=== PATIENT | female | born 1965 | race Caucasian/White ===

== ENCOUNTER → 2020-06-25 08:15 | Outpatient (CLI) | payer BC, SELFPAY ==
[2020-06-25 08:51] LABS: Basophils # 0.1 K/mm3 (0-0.2); Basophils % 0.5 % (0.1-2.0); Eosinophils # 0.3 K/mm3 (0.0-0.4); Eosinophils % 2.4 % (0.1-12.0); Hematocrit 39.4 % (37.0-47.0); Lymphocytes # 5.6 K/mm3 (0.7-4.5); Lymphocytes % 42.7 % (10-50); Mean Corpuscular Hemoglobin 30.9 pg (27.0-31.2); Mean Corpuscular Volume 93.7 fl (81-99); Monocytes # 0.8 K/mm3 (0.1-1.0); Monocytes % 6.2 % (1.7-9.3); Neutrophils # 6.3 K/mm3 (1.8-7.8); Neutrophils % 48.3 % (37.0-80.0); Platelet Count 497 K/mm3 (142-424); Red Cell Distribution Width 13.7 % (11.5-17.5); White Blood Count 13.1 K/mm3 (4.8-10.8)
[2020-06-25 09:21] LABS: Anion Gap 12.7 mEq/L (5-15); Blood Urea Nitrogen 15 mg/dl (7-17); Calcium 9.9 mg/dl (8.4-10.2); Carbon Dioxide 30 mmol/L (22.0-30.0); Chloride 102 mmol/L (98-107); Estimated Glomerular Filt Rate 74 ml/min (>60); GFR (African American) 89 ML/MIN (>60); Glucose 100 mg/dl (74-100); Potassium 4.7 mmoL/L (3.5-5.1); Sodium 140 mmol/L (136-145)
[2020-06-25 10:51] LABS: Coronavirus 19 IgG Antibody Negative (Negative); Coronavirus 19 IgM Antibody Negative (Negative)
== END ==
PROVIDERS: Visit Provider Surgery
DX: L98.9 Disorder of the skin and subcutaneous tissue, unspecified (principal); Z01.818 Encounter for other preprocedural examination
CPT/HCPCS: 36415; 80048; 85025; 86328

== ENCOUNTER 2020-06-26 06:06 | Day surgery (SDC) | payer BC, SELFPAY ==
[2020-06-23 13:43] VITALS: BMI 25.6
[2020-06-26] VITALS (12 sets, daily range): BP systolic 100–131; BP diastolic 64–83; PULSE 62–76; RESP 12–21; TEMP 36.1–36.6; O2SAT 95–100
--- NOTE | 2020-06-26 06:51 | P.PN_ITS ---
[facility] Anesthesia Checklist - Structural Data Admitted From: Home Planned Operative Procedure/s: excision neoplasm chest Consent for Planned Operative Procedure(s) Verified: Yes - Additional verifications Anesthesia Reactions: No Hx Blood Transfusions: No Blood Transfusion Reaction: No - Airway Assessment C-Spine Mobility Assessed: Yes TMJ Mobility Assessed: Yes Dentition: Good Dentition - Neurological Assessment Level of Consciousness: Awake, Alert, Appropriate - Anesthesia Plan Anesthesia Risk discussed: Yes Anesthesia Plan: Verified ASA Class: II Anesthesia Type: General [facility] History I have reviewed the patient's past medical history: Yes Medical History: Reports:: Anxiety, Asthma, Hyperlipidemia Denies:: Cancer, Diabetes Mellitus Type 1, Diabetes Mellitus Type 2, MRSA, Seizures *Have you ever received a pneumonia vaccine?: No *Have you received a flu vaccine this season?: Yes Other Medical History: Reports: Other. Denies: Blood Transfusion Reaction Anesthesia experience/problems:: none Other Surgeries: Yes: Colonoscopy, Hysterectomy-Total, Other Amputation: No Fractures: Yes - *Social History Last grade of school completed: High school graduate Smoking Status: Never smoker Alcohol Intake: never Substance Use Type: denies use *Occupational Status:: employed *Travel in the last 8 weeks: None - Psychiatric History Pschychiatric History:: Reports:: Anxiety Family Hx:: Cancer, Diabetes
--- NOTE | 2020-06-26 07:41 | HMH.OPNOTE ---
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 General anesthesia with laryngeal mask airway was achieved. Her upper chest and neck were prepped and draped in a sterile fashion. After infiltration of local anesthetic an elliptical incision was made around the left upper chest skin lesion that was essentially along the medial clavicular margin. The deep subcutaneous tissue was dissected with electrocautery. The lesion was excised in toto and passed off for pathologic evaluation. It was marked with suture for orientation (short superior/long lateral). Electrocautery was utilized to achieve hemostasis and skin was reapproximated with interrupted 4-0 nylon. 5 tiny skin tags were then carefully elevated and excised with electrocautery. Dressings were applied and the patient was transferred to recovery in stable condition. Condition: stable Disposition: PACU Specimens:: Skin neoplasm left upper chest Complications:: No immediate
--- NOTE | 2020-06-26 07:46 | P.PN_ITS ---
[facility] Anesthesia Record Part I Intake, IV Amount: 1,000 Estimated blood loss (mL): 0 Urine output (mL): 0 Blood Pressure: 100/64 SaO2: 100 Pulse Rate: 62 Respiratory Rate: 12 Temperature: 97 F Patient is:: Awake, Stable Stable to PACU at:: 07:45
--- NOTE | 2020-06-26 10:44 | P.PN_ITS ---
[facility] Anesthesia Record Part II Discharge Time: 08:15 Destination: located within [facility] PACU nurse assessment reviewed?: Yes Patient Condition:: Good Anesthesia Complications:: None Swallowing reflex intact?: Yes Cyanosis?: No Blood Pressure: 122/73 Pulse Rate: 66 Temperature: 97.0 F Mental Status: Alert & Oriented Pain level:: 0 Nausea and/or vomitting:: None Intake, IV Amount: 1,000
== END 2020-06-26 08:53 | disposition home or self-care (01) ==
LOC: OR 06:07
PROVIDERS: PCP Physician Assistant; Visit Provider Surgery
PROC: (CPT 11602; principal; 2020-06-26 07:30)
DX: C44.599 Other specified malignant neoplasm of skin of other part of trunk (principal); L91.8 Other hypertrophic disorders of the skin; J45.909 Unspecified asthma, uncomplicated; E78.5 Hyperlipidemia, unspecified; F41.9 Anxiety disorder, unspecified; Z79.82 Long term (current) use of aspirin; Z79.899 Other long term (current) drug therapy; Z79.890 Hormone replacement therapy; Z90.710 Acquired absence of both cervix and uterus; Z83.3 Family history of diabetes mellitus; Z80.9 Family history of malignant neoplasm, unspecified
CPT/HCPCS: 11602; 11200; 96374; J2405

== ENCOUNTER → 2020-08-13 14:12 | Outpatient (CLI) | payer BC, SELFPAY ==
[2020-08-13 14:29] LABS: Basophils # 0.1 K/mm3 (0-0.2); Basophils % 0.5 % (0.1-2.0); Eosinophils # 0.2 K/mm3 (0.0-0.4); Eosinophils % 1.8 % (0.1-12.0); Hematocrit 39.7 % (37.0-47.0); Hemoglobin 12.8 g/dL (12.2-16.2); Lymphocytes # 4.5 K/mm3 (0.7-4.5); Lymphocytes % 38.6 % (10-50); Mean Corpuscular HGB Conc 32.4 g/dL (31.8-35.4); Mean Corpuscular Hemoglobin 30.3 pg (27.0-31.2); Mean Corpuscular Volume 93.7 fl (81-99); Mean Platelet Volume 7.8 fl (7.4-10.4); Monocytes # 0.7 K/mm3 (0.1-1.0); Monocytes % 5.6 % (1.7-9.3); Neutrophils # 6.3 K/mm3 (1.8-7.8); Neutrophils % 53.5 % (37.0-80.0); Platelet Count 450 K/mm3 (142-424); Red Blood Count 4.23 M/mm3 (4.20-5.40); Red Cell Distribution Width 13.7 % (11.5-17.5); White Blood Count 11.7 K/mm3 (4.8-10.8)
== END ==
PROVIDERS: Visit Provider Internal Medicine Medical Oncology
DX: C44.99 Other specified malignant neoplasm of skin, unspecified (principal); D72.829 Elevated white blood cell count, unspecified
CPT/HCPCS: 36415; 85025

== ENCOUNTER → 2020-10-13 08:31 | Outpatient (POV) | payer BC, SELFPAY | PROVIDERS: Visit Provider Dermatology | DX: Z00.00 Encounter for general adult medical examination without abnormal findings (principal) ==

== ENCOUNTER → 2020-11-06 13:30 | Outpatient (CLI) | payer BC, SELFPAY | PROVIDERS: PCP Physician Assistant; Visit Provider Physician Assistant | DX: R06.00 Dyspnea, unspecified (principal); Z86.19 Personal history of other infectious and parasitic diseases | CPT/HCPCS: 94060; 94618; 94726; 94729 ==

== ENCOUNTER → 2021-01-06 10:33 | Outpatient (CLI) | payer BC, SELFPAY ==
--- NOTE | 2021-01-06 10:33 | MM_ITS ---
PROCEDURE: MM DIG SCREENING MAMM BI W/CAD Digital Breast Tomosynthesis Included CLINICAL INDICATION: Breast cancer screening There is a history of breast cancer in the patient's paternal aunt. There has been a previous biopsy left breast for benign disease. COMPARISON: MG MG 3D JAN W MAMMO BI SCREENING INCL CAD from 10/05/2018 MG SUSAN 3D JAN W MAMMO BI SCREENING INCL CAD from 10/11/2019 TECHNIQUE: Standard CC and MLO images and 3D Tomosynthesis was obtained. R2 CAD reviewed. FINDINGS: Prominent diffuse heterogenic fibroglandular densities are seen throughout both breast which somewhat limits the accuracy of mammography. Jan images are most helpful and this type of dense breast parenchyma. There are few benign-appearing microcalcifications in each breast. There is a mole marker near the axillary tail right breast. There is a biopsy clip left breast. There is a possible asymmetric nodular density upper-outer quadrant right breast best seen on the CC projection. This appears to be a true nodule on CC jan images but not as well seen on the MLO images. Recommend the patient return for spot compression views and ultrasound for additional evaluation. There are no suspicious microcalcifications. IMPRESSION: Diffusely dense and heterogenic parenchymal pattern with possible asymmetric density right breast BI-RAD Category: 0 Need Additional Imaging Evaluation FOLLOW-UP: IMM Immediate Follow-up Recommended (A letter has been sent to the patient regarding results of the study.) Dictated by: Dr. Hugo Brady MD 01/15/2021 08:19 Dr. Hugo Brady MD in [place] 01/15/2021 08:19
== END ==
PROVIDERS: PCP Physician Assistant; Visit Provider Physician Assistant
DX: Z12.31 Encounter for screening mammogram for malignant neoplasm of breast (principal)
CPT/HCPCS: 77063; 77067

== ENCOUNTER → 2021-01-28 13:44 | Outpatient (CLI) | payer BC, SELFPAY ==
--- NOTE | 2021-01-28 13:44 | MM_ITS ---
PROCEDURE: MM DIG MAMM DX UNILAT RT CAD Digital Breast Tomosynthesis Included CLINICAL INDICATION: abn mamm COMPARISON: MG MG 3D SARAH W MAMMO BI SCREENING INCL CAD from 10/05/2018 MG SUSAN 3D SARAH W MAMMO BI SCREENING INCL CAD from 10/11/2019 MG MM DIG SCREENING MAMM BI W/CAD from 01/06/2021 US US BREAST RT COMPLETE from 01/28/2021 TECHNIQUE: Spot compression views were obtained in MLO and CC projection and 90 degree lateral view. R2 CAD reviewed. FINDINGS: The 90 degree of lateral view and spot MLO views tendon lessen concern. However on the spot CC views there appears be a persistent nodular density best seen on the cc tomograms as described previously. Ultrasound performed same date showed at least 2 small benign-appearing hypoechoic cystic lesions the 1 10 o'clock position there is a nipple measures 0.3 by 0.5 cm and has internal echoes and this likely is complex cyst. There is a similar appearing nodular lesion the 6 o'clock position near the nipple measuring 0.4 by 0.2 x 0.2 cm. IMPRESSION: Diffuse breast density with too small benign-appearing hypoechoic lesions likely representing small cysts with internal debris. BI-RAD Category: 2 Benign Finding(s) FOLLOW-UP: 1YR 1 Year Follow-up (A letter has been sent to the patient regarding results of the study.) Dictated by: Dr. Hugo Brady MD 02/09/2021 07:49 Dr. Hugo Brady MD in [place] 02/09/2021 07:49
== END ==
PROVIDERS: PCP Physician Assistant; Visit Provider Physician Assistant
DX: R92.8 Other abnormal and inconclusive findings on diagnostic imaging of breast (principal)
CPT/HCPCS: 76641; 77061; 77065; G0279

== ENCOUNTER → 2021-05-11 13:50 | Outpatient (CLI) | payer BC, SELFPAY ==
[2021-05-11 13:57] LABS: Basophils # 0.1 K/mm3 (0-0.2); Eosinophils # 0.3 K/mm3 (0.0-0.4); Eosinophils % 2.8 % (0.1-12.0); Hematocrit 39.5 % (37.0-47.0); Hemoglobin 13.2 g/dL (12.2-16.2); Lymphocytes # 4.3 K/mm3 (0.7-4.5); Lymphocytes % 42.2 % (10-50); Mean Corpuscular HGB Conc 33.5 g/dL (31.8-35.4); Mean Corpuscular Hemoglobin 30.3 pg (27.0-31.2); Mean Corpuscular Volume 90.7 fl (81-99); Mean Platelet Volume 9.7 fl (7.4-10.4); Monocytes # 0.8 K/mm3 (0.1-1.0); Monocytes % 7.4 % (1.7-9.3); Neutrophils # 4.8 K/mm3 (1.8-7.8); Neutrophils % 46.7 % (37.0-80.0); Platelet Count 485 K/mm3 (142-424); Red Blood Count 4.36 M/mm3 (4.20-5.40); Red Cell Distribution Width 14.1 % (11.5-17.5); White Blood Count 10.3 K/mm3 (4.8-10.8)
[2021-05-11 14:32] LABS: 25-OH Vitamin D, Total 56.2 ng/mL (30-100)
[2021-05-11 15:38] LABS: Alanine Aminotransferase 14 U/L (12-78); Albumin Level 4.3 g/dl (3.5-5.0); Albumin/Globulin Ratio 1.8 (1.1-1.8); Alkaline Phosphatase 80 U/L (38-126); Anion Gap 11.6 mEq/L (5-15); Aspartate Amino Transferase 24 U/L (14-36); Bilirubin,Total 0.5 mg/dl (0.2-1.3); Blood Urea Nitrogen 14 mg/dl (7-17); Calcium 9.8 mg/dl (8.4-10.2); Carbon Dioxide 29 mmol/L (22.0-30.0); Chloride 106 mmol/L (98-107); Chol/HDL Ratio 3.1 (1-3.5); Cholesterol 173 mg/dl (140-200); Estimated Glomerular Filt Rate 86 ml/min (>60); GFR (African American) 104 ML/MIN (>60); Globulin 2.4 g/dL (1.3-3.2); Glucose 93 mg/dl (74-100); HDL Cholesterol 55 mg/dl (40-60); Potassium 4.6 mmoL/L (3.5-5.1); Sodium 142 mmol/L (136-145); Total Protein,Serum 6.7 g/dl (6.3-8.2); Triglycerides 106 mg/dl (30-150); VLDL Cholesterol 21 mg/dL (0-40)
[2021-05-11 15:49] LABS: Direct LDL Cholesterol 91.71 mg/dL (100-129)
[2021-05-11 15:59] LABS: Free T4 (Free Thyroxine) 0.89 ng/dl (0.78-2.19)
[2021-05-11 16:08] LABS: Thyroid Stimulating Hormone 2.31 uIU/mL (0.465-4.68)
[2021-05-11 16:26] LABS: Vitamin B12 861 pg/mL (239-931)
== END ==
PROVIDERS: Visit Provider Physician Assistant
DX: Z00.00 Encounter for general adult medical examination without abnormal findings (principal); C44.99 Other specified malignant neoplasm of skin, unspecified; E53.8 Deficiency of other specified B group vitamins
CPT/HCPCS: 80053; 80061; 82306; 82607; 84439; 84443; 85025

== ENCOUNTER → 2021-09-09 15:01 | Outpatient (CLI) | payer BC, SELFPAY ==
--- NOTE | 2021-09-09 15:01 | CT_ITS ---
PROCEDURE: CT HEAD/BRAIN WO CON CLINICAL INDICATION: persistent left OM/ R/O mastoiditis COMPARISON: No exams were available for comparison TECHNIQUE: Axial images obtained. All CT scans at the facility use one or more dose reduction, viz: automated exposure control, ma/kV adjustment per patient size (including targeted exams where dose is matched to indication, i.e. head), or iterative reconstruction technique. FINDINGS: No midline shift or mass effect is evident. There is attenuation of the frontal horn of the left lateral ventricle. No obvious masses evident in this region. It is not uncommon to see ventricular asymmetry of the frontal horns however this is somewhat more prominent than usual. Consider MRI of the brain without and with contrast to exclude a subtle lesion at this region. Mastoid sinuses have an unremarkable appearance. The middle ears are well aerated. Appears the patient has had bilateral maxillary antrostomy. IMPRESSION: No definite acute intracranial findings. Attenuation of the frontal horn of the left lateral ventricle. Suggest MRI of the brain without and with contrast to exclude an underlying lesion at this area. Unremarkable mastoid sinuses. Dictated by: Jose Alfredo Hall MD 09/09/2021 16:58 Jose Alfredo Hall MD in [place] 09/09/2021 16:58
== END ==
PROVIDERS: PCP Physician Assistant; Visit Provider Physician Assistant
DX: R42 Dizziness and giddiness (principal); H66.92 Otitis media, unspecified, left ear
CPT/HCPCS: 70450

== ENCOUNTER → 2021-09-30 14:18 | Outpatient (CLI) | payer BC, SELFPAY ==
[2021-09-30 14:45] LABS: Basophils # 0.1 K/mm3 (0-0.2); Basophils % 0.8 % (0.1-2.0); Eosinophils # 0.2 K/mm3 (0.0-0.4); Hematocrit 40.2 % (37.0-47.0); Lymphocytes # 4.9 K/mm3 (0.7-4.5); Lymphocytes % 41.4 % (10-50); Mean Corpuscular HGB Conc 32.4 g/dL (31.8-35.4); Mean Corpuscular Hemoglobin 30.4 pg (27.0-31.2); Mean Corpuscular Volume 93.8 fl (81-99); Mean Platelet Volume 8.7 fl (7.4-10.4); Monocytes # 0.6 K/mm3 (0.1-1.0); Monocytes % 5.4 % (1.7-9.3); Neutrophils # 5.9 K/mm3 (1.8-7.8); Neutrophils % 50.4 % (37.0-80.0); Platelet Count 562 K/mm3 (142-424); Red Blood Count 4.29 M/mm3 (4.20-5.40); Red Cell Distribution Width 13.8 % (11.5-17.5); White Blood Count 11.8 K/mm3 (4.8-10.8)
== END ==
PROVIDERS: Visit Provider Internal Medicine Medical Oncology
DX: D72.829 Elevated white blood cell count, unspecified (principal)
CPT/HCPCS: 36415; 85025

== ENCOUNTER → 2022-02-10 09:06 | Outpatient (CLI) | payer BC, SELFPAY ==
--- NOTE | 2022-02-10 | CA_ITS ---
APPROVED REPORT Exam: Exercise Treadmill Technologist: Sona Tejeda, Ht: 5 ft 5 in Wt: 160 lbs BSA: 1.80 m2 HR: 70 bpm BP: 149/87 mmHg Rhythm: NSR, POOR R WAVE PROGRESSION, NS ST ABN IN LEADS III AND AVF Medical History Medical History: Hyperlipidemia Medications: Aspirin,,,,, Pravastatin,,,,, Premarin,,,,, Flonase,,,,, Albuterol,,,,, Tramadol,,,,, Montelukast,,,,, MeLOXICAM,,,,, Prednisone,,,,, BuPROPION,,,,, AmOXICILLIAN,,,,, AZelastin,,,,, Allergies: No known drug allergies Cardiac Risk Factors: Hyperlipidemia, Smoking Stress Test Details Test: Natasha, Exercise stress testing was performed using a Natasha protocol., Exercise stress testing was performed using a modified Natasha protocol. HR Resting HR: 84 bpm Max Heart Rate (APMHR): 162 bpm Max HR Achieved: 161 bpm Target HR (85% APMHR): 138 bpm % of APMHR: 99 Recovery HR: 85 bpm BP Resting BP: 149/87 mmHg Max BP: 180/86 mmHg Recovery BP: 134.0/78.0 mmHg ECG Resting ECG: NSR, POOR R WAVE PROGRESSION, NS ST ABN IN LEADS III AND AVF Clinical Exercise duration: 09:42 min Highest Stage Achieved: Exercise capacity: 10.1 METs Stress ECG Conclusion PT EXERCISED 9:42 INTO STAGE 4 OF NATASHA PROTOCOL. NO CP. OCC PVC. ALLOWING FOR MOTION ARTIFACT AND BASELINE ABNS, THE SP RESPONSE TO EXERCISE APPEARS TO BE WITHIN NORMAL LIMITS. PROBABLY NORMAL GXT. REST AND STRESS ECHO IMAGES REPORTED SEPARATELY. Test Summary Stage 3 03:00 14.0 3.4 152 . 180/ 86 . . REST . . . . . . . Sitting REST 03:49 0.0 0.0 84 . 149/ 87 . . Stage 1 01:00 10.0 1.7 96 . . . . Stage 1 02:00 10.0 1.7 100 . . . . Stage 1 03:00 10.0 1.7 105 . . . . Stage 2 01:00 12.0 2.5 117 . . . . Stage 2 02:00 12.0 2.5 119 . 154/ 80 . . Stage 2 03:00 12.0 2.5 127 . 154/ 80 . . Stage 3 01:00 14.0 3.4 142 . . . . Stage 3 02:00 14.0 3.4 146 . 180/ 86 . . Stage 3 03:00 14.0 3.4 152 . 180/ 86 . . Stage 4 00:42 16.0 4.2 160 . . . Stop exercise at 09:42 RECOVERY 01:00 0.0 0.0 132 . . . . RECOVERY 02:00 0.0 0.0 102 . . . . RECOVERY 03:00 0.0 0.0 95 . . . . RECOVERY 04:00 0.0 0.0 90 . . . . RECOVERY 05:00 0.0 0.0 87 . 132/ 77 . . RECOVERY 06:00 0.0 0.0 88 . 132/ 77 . . RECOVERY 07:00 0.0 0.0 91 . 132/ 77 . . RECOVERY 07:14 0.0 0.0 94 . 134/ 78 . . Electronically signed by : Gurpreet Zuniga MD 02/11/2022 12:17:07
--- NOTE | 2022-02-10 09:07 | CA_ITS ---
APPROVED REPORT EXAM: Comprehensive 2D, Doppler, and color-flow Echocardiogram Cut Tobacco Bulker: Chuyita Wang RVT Ht: 5 ft 5 in Wt: 160lbs BSA: 1.80 BP: 137/86 mmHg Indications: CP,SOA,ASTHMA,FATIGUE,HLD,EX SMOKER,MURMUR 2D Dimensions LVOT 1.95 cm (M/F) 1.5-2.5 LA Volume 22.20 mL LA Volume Index 12.33 mL/m2 (M/F) 16-34 M-Mode Dimensions RVDd 2.54 cm (0.9-2.6) LA Diam 3.25 cm (1.9-4.0) LVDd 4.18 cm (3.5-5.7) Ao Diam 3.00 cm (2.0-3.7) LVDs 2.64 cm (3.5-5.7) IVSd 1.39 cm (0.6-1.1) PWd 0.75 cm (0.6-1.1) EF (Teich) 67.10% FS 36.80% EDV (Teich) 77.70 mL TAPSE 2.10 (<1.7) ESV (Teich) 25.60 mL LV Diastology E Decel Time 190.00 (160-240 msec) E/A Ratio 0.8 MED E' 6.00 (< 7 cm/sec) E'/MED E' Ratio 13.95 (>14) LAT E' 6.80 (<10 cm/sec) E/LAT E' Ratio 12.31 (>14) Aortic Valve AI PHT 852.00 ms AO Peak GR. 16.40 mmHg Mitral Valve MV E Max Neftali. 84.00 (40-130 cm/s) MV A Velocity 105.00 (40-130 cm/s) E/A Ratio 0.80 MV Decel. Time 190.00 (160-240 ms) MV PHT 56.00 ms Pulmonary Valve PV Peak Velocity 71.00 (50-150 cm/s) Tricuspid Valve TR P. Velocity 219.00 cm/s RAP Estimate 10.00 mmHg RVSP 29.10 mmHg Left Ventricle Left atrium is mildly enlarged, left ventricle is normal size, mild concentric left ventricular hypertrophy, estimated ejection fraction 55% with no regional wall motion abnormality. Grade 1 diastolic dysfunction seen with tissue Doppler evidence of raise left atrial pressure. Right Ventricle Right atrium and right ventricle are mildly enlarged with normal contractility. Aortic Valve Aortic valve is minimally thickened and fibrosed, there is no aortic stenosis, there is mild aortic insufficiency. Mitral Valve Mitral valve is grossly normal, there is mild mitral regurgitation. Tricuspid Valve Tricuspid valve grossly normal, there is mild tricuspid regurgitation, tricuspid regurgitation jet velocity is inadequate for calculation of the right ventricular systolic pressure. Pulmonic Valve Pulmonic valve is poorly visualized. Great Vessels Aortic root is normal size. Inferior vena cava is mildly dilated without significant inspiratory collapse. Pericardium No significant pericardial effusion noted. Conclusion 1. Mild biatrial enlargement, normal left ventricular size, mild concentric left ventricular hypertrophy, visually estimated ejection fraction 55% with no regional wall motion abnormality, grade 1 diastolic dysfunction seen with tissue Doppler evidence of raise left atrial pressure. 2. Mildly enlarged right ventricle with normal contractility. 3. Mild aortic, mild mitral and tricuspid regurgitation. 4. No significant pericardial effusion noted. 5. Inferior vena cava is mildly dilated without significant inspiratory collapse. Electronically signed by : Gurpreet Zuniga MD 02/11/2022 14:58:11
--- NOTE | 2022-02-10 09:07 | CA_ITS ---
APPROVED REPORT EXAM: Comprehensive 2D, Doppler, and color-flow Echocardiogram Eastern Philosophy Professor: Chuyita Wang RVT Ht: 5 ft 5 in Wt: 160lbs BSA: 1.80 BP: 137/86 mmHg Indications: CP,SOA,ASTHMA,MURMUR,HLD,FATIGUE,EX SMOKER Stress Test Details HR Max Heart Rate (APMHR): 162.262157 bpm Target HR (85% APMHR): 137.044165 bpm BP ECG Conclusion 1. Patient exercised on Ugo protocol achieved 10.1 METs of workload on treadmill, the blood pressure response to exercise was adequate, EKG was negative for ischemia, there was no exercise-induced chest discomfort. 2. Normal left ventricular size and function at rest by echocardiogram, with exercise there is increase in contractility of the segments of the myocardium with hyperdynamic left ventricular systolic response, no obvious regional wall motion abnormality to suggest underlying ischemic heart disease. 3. Normal exercise stress echo. Electronically signed by : Gurpreet Zuniga MD 02/11/2022 15:05:48
== END ==
PROVIDERS: PCP Physician Assistant; Visit Provider Physician Assistant
DX: R06.00 Dyspnea, unspecified (principal); R07.89 Other chest pain; J44.9 Chronic obstructive pulmonary disease, unspecified; E78.5 Hyperlipidemia, unspecified; K21.9 Gastro-esophageal reflux disease without esophagitis; Z87.891 Personal history of nicotine dependence
CPT/HCPCS: 93017; 93306; 93350

== ENCOUNTER → 2022-02-16 12:27 | Outpatient (CLI) | payer BC, SELFPAY ==
--- NOTE | 2022-02-16 12:27 | MM_ITS ---
PROCEDURE INFORMATION: Exam: MG Bilateral Screening 3D Mammography Exam date and time: 02/16/2022 12:54 PM Age: 56 years old Clinical indication: The patient presents for breast screening exam; Additional info: Screening xmg TECHNIQUE: Imaging protocol: Bilateral Screening tomosynthesis and 2D mammography including computer-aided detection (CAD) when performed. COMPARISON: 1. MG MM DIG MAMM DX UNILAT RT CAD 01/28/2021 1:48 PM 2. MG MM DIG SCREENING MAMM BI W/CAD 01/06/2021 10:32 AM 3. MG SUSAN 3D SARAH W MAMMO BI SCREENING INCL CAD 10/11/2019 12:04 PM FINDINGS: MAMMOGRAPHY: Breast composition: The breasts are heterogeneously dense, which may obscure small masses. Mass: No suspicious masses. Architectural distortion: No suspicious distortion. Calcifications: No suspicious calcifications. Asymmetric density: None. Skin thickening: None. Axillary adenopathy: None. IMPRESSION: No mammographic evidence of malignancy. Annual screening is recommended unless otherwise clinically indicated. ASSESSMENT: BI-RADS Category 1: Negative
== END ==
PROVIDERS: PCP Physician Assistant; Visit Provider Nurse Practitioner Obstetrics & Gynecology
DX: Z12.31 Encounter for screening mammogram for malignant neoplasm of breast (principal)
CPT/HCPCS: 77063; 77067

== ENCOUNTER → 2022-04-14 10:28 | Outpatient (CLI) | payer BC, SELFPAY ==
[2022-04-14 17:46] LABS: Basophils # 0.2 K/mm3 (0-0.2); Basophils % 1.5 % (0.1-2.0); Eosinophils # 0.3 K/mm3 (0.0-0.4); Eosinophils % 3.2 % (0.1-12.0); Hematocrit 41.9 % (37.0-47.0); Hemoglobin 13.4 g/dL (12.2-16.2); Lymphocytes # 4.3 K/mm3 (0.7-4.5); Lymphocytes % 43.3 % (10-50); Mean Corpuscular Hemoglobin 30.5 pg (27.0-31.2); Mean Corpuscular Volume 95.1 fl (81-99); Monocytes # 0.5 K/mm3 (0.1-1.0); Monocytes % 5.2 % (1.7-9.3); Neutrophils # 4.7 K/mm3 (1.8-7.8); Neutrophils % 46.8 % (37.0-80.0); Platelet Count 574 K/mm3 (142-424); Red Blood Count 4.41 M/mm3 (4.20-5.40); Red Cell Distribution Width 14.3 % (11.5-17.5)
[2022-04-14 17:55] LABS: Alanine Aminotransferase 17 U/L (12-78); Albumin Level 3.9 g/dl (3.5-5.0); Albumin/Globulin Ratio 1.6 (1.1-1.8); Alkaline Phosphatase 85 U/L (38-126); Anion Gap 8.2 mEq/L (5-15); Aspartate Amino Transferase 26 U/L (14-36); Blood Urea Nitrogen 15 mg/dl (7-17); Calcium 9.9 mg/dl (8.4-10.2); Carbon Dioxide 29 mmol/L (22.0-30.0); Chloride 105 mmol/L (98-107); Chol/HDL Ratio 3.4 (1-3.5); Cholesterol 168 mg/dl (140-200); Estimated Glomerular Filt Rate 74 ml/min (>60); GFR (African American) 89 ML/MIN (>60); Globulin 2.4 g/dL (1.3-3.2); Glucose 99 mg/dl (74-100); HDL Cholesterol 50 mg/dl (40-60); Potassium 4.2 mmoL/L (3.5-5.1); Sodium 138 mmol/L (136-145); Total Protein,Serum 6.3 g/dl (6.3-8.2); Triglycerides 143 mg/dl (30-150); VLDL Cholesterol 29 mg/dL (0-40)
[2022-04-14 18:00] LABS: Bilirubin,Total < 0.1 mg/dl (0.2-1.3)
[2022-04-14 18:07] LABS: C-Reactive Protein 3.3 mg/L (0-4); Direct LDL Cholesterol 90.91 mg/dL (100-129)
[2022-04-14 18:13] LABS: 25-OH Vitamin D, Total 45.8 ng/mL (30-100)
[2022-04-14 18:26] LABS: Thyroid Stimulating Hormone 1.17 uIU/mL (0.465-4.68)
[2022-04-14 18:32] LABS: Erythrocyte Sedimentation Rate 16 mm/hr (0-30)
[2022-04-14 18:45] LABS: Vitamin B12 830 pg/mL (239-931)
[2022-04-16 10:23] LABS: RA Latex Turbid. 12.8 IU/mL (<14.0)
[2022-04-19 00:13] LABS: Anti-Cyclic Citrullinated Pept 5 units (0-19)
[2022-04-19 16:02] LABS: Anti-Centromere B Antibodies <0.2 AI (0.0-0.9); Anti-DNA (DS) Ab Qn <1 IU/mL (0-9); Anti-Jo-1 <0.2 AI (0.0-0.9); Anti-Smith Antibody <0.2 AI (0.0-0.9); Antichromatin Antibodies <0.2 AI (0.0-0.9); Antiscleroderma-70 Antibodies <0.2 AI (0.0-0.9); RNP Antibodies <0.2 AI (0.0-0.9); Sjogren's Anti-SS-A <0.2 AI (0.0-0.9); Sjogren's Anti-SS-B <0.2 AI (0.0-0.9)
== END ==
PROVIDERS: PCP Physician Assistant; Visit Provider Physician Assistant
DX: M25.50 Pain in unspecified joint (principal); I10 Essential (primary) hypertension; E78.5 Hyperlipidemia, unspecified
CPT/HCPCS: 80053; 80061; 82306; 82607; 84443; 85025; 85651; 86140; 86200; 86225; 86235; 86431

== ENCOUNTER → 2022-12-06 10:24 | Outpatient (CLI) | payer BC, SELFPAY ==
[2022-12-06 11:36] LABS: Basophils # 0.1 K/mm3 (0-0.2); Basophils % 1.1 % (0.1-2.0); Eosinophils # 0.3 K/mm3 (0.0-0.4); Eosinophils % 2.7 % (0.1-12.0); Hematocrit 40.3 % (37.0-47.0); Hemoglobin 12.8 g/dL (12.2-16.2); Lymphocytes # 3.9 K/mm3 (0.7-4.5); Lymphocytes % 41.4 % (10-50); Mean Corpuscular HGB Conc 31.8 g/dL (31.8-35.4); Mean Corpuscular Hemoglobin 29.8 pg (27.0-31.2); Mean Corpuscular Volume 93.6 fl (81-99); Mean Platelet Volume 8.8 fl (7.4-10.4); Monocytes # 0.6 K/mm3 (0.1-1.0); Monocytes % 6.7 % (1.7-9.3); Neutrophils # 4.6 K/mm3 (1.8-7.8); Neutrophils % 48.1 % (37.0-80.0); Platelet Count 520 K/mm3 (142-424); Red Cell Distribution Width 13.8 % (11.5-17.5); White Blood Count 9.5 K/mm3 (4.8-10.8)
== END ==
PROVIDERS: PCP Physician Assistant; Visit Provider Internal Medicine Medical Oncology
DX: D72.829 Elevated white blood cell count, unspecified (principal)
CPT/HCPCS: 36415; 85025

== ENCOUNTER → 2022-12-22 11:00 | Outpatient (CLI) | payer BC, SELFPAY ==
[2022-12-22 15:31] LABS: Benzodiazepines Screen,Urine Negative ng/ml (<200)
[2022-12-22 15:32] LABS: Amphetamine/Metha Screen,Urine Negative ng/ml (<1000); Barbiturates Screen,Urine Negative ng/ml (<200)
[2022-12-22 15:33] LABS: Methadone Screen,Urine Negative ng/ml (<300)
[2022-12-22 15:34] LABS: Cannabinoid Screen,Urine Negative ng/ml (<50); Cocaine Screen,Urine Negative ng/ml (<300)
[2022-12-22 15:35] LABS: Opiate Screen,Urine Negative ng/ml (<300)
[2022-12-22 15:36] LABS: Phencyclidine Screen,Urine Negative ng/ml (<25)
== END ==
PROVIDERS: PCP Physician Assistant; Visit Provider Physician Assistant
DX: Z79.899 Other long term (current) drug therapy (principal)
CPT/HCPCS: 80305

== ENCOUNTER → 2023-03-06 07:42 | Outpatient (CLI) | payer BC, SELFPAY ==
--- NOTE | 2023-03-06 07:43 | MM_ITS ---
PROCEDURE INFORMATION: Exam: MG Bilateral Screening 3D Mammography Exam date and time: 03/06/2023 7:38 AM Age: 57 years old Clinical indication: Screening. A paternal aunt had breast cancer. TECHNIQUE: Imaging protocol: Bilateral Screening tomosynthesis and 2D mammography including computer-aided detection (CAD) when performed. COMPARISON: 1. MG MM DIG SCREENING MAMM BI W/CAD 02/16/2022 12:54 PM 2. MG MM DIG MAMM DX UNILAT RT CAD 01/28/2021 1:48 PM 3. MG MM DIG SCREENING MAMM BI W/CAD 01/06/2021 10:32 AM 4. MG SUSAN 3D SARAH W MAMMO BI SCREENING INCL CAD 10/11/2019 12:04 PM FINDINGS: MAMMOGRAPHY: Breast composition: The breasts are heterogeneously dense, which may obscure small masses. Mass: No suspicious mass. Architectural distortion: None. Calcifications: No suspicious calcifications. Asymmetric density: None. Skin thickening: None. Axillary adenopathy: None. IMPRESSION: No mammographic evidence of malignancy. Annual screening is recommended unless otherwise clinically indicated. ASSESSMENT: BI-RADS Category 1: Negative
== END ==
PROVIDERS: PCP Physician Assistant; Visit Provider Nurse Practitioner Obstetrics & Gynecology
DX: Z12.31 Encounter for screening mammogram for malignant neoplasm of breast (principal)
CPT/HCPCS: 77063; 77067

== ENCOUNTER 2023-04-08 08:12 | Emergency (ER) | payer BC, SELFPAY ==
[2023-04-08 08:28] VITALS: BP 122/84; PULSE 74; RESP 18; TEMP 37; O2SAT 98; BMI 26.6
[2023-04-08 08:38] LABS: UTC Strep Screen (Rapid) Negative (Negative)
--- NOTE | 2023-04-08 08:38 | EXP.UTC ---
Discharge Plan Disposition Patient Disposition: Home, Self-Care Condition: Good Prescriptions Prescriptions: New methylprednisolone [Methylpred DP] 4 mg tablets,dose pack 4 mg PO DAILY Qty: 21 0RF azithromycin 250 mg tablet See Rx Instructions .ROUTE .COMPLEX Qty: 6 0RF Rx Instructions: For 250 mg dose pack: take 500 mg today (day 1), then 250 mg for 4 days (days 2-5) No Action meclizine 25 mg tablet 25 mg PO TID PRN (Reason: dizziness) Qty: 30 0RF prednisone 20 mg tablet 20 mg PO BID Qty: 10 0RF Rx Instructions: administer with food or milk aspirin [Adult Aspirin Regimen] 81 mg tablet,delayed release (DR/EC) 81 mg PO DAILY azelastine 137 mcg (0.1 %) aerosol,spray 1 mcg INTRANASAL NEEDED PRN (Reason: allergies) pravastatin 20 mg tablet 20 mg PO DAILY Qty: 90 1RF montelukast 10 mg tablet 10 mg PO DAILY Qty: 90 1RF lansoprazole 30 mg capsule,delayed release(DR/EC) See Rx Instructions .ROUTE .COMPLEX Qty: 90 3RF Dose Instruction: TAKE 1 CAPSULE BY MOUTH DAILY FOR ACID REFLUX Rx Instructions: TAKE 1 CAPSULE BY MOUTH DAILY FOR ACID REFLUX fluticasone propionate [Flonase Allergy Relief] 50 mcg/actuation spray,suspension 1 spray INTRANASAL BID 30 Days Qty: 9.9 0RF Rx Instructions: administer into each nostril calcium carbonate-vitamin D3 600 mg-10 mcg (400 unit) capsule 1 cap PO BID Qty: 90 0RF bupropion HCl [Wellbutrin SR] 150 mg tablet sustained-release 12 hr 150 mg PO QDAY Qty: 90 0RF albuterol sulfate [ProAir HFA] 90 mcg/actuation HFA aerosol inhaler 2 puff INHALATION Q4-6H PRN (Reason: shortness of breath or wheezing) 90 Days Qty: 8.5 3RF Rx Instructions: administer with spacer Premarin 0.625 mg tablet 0.625 mg PO DAILY 90 Days Qty: 90 3RF Rx Instructions: cyclically tramadol 50 mg tablet 50 mg PO BID PRN (Reason: pain) Qty: 60 0RF nebivolol [Bystolic] 5 mg tablet 5 mg PO DAILY Qty: 90 2RF Referrals Follow up/Referrals: Cassie Levin PA [Primary Care Provider] - See instructions Clinical Impressions Clinical Impression: Upper respiratory tract infection Instructions Patient Instructions: Acute Bronchitis, DI for Viral Upper Respiratory Infection -- Adult Discharge ED Provider: Remedios Maurice [facility] HPI General Stated complaint: Congestion,Cough,Sore throat Mode of Arrival: Ambulatory Source of Information: Patient Limitations: No Limitations Time Seen by Provider: 04/08/23 08:29 Description of Symptoms (Recalled from Triage Doc. by RN): pt states he has had a coough, sore throat, and earache since Monday HEENT Symptoms (Recalled from RN notes): Yes (cough, ear pain, sore throat) Resp Symptoms (Recalled from RN notes): No Skin Symptoms (Recalled from RN notes): No MS Symptoms (Recalled from RN notes): No Functional Status (Recalled from RN notes): wnl History of Present Illness Provider Complaint: pt reports a history of asthma. She states that her chest has been tight and she reports some yellow sinus drainage and ear pressure. She reports that her throat has been sore and scratchy. She reports taking Bromfed for her symptoms. She denies any fever. Grandson has had similar symptoms. Related Data Home Medications Medication Instructions Recorded Confirmed aspirin 81 mg tablet,delayed 81 mg PO DAILY Blood thinner 05/14/20 04/08/23 release (Adult Aspirin Regimen) azelastine 137 mcg (0.1 %) nasal 1 mcg intranasal NEEDED PRN 05/14/20 12/22/22 spray aerosol allergies Previous Rx's Medication Instructions Recorded albuterol sulfate 90 mcg/actuation 2 puff inhalation Q4-6H PRN 12/02/22 aerosol inhaler (ProAir HFA) shortness of breath or wheezing 90 days #8.5 grams bupropion HCl 150 mg tablet,12 hr 150 mg PO QDAY #90 tabs 12/02/22 sustained-release (Wellbutrin SR) calcium carbonate 600 mg-vitamin 1 cap PO BID Supplement #90 cap
[2023-04-08 08:49] VITALS: BP 120/85; PULSE 75; RESP 18; TEMP 36.7; O2SAT 99
== END 2023-04-08 08:49 | disposition home or self-care (01) ==
PROVIDERS: Emergency Provider Nurse Practitioner Family; PCP Physician Assistant
DX: J06.9 Acute upper respiratory infection, unspecified (principal); R07.0 Pain in throat; H92.03 Otalgia, bilateral; J45.909 Unspecified asthma, uncomplicated; K21.9 Gastro-esophageal reflux disease without esophagitis; E78.5 Hyperlipidemia, unspecified; Z87.891 Personal history of nicotine dependence
CPT/HCPCS: 87880; 99204; 99212; G0463

== ENCOUNTER → 2023-06-29 12:56 | Outpatient (CLI) | payer BC, SELFPAY ==
[2023-06-29 13:26] LABS: Basophils # 0.1 K/mm3 (0-0.2); Basophils % 0.6 % (0.1-2.0); Eosinophils # 0.3 K/mm3 (0.0-0.4); Eosinophils % 2.4 % (0.1-12.0); Hematocrit 42.1 % (37.0-47.0); Hemoglobin 13.6 g/dL (12.2-16.2); Lymphocytes # 5.1 K/mm3 (0.7-4.5); Lymphocytes % 46.6 % (10-50); Mean Corpuscular HGB Conc 32.2 g/dL (31.8-35.4); Mean Corpuscular Volume 93.2 fl (81-99); Monocytes # 0.7 K/mm3 (0.1-1.0); Monocytes % 6.5 % (1.7-9.3); Neutrophils # 4.8 K/mm3 (1.8-7.8); Neutrophils % 43.9 % (37.0-80.0); Platelet Count 479 K/mm3 (142-424); Red Blood Count 4.52 M/mm3 (4.20-5.40); Red Cell Distribution Width 14.2 % (11.5-17.5)
[2023-06-29 13:32] LABS: Alanine Aminotransferase 18 U/L (12-78); Albumin/Globulin Ratio 1.5 (1.1-1.8); Alkaline Phosphatase 87 U/L (38-126); Anion Gap 12.4 mEq/L (5-15); Aspartate Amino Transferase 26 U/L (14-36); Bilirubin,Total 0.2 mg/dl (0.2-1.3); Blood Urea Nitrogen 12 mg/dl (7-17); Calcium 9.6 mg/dl (8.4-10.2); Carbon Dioxide 24 mmol/L (22.0-30.0); Chloride 109 mmol/L (98-107); Chol/HDL Ratio 2.9 (1-3.5); Cholesterol 171 mg/dl (140-200); Estimated Glomerular Filt Rate 73 ml/min (>60); GFR (African American) 89 ML/MIN (>60); Globulin 2.6 g/dL (1.3-3.2); Glucose 94 mg/dl (74-100); HDL Cholesterol 58 mg/dl (40-60); Potassium 4.4 mmoL/L (3.5-5.1); Sodium 141 mmol/L (136-145); Total Protein,Serum 6.6 g/dl (6.3-8.2); Triglycerides 165 mg/dl (30-150); VLDL Cholesterol 33 mg/dL (0-40)
[2023-06-29 13:43] LABS: Direct LDL Cholesterol 82.83 mg/dL (100-129)
[2023-06-29 13:50] LABS: 25-OH Vitamin D, Total 59.6 ng/mL (30-100)
[2023-06-29 14:02] LABS: Thyroid Stimulating Hormone 3.34 uIU/mL (0.465-4.68)
[2023-06-29 14:36] LABS: Vitamin B12 > 1000 pg/mL (239-931)
== END ==
LOC: LAB.DROPOF 12:57
PROVIDERS: PCP Physician Assistant; Visit Provider Physician Assistant
DX: E78.5 Hyperlipidemia, unspecified (principal); M19.90 Unspecified osteoarthritis, unspecified site; G89.29 Other chronic pain; Z79.899 Other long term (current) drug therapy
CPT/HCPCS: 80053; 80061; 82306; 82607; 84443; 85025

== ENCOUNTER → 2023-10-03 12:42 | Outpatient (CLI) | payer BC, SELFPAY ==
--- NOTE | 2023-10-03 12:48 | CA_ITS ---
FINAL REPORT TECHNIQUE: Color Doppler, duplex Doppler and macias scale sonography of the bilateral neck arterial vasculature was performed. Velocities were measured in the carotid arteries. Stenosis evaluation based on the validated velocity criteria. CLINICAL HISTORY: Right Bruit FINDINGS: The peak systolic velocity of the right common carotid artery is 70 cm/s. The peak systolic velocity of the right internal carotid artery is 90 cm/s and end diastolic velocity 32 cm/s. The ICA/CCA ratio is 1.3. A minimal amount of plaque is present. The right external carotid artery is patent. The right vertebral artery is patent with antegrade flow. The peak systolic velocity of the left common carotid artery is 75 cm/s. The peak systolic velocity of the left internal carotid artery is 154 cm/s and end diastolic velocity 55 cm/s. The ICA/CCA ratio is 2.1. A moderate amount of plaque is present. The left external carotid artery is patent.The left vertebral artery is patent with antegrade flow. IMPRESSION: Less than 50% bilateral carotid stenoses. Bilateral patent vertebral arteries with antegrade flow. If indicated, CTA or MRA could further evaluate. Reviewed, Interpreted and Dictated by Jaya Liang MD Transcribed by Alexandra Osorio Authenticated and [facility]
== END ==
LOC: RT 12:45
PROVIDERS: PCP Internal Medicine; Visit Provider Internal Medicine
DX: R09.89 Other specified symptoms and signs involving the circulatory and respiratory systems (principal)
CPT/HCPCS: 93880

== ENCOUNTER → 2023-10-16 10:13 | Outpatient (CLI) | payer BC, SELFPAY ==
[2023-10-16 18:05] LABS: Adenovirus,PCR Not Detected (NotDetected); Coronavirus 19, PCR Not Detected (NotDetected); Coronavirus 229E Not Detected (NotDetected); Coronavirus NL63 Not Detected (NotDetected); Coronavirus OC43 Not Detected (NotDetected); Coronovirus HKU1,PCR Not Detected (NotDetected); Human Metapneumovirus Not Detected (NotDetected); Influenza A, PCR Not Detected (NotDetected); Influenza AH1, 2009 Not Detected (NotDetected); Influenza AH1, PCR Not Detected (NotDetected); Influenza AH3,PCR Not Detected (NotDetected); Influenza B, PCR Not Detected (NotDetected); Parainfluenza 1, PCR Not Detected (NotDetected); Parainfluenza 2, PCR Not Detected (NotDetected); Parainfluenza 3, PCR Not Detected (NotDetected); Parainfluenza 4, PCR Not Detected (NotDetected); Respiratory Syncytial Virus Not Detected (NotDetected); Rhinovirus/Enterovirus Not Detected (NotDetected)
== END ==
LOC: LAB.DROPOF 10-17 10:14
PROVIDERS: PCP Internal Medicine; Visit Provider Internal Medicine
DX: R06.02 Shortness of breath (principal)
CPT/HCPCS: 87632; 87635

== ENCOUNTER → 2023-11-17 14:35 | Outpatient (CLI) | payer BC, SELFPAY ==
--- NOTE | 2023-11-17 14:35 | CT_ITS ---
FINAL REPORT TECHNIQUE: Axial CT images of the chest were obtained without contrast. Low-dose protocol was utilized. This study was performed with techniques to keep radiation doses as low as reasonably achievable (ALARA). Individualized dose reduction techniques using automated exposure control or adjustment of mA and/or kV according to the patient's size were employed. CLINICAL HISTORY: lung cancer screening former smoker x 5 yrs 2ppd x 30 yrs COMPARISON: None FINDINGS: CT CHEST WITHOUT, LOW DOSE SCREENING CT Di Vol: 2.90 mGy DLP: 107.33 mGy*cm There is no axillary, mediastinal, or hilar adenopathy. The heart size is normal. There is no pleural or pericardial effusion. The lung windows show a 4 mm density in the anterior right upper lobe best seen on image 38 of series 6004. There is a small nodule in the posterior right lower lobe measuring 4 mm seen on image 58 of series 4. There are advanced changes of centrilobular emphysema. There is a calcified granuloma in the left upper lobe. Limited images of the upper abdomen demonstrate no acute finding. IMPRESSION: Right lung nodules as above. LR Category 2: 12 month follow-up low-dose chest CT is recommended. Reviewed, Interpreted and Dictated by Jaya Liang MD Transcribed by Angela Mcgarry Authenticated and [facility]
== END ==
LOC: RAD 14:35
PROVIDERS: PCP Physician Assistant; Visit Provider Physician Assistant
DX: Z87.891 Personal history of nicotine dependence (principal); Z12.2 Encounter for screening for malignant neoplasm of respiratory organs
CPT/HCPCS: 71271

== ENCOUNTER 2024-01-22 17:37 | Outpatient (CLI) | payer BC, SELFPAY | END 2024-01-22 23:59 | LOC: LAB.DROPOF 17:38 | PROVIDERS: PCP Student in an Organized Health Care Education/Training Program; Visit Provider Student in an Organized Health Care Education/Training Program | DX: R07.0 Pain in throat (principal) | CPT/HCPCS: 87070 ==

== ENCOUNTER 2024-01-23 09:50 | Outpatient (CLI) | payer BC, SELFPAY ==
[2024-01-23 10:43] LABS: Basophils # 0.1 K/mm3 (0-0.2); Basophils % 0.8 % (0.1-2.0); Eosinophils # 0.2 K/mm3 (0.0-0.4); Eosinophils % 1.2 % (0.1-12.0); Lymphocytes # 5.6 K/mm3 (0.7-4.5); Lymphocytes % 33.8 % (10-50); Mean Corpuscular HGB Conc 30.9 g/dL (31.8-35.4); Mean Corpuscular Hemoglobin 30.4 pg (27.0-31.2); Mean Corpuscular Volume 98.1 fl (81-99); Mean Platelet Volume 8.7 fl (7.4-10.4); Monocytes # 1.1 K/mm3 (0.1-1.0); Monocytes % 6.7 % (1.7-9.3); Neutrophils # 9.6 K/mm3 (1.8-7.8); Neutrophils % 57.6 % (37.0-80.0); Platelet Count 535 K/mm3 (142-424); Red Blood Count 4.28 M/mm3 (4.20-5.40); Red Cell Distribution Width 13.6 % (11.5-17.5); White Blood Count 16.7 K/mm3 (4.8-10.8)
[2024-01-23 10:52] LABS: MANUAL DIFFERENTIAL MANUAL DIFFERENTIAL (MANUAL DIFF)
[2024-01-23 12:19] LABS: Lymphocytes % 28 % (10-50); Monocytes % 8 % (2-9); Neutrophils % 64 % (42-76); Platelet Estimate Moderate Increase; RBC Morphology Normal; Total Cells Counted 100
== END 2024-01-23 23:59 ==
LOC: LAB 09:51
PROVIDERS: PCP Physician Assistant; Visit Provider Internal Medicine Medical Oncology
DX: D72.829 Elevated white blood cell count, unspecified (principal)
CPT/HCPCS: 36415; 85007; 85025

== ENCOUNTER 2024-04-25 13:21 | Outpatient (CLI) | payer BC, SELFPAY ==
--- NOTE | 2024-04-25 13:22 | MM_ITS ---
PROCEDURE INFORMATION: Exam: MG Bilateral Screening 3D Mammography Exam date and time: 04/25/2024 1:08 PM Age: 58 years old Clinical indication: Screening mammogram TECHNIQUE: Imaging protocol: Bilateral Screening tomosynthesis and 2D mammography including computer-aided detection (CAD) when performed. COMPARISON: 1. MG MM DIG SCREENING MAMM BI W/CAD 03/06/2023 7:38 AM 2. MG MM DIG SCREENING MAMM BI W/CAD 02/16/2022 12:54 PM 3. MG MM DIG MAMM DX UNILAT RT CAD 01/28/2021 1:48 PM 4. MG MM DIG SCREENING MAMM BI W/CAD 01/06/2021 10:32 AM FINDINGS: MAMMOGRAPHY: Breast composition: The breast is heterogeneously dense, which may obscure small masses. Mass: None. Architectural distortion: No new or suspicious architectural distortion. Calcifications: No new or suspicious calcifications are present Asymmetric density: No new or suspicious asymmetric density is present Skin thickening: None. Axillary adenopathy: None. IMPRESSION: No mammographic evidence of malignancy. Recommend annual screening mammography unless otherwise clinically indicated. ASSESSMENT: BI-RADS category 1: Negative.
== END 2024-04-25 23:59 | disposition home or self-care (01) ==
LOC: RAD 13:22
PROVIDERS: PCP Physician Assistant; Visit Provider Obstetrics & Gynecology
DX: Z12.31 Encounter for screening mammogram for malignant neoplasm of breast (principal)
CPT/HCPCS: 77063; 77067

== ENCOUNTER 2024-06-24 11:47 | Outpatient (CLI) | payer BC, SELFPAY | END 2024-06-24 23:59 | disposition home or self-care (01) | LOC: RT 11:48 | PROVIDERS: PCP Physician Assistant; Visit Provider Physician Assistant | DX: I65.23 Occlusion and stenosis of bilateral carotid arteries (principal); Z87.891 Personal history of nicotine dependence | CPT/HCPCS: 93225; 93227 ==

== ENCOUNTER 2025-09-17 12:42 | Outpatient (CLI) | payer BC, SELFPAY ==
--- OUTSIDE RECORDS SUMMARY | 2025-09-01 04:07 | XMS_ITS | Continuity of Care Document ---
Author Organization [facility] Phone Care Team Providers Care Audio Visual Specialist Name Role Phone Nestor CRUZ Primary Care Nestor CRUZ Primary Attending Nestor CRUZ Admitting Nestor CRUZ Unavailable RESULTS Patient: LATANYA VEGA Date of : 1965 4 LABORATORY RESULTS Information is not available LABORATORY NARRATIVE RESULTS Information is not available RADIOLOGY RESULTS ORDER 100: HAND LT 3V (LOINC : [id number]) ORDER DATE: August 28, 2025 4:13:[address] [facility] PERFORMING LAB: [address] [id number] Final Result Date: August 4:22:[address] [place] [address] Name: TIFFANIE PELAEZ Exam Date: 08/28/2025 : 1965 Age 60 years Gender: F Physician: Nestor CRUZ Facility: [facility] Facility HSV: Outpatient Exam: HAND LT 3V PROCEDURE: XR HAND 3 OR MORE VIEWS LEFT, XR HAND 3 OR MORE VIEWS RIGHT, 08/28/2025 11:22 AM CDT CLINICAL INDICATION: pain. COMPARISON: None TECHNIQUE: 3 views bilateral hands FINDINGS/ IMPRESSION: No acute fracture or subluxation. Mild symmetric bilateral radial carpal joint space. Unremarkable overlying soft tissues. Electronically signed by: Patricia Ignacio MD 08/28/2025 12:35 PM EDT RP Dictated By: PATRICIA IGNACIO Transcribed By: Transcribed On: 08/28/2025 12:22 PM Electronically signed by: PATRICIA IGNACIO 08/28/2025 Thank you for referring TIFFANIE PELAEZ to [facility]. Legally authenticated by SANDEE ESPARZA MD 2025-08-28 12:22:26 ORDER 200: HAND RT 3V (LOINC : [id number]) ORDER DATE: August 28, 2025 4:13:[address] [facility] PERFORMING LAB: [address] [id number] Final Result Date: August 4:22:[address] [place] [address] Name: TIFFANIE PELAEZ Exam Date: 08/28/2025 : 1965 Age 60 years Gender: F Physician: Nestor CRUZ Facility: [facility] Facility HSV: Outpatient Exam: HAND RT 3V PROCEDURE: XR HAND 3 OR MORE VIEWS LEFT, XR HAND 3 OR MORE VIEWS RIGHT, 08/28/2025 11:22 AM CDT CLINICAL INDICATION: pain. COMPARISON: None TECHNIQUE: 3 views bilateral hands FINDINGS/ IMPRESSION: No acute fracture or subluxation. Mild symmetric bilateral radial carpal joint space. Unremarkable overlying soft tissues. Electronically signed by: Patricia Ignacio MD 08/28/2025 12:35 PM EDT RP Dictated By: PATRICIA IGNACIO Transcribed By: Transcribed On: 08/28/2025 12:22 PM Electronically signed by: PATRICIA IGNACIO 08/28/2025 Thank you for referring TIFFANIE PELAEZ to [facility]. Legally authenticated by SANDEE ESPARZA MD 2025-08-28 12:22:31 PATHOLOGY NARRATIVE RESULTS Information is not available MICROBIOLOGY RESULTS No Micro Labs/Results Exist for Patient BLOOD ADMIN RESULTS Information is not available MEDICATIONS HOME MEDICATIONS Status RXNORM NDC Medication Dose Route Frequency Dates Comments Reported By Updated By Drug Treatment Unknown DISCHARGE MEDICATIONS Status RXNORM NDC Medication Dose Route Frequency Dates Dis pense Data Comments Physician Updated By No Discharge Medication Info rmation Available INPATIENT MEDICATIONS Status RXNORM NDC Medication Dose Route Frequency Rat e Quantity Dates Indication Dispense Data Comments Physician Updated By No Inpatient Medication Info rmation Available SOCIAL HISTORY SOCIAL HISTORY - Smoking Status SNOMED-CT Social History Element Description Effective Dates Offered Cessation Comment Updated By [id number] Smoking Status Unknown If Ever Smoked SOCIAL HISTORY - Gender Sex: Female SOCIAL HISTORY - Status : status i nformation is not available Intention in Next Year: intention information is not available SOCIAL HISTORY - Assessments Code System Description Status Date Value of Assessment Updated By Comment Assessment Information is no t available SOCIAL HISTORY - [place] Affiliation [place] information is not av ailable SOCIAL HISTORY - Legal Sex Legal Sex information is not available SOCIAL HISTORY - Sexual Behavior Sexual Orientation Gender Identity SNOMED-CT Description SNO MED -CT Description Activity Level No of Partners Partner Type UpdatedBy Information is not available SOCIAL HISTORY - Occupation Occupation information is no t available HEALTH CONCERNS Problems Concern Status Health Concern problem infor mation not available. Smoking Status Status Years Used Consumed packs p er day Health Concern smoking histo ry information not available. Family History Concern Status Health Concern family histor y information not available. ENCOUNTERS ENCOUNTER INFORMATION Reason for Visit HAND PAIN Admission August 28, 2025 3:52:00 PM [place] [address] [address] Discharge August 28, 2025 3:52:00 PM UTC D ISCHARGED TO HOME OR SELF CARE ENCOUNTER DIAGNOSES Notes information is not xavier ilable. Code System Diagnosis Onset Date Diagnosis information is not available. ABSTRACT DIAGNOSES Code System Diagnosis Updated By Abatement Date I10 ICD10 ESSENTIAL (PRIMA RY) HYPERTENSION [id number] on September 01, 2025 8:06:52 AM UT M79.641 ICD10 PAIN IN RIGHT HAND [id number] o n September 01, 2025 8:06:52 AM UT M79.642 ICD10 PAIN IN LEFT HAND [id number] on September 01, 2025 8:06:52 AM UT I10 ICD10 ESSENTIAL (PRIMA RY) HYPERTENSION [id number] on September 01, 2025 8:06:[address] [facility] M79.641 ICD10 PAIN IN RIGHT HAND [id number] o n September 01, 2025 8:06:[address] [facility] M79.642 ICD10 PAIN IN LEFT HAND [id number] on September 01, 2025 8:06:52 AM UTC CARE TEAM Care Audio Visual Specialist Role D STONE Primary Care D STONE Primary Attending D STONE Admitting D STONE Referring CARE TEAM CARE special effects technician Role on Team Location Telecom Status Start Date End Shaheed e Updated By ANTHONY GONZALEZ PCP normal August 28, 2025 4:00:00 AM UTC August 28, 2025 3:52:00 PM UTC [id number] on August 28, 2025 3:54:38 PM UTC STONE Nestor GONZALEZ Referring normal August 28, 2025 4:00:00 AM UTC August 28, 2025 3:52:00 PM UT [id number] on August 28, 2025 3:54:38 PM UTC STONE Nestor GONZALEZ Attending normal August 28, 2025 4:00:00 AM UTC August 28, 2025 3:52:00 PM UT [id number] on August 28, 2025 3:54:38 PM UT STONE Nestor GONZALEZ Admitting normal August 28, 2025 4:00:00 AM UTC August 28, 2025 3:52:00 PM UTC [id number] on August 28, 2025 3:54:38 PM [facility]
--- OUTSIDE RECORDS SUMMARY | 2025-09-17 12:45 | XMS_ITS | Clinical Summary ---
Author Organization Healthcare Address [address] [place] [address] Care Team Providers Care Tankman Name Role Phone Tere Levinie Nestor GONZALEZ Primary Care Provider [phone] Allergies Active Allergy Reactions Criticality Noted Date Comments Bee Venom Swelling High 04/03/2013 Prednisone Unknown - Patient states they do not know rxn details Low 07/25/2016 In large doses causes her to feel racing heart , CAN take small doses or small increments of time Medications pravastatin (Pravachol) 20 MG tablet TAKE 1 TABLET BY MOUTH DAILY FOR CHOLESTEROL 1 Active montelukast (Singulair) 10 MG tablet TAKE 1 TABLET BY MOUTH DAILY FOR ALLERGIES 1 Active buPROPion SR (Wellbutrin SR) 150 MG 12 hr tablet Take 150 mg by mouth 1 (one) time each day. 2 Active Cobalamin Combinations (B-12) 100-5000 MCG sublingual tablet 500 milligram(s) orally Active Calcium Carb-Cholecalcif shirley (CALCIUM 1000 + D PO) Take by mouth. Ac tive aspirin 81 MG chewable tablet Chew 81 mg 1 (one) time each day. Active Premarin 0.625 MG tablet 2 Active lansoprazole (Prevacid) [address] capsule Take 30 mg by mouth 1 (one) time each day. 2 Active traMADol (Ultram) 50 MG tablet Take 50 mg by mouth 2 (two) times a day if needed. 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 Hemorrhoids 07/14/2014 Overview (04/01/2022): Had colonoscopy 07/14/14 Had colonoscopy 07/14/14 Vitamin D deficiency 11/05/2013 Depression 10/03/2013 GERD (gastroesophageal reflux disease) 3 Asthma 10/03/2012 Chronic foot pain 08/12/2011 Hyperlipemia 01/17/2011 Immunizations Immunization Administration Dates Next Due PPD Skin Test (TB Skin Test) 08/26/2003,08/12/20 03 Family History Medical History Relation Name Comments Menorrhagia Brother FH: bladder can cer Cancer Father FH: cancer Skin cancer Father FH: skin cancer Skin cancer Mother FH: skin cancer Hyperlipidemia Other 1 Family histor y of high cholesterol Asthma Other 2 FH: asthma Conversions - Other Other 3 FHx: all ergies Relation Name Status Comments Brother Father Mother Other 1 Other 2 Other 3 Social History Tobacco Use Types Packs/Day Years Used Date Smoking Tobacco: Former Cigarettes 1 2018 Smokeless Tobacco: Never Tobacco Cessation:Counseling Given: No Alcohol Use Standard Drinks/Week Comments Never 0 (1 standard drink = 0.6 oz pur e alcohol) PHQ-2 Answer Date Recorded Patient Health Questionnaire-2 Score 0 12/06/2022 PHQ-2A Answer Date Recorded Patient Health Questionnaire-2 Score 0 12/06/2022 Comments Unknown Sex and Gender Information Value Date Recorded Sex Assigned at Not on file Legal Sex Female 7:33 PM EDT Gender Identity Not on file Sexual Orientation Not on file Last Filed Vital Signs Vital Sign Reading Time Taken Comments Blood Pressure 119/77 12/06/2022 8:35 AM EST Pulse 60 12/06/2022 8:35 AM EST Temperature 36.7 C (98 F) 12/06/2022 8:35 AM EST Respiratory Rate 18 12/06/2022 8:35 AM EST Oxygen Saturation 98% 12/06/2022 8:35 AM EST Inhaled Oxygen Concentration - - Weight 71.3 kg (157 lb 3 oz) 12/06/2022 8:35 AM EST Height 165.1 cm (5' 5 ) 12/06/2022 8:35 AM EST Body Mass Index 26.16 12/06/2022 8:35 AM EST Plan of Treatment Health Maintenance Due Date Last Done Comments [facility]-HIV Screening 1965 [facility]-Hepatitis C Screening 1965 [facility]-Infant/Child/Adol SDOH Screenings 1965 [facility]- SDOH Screenings 1981 [facility]-Adult SDOH Screenings 1981 [facility]-Pap Smear 1984 [facility]-Cervical Cancer Screening 1993 [facility]-HPV/Cotest 1993 CT Colonography 2008 Colonoscopy 2008 FIT-DNA 2008 FIT 2008 FOBT 2008 Sigmoidoscopy 2008 [facility]-Colorectal Cancer Screening 2008 [facility]-Lung Cancer Screening 2013 [facility]-Zoster Vaccines (1 of 2) 08/08/2018 06/13/2018, 09/12/2014 [facility]-Pneumococcal Vaccine: 50+ Years (2 of 2 - PCV) 01/11/2020 01/11/2019 [facility]-Breast Cancer Screening 10/11/202109/21, 10/11/2019, 10/05/2018, Additional history exists [facility]-RSV Vaccine: 60+ Years or (1 - Risk 60-74 years 1-dose series) 2023 [facility]-Depression Screening 12/06/2023 12/06/2022 ETR-WREZI-30 Vaccine (3 - season) 2025 11/17/2021, 02/26/2021 [facility]-Influenza Vaccine (#1) 07/21/202508/30, 09/09/2020, 09/21/2018, Additional history exists [facility]-DTaP,Tdap,and Td Vaccines (2 - Td or Tdap) 08/18/2032 08/18/2022 [facility]-Obesity Intervention Completed 12/06/2022 HPV Vaccines Aged Out No longer eligi ble based on patient's age to complete this topic [facility]-HIB Vaccines Aged Out No longer e ligible based on patient's age to complete this topic [facility]-Hepatitis A Vaccines Aged Out No longer eligible based on patient's age to complete this topic [facility]-IPV Vaccines Aged Out No longer e ligible based on patient's age to complete this topic [facility]-Rotavirus Vaccines Aged Out No lo nger eligible based on patient's age to complete this topic [place] [address] [place] [address] Care Teams Tankman Relationship Specialty Start Date End Date Cassie Levin PA [address] [place] [address] PCP - General 04/02/21
--- OUTSIDE RECORDS SUMMARY | 2025-09-17 12:45 | XMS_ITS | Patient Health Record ---
Author Organization [facility] Address [address] [place] [address] Care Team Providers Care Student Advisor Name Role Phone Unknown, PCP Primary Care Provider Anamika Islas Unavailable [phone] Allergies No Known Allergies Reason For Referral No Information Medications Medication SIG (Take, Route, Frequency, Duration) Notes Start Date End Date Status Lansoprazole 30 MG 1 capsule 1/2 to 1 h our before morning meal Orally Once a day Active Premarin 0.625 MG 1 tablet Orally Once a day Active Amoxicillin-Pot Clavulanate 875-125 MG 1 tablet Orally twice a day; Duration: 10 days 05/19/2025 Active Aspirin 81 81 MG 1 tablet Orally Once a day Active Calcium 500 MG 1 tablet with meals Orally Twice a day Active Singulair 10 MG 1 tablet Orally Once a day Active Pravastatin Sodium 20 MG 1 tablet Orally Once a day Active Nebivolol HCl 5 MG 1 tablet Orally Once a day Active Immunizations Vaccine Route Administration Date Status Comme [facility] [id number] Flublok, 18yo & older, PFS (0.5mL Admin) Unknown 05/19/2025 Refused Social History Tobacco Use: Social History Observation Description Date Details (start date - stop date) Never Smoker NA - NA Tobacco Control (Standard) Question Answer Notes Tobacco use: Nonsmoker AUDIT-C (Standard) Question Answer Notes Did you have a drink containing alcohol in the p ast year? No Points 0 Interpretation Negative Problems Problem Type SNOMED Code ICD Code Onset Dates Problem Status W/U Status Risk Notes Problem Asthma (902129146) Asthma (J45.909) Active confirmed Problem Hypertension (24444351) Hypertension (I10) Active confirmed Problem Hyperlipidemia (97162083) Hyperlipidemia (E78.5) Active confirmed Problem Prediabetes (812365183) Prediabetes (R73.09) Active confirmed Problem Overweight (796725019) Overweight (BMI 25.0-29.9) (E66.3) Active confirmed Vital Signs Temperature 97.1 degrees Fahrenheit 05/19/2025 Respiratory Rate 18 /min 05/19/2025 Blood pressure diastolic 84 mm Hg 05/19/2025 Height 065 in 05/19/2025 Blood pressure systolic 128 mm Hg 05/19/2025 Weight 0160 lbs 05/19/2025 BMI 26.62 kg/m2 05/19/2025 Encounters Encounter Location Date Provider Diagnosis [facility] [address] [place] [address] 05/19/2025 Anamika Aris Otitis media, left H66.92 ; Ear pain, left H92.02 ; Dysfunction of eustachian tube, bilateral H69.83 ; Nasal congestion with rhinorrhea J34.89 ; Hypertension I10 and Overweight (BMI 25.0-29.9) E66.3 Assessments Encounter Date Diagnosis (ICD Code) Assessment Notes Treatment Notes Treatment Clinical Notes Section Notes 05/19/2025 Otitis media, left (ICD-10 - H66.92) 4mg of dexamethasone was wasted. Take medication as prescribed. Fluids, rest, antihistamine, Tylenol/ibuprofe n as needed, eat nutritious foods. Complete the entire course of antibiotics as prescribed, even when symptoms have improved, to prevent a relapse of infection and the development of antibiotic resistance. Follow up in the clinic or with PCP as needed., Ear Infection (Otitis Media): Care Instructions material was published. Patient reports a history of yeast infection symptoms secondary to antibiotic usage. If symptoms develop patient may start Diflucan as prescribed. 05/19/2025 Ear pain, left (ICD-10 - H92.02) Earache: Care Instructions material was published 05/19/2025 Dysfunction of eustachian tube, bilateral (ICD-10 - H69.83) Eustachian Tube Problems: Care Instructions material was published, Middle Ear Fluid: Care Instructions material was published 05/19/2025 Nasal congestion with rhinorrhea (ICD-10 - J34.89) 05/19/2025 Hypertension (ICD-10 - I10) Monitor your blood pressure as it should be less than 120/80. Regularly follow up with the healthcare provider who manages your high blood pressure., Learning About High Blood Pressure material was published 05/19/2025 Overweight (BMI 25.0-29.9) (ICD-10 - E66.3) Learning About Healthy Weight material was published 05/19/2025 Other Amoxicillin and Clavulanic Acid material was published, Fluconazole material was published NOTE to Provider of Record: MIPS recommendations for Pre Hypertensive Reading in the past 12 months (120-129 systolic or </= 80 diastolic): 1) Recommend to rescreen blood pressure in 2-6 months AND 2) Provide and document recommendations for non-pharmacologic interventions in the Preventative Medicine window, which may include Lifestyle recommendations, Physical Activity recommendations, Weight Reduction Recommendations, or Dietary Recommendations OR Provide and document a referral to alternate care provider Plan Of Treatment No Information Insurance Providers Payer Name Payer Address Payer Phone Subscriber Number Group Number Insured Name Patient Relationship to Insured Coverage Start Date Coverage End Date [facility] [address] [place] [address] [id number] Ifrah Craig Self - patient is the insured Medications Administered Medication Instructions Date of Administration Dosage Notes dexAMETHasone Sodium Phosphate 05/19/2025 6 mg Medical (General) History Medical History History ICD Code Asthma J45.909 Hypertension I10 Hyperlipidemia E78.5 Prediabetes R73.09 Surgical History Surgery Date(Month/Year) Hysterectomy 2005 Septum repair 2008 Right foot repair Skin cancer removals on chest Hospitalization History Reason Date(Month/Year) Childbirth 1989
--- OUTSIDE RECORDS SUMMARY | 2025-09-17 12:45 | XMS_ITS | Continuity of Care Document ---
Author Organization [facility] Address [address] [address] Assessment No assessment recorded. Plan of Treatment Reminders Order Date Submit Date Provider Last Modified By Organization Details Last Modified Time Details Appointments FOLLOW UP 15 2025 10:30A M Cassie Levin PA-C Not available Not available Not available Lab rf (rheumato id factor), serum 2024 025 [facility]), [facility] [place], [address], 08/29/2025 12:08:17 C reactive protein, QN, serum or plasma 2024 025 [facility], [address] [place] [address], [id number], 08/29/2025 12:08:20 erythrocy te sedimenta tion rate by westergre n method 2024 025 [facility], [address] [place] [address], [id number], 08/29/2025 12:08:19 SAVANA (antinucl ear antibodie s) screen, serum 2024 025 [facility]), [address] [place] [address], [id number], 08/29/2025 12:08:19 ccp (cyclic citrullin ated peptide) iga+igg, serum 2024 025 [facility]), [address] [place], [address], 08/29/2025 12:08:18 CMP, serum or plasma 2024 [facility]), [address] [place], [address], 08/29/2025 12:08:16 CBC w/ auto diff 2024 [facility]), [address] [place], [address], 08/29/2025 12:08:16 TSH, ultra-sen sitive, serum 2024 [facility]), [address] [place], [address], 08/29/2025 12:08:17 vitamin D, 25-hydrox y, total, serum 2024 [facility]), [address] [place], [address], 08/29/2025 12:08:18 lipid panel, serum 2024 [facility]), [address] [place], [address], 08/29/2025 12:08:17 Referral None recorded. Procedures None recorded. Surgeries None recorded. Imaging XR, hand, 3 or more view 2024 [facility] (Radiology), [address] , [place], [address], 08/29/2025 14:05:24 Medication Orders prednison e 20 mg tablet 2024 [facility] [id number], [address] [place], [address], 09/09/2025 05:01:27 Depo-Medr ol 80 mg/mL suspensio n for injection 2024 025 [facility] [id number], [address] [place], [address], 08/28/2025 13:40:49 lidocaine HCl 20 mg/mL (2 %) injection solution [email or web address] [facility] [id number], [address] [place], [address], 08/28/2025 13:40:49 Patient TargetsNo targets recorded. Patient Instructions Encounter Date Encounter Id Patient Instructions Last Modified By Organization Details Last Modified Time 08/28/2025 [id number] high cholesterol : care instructions Not available 08/28/2025 11:37:22 Reason for Referral None Reported. Results Created Date Observation Date Name Description Value Unit Range Abnormal Flag Note LastModifiedBy Organization Detail LastModifiedTime 08/28/2008/29/2025 CBC WITH DIFFE RENTI AL/PL ATELE T WBC 12.1 x10e3 /uL 3.4-10 .8 above high normal Not Available [facility] ([facility]) [address] [place], [address], 08/29/2025 12:08:15 08/28/2008/29/2025 CBC WITH DIFFE RENTI AL/PL ATELE T RBC 4.35 x10e6 /uL 3.77-5 .28 normal Not Available [facility] ([facility]) [address] [place], [address], 08/29/2025 12:08:15 08/28/2008/29/2025 CBC WITH DIFFE RENTI AL/PL ATELE T hemoglobin 13.5 g/dL 11.1-1 5.9 normal Not Available [facility] ([facility]) [address] [place], [address], 08/29/2025 12:08:15 08/28/20 25 08/29/2025 CBC WITH DIFFE RENTI AL/PL ATELE T hematocrit 41.4 % 34.0-4 6.6 normal Not Available [facility] ([facility]) [address] [facility], [place], [address], 08/29/2025 12:08:15 08/28/2008/29/2025 CBC WITH DIFFE RENTI AL/PL ATELE T MCV 95 fL 79-97 normal Not Available [facility] ([facility]) [address] [facility], [place], [address], 08/29/2025 12:08:15 08/28/2008/29/2025 CBC WITH DIFFE RENTI AL/PL ATELE T MCH 31.0 pg 26.6-3 3.0 normal Not Available [facility] ([facility]) [address] [place], [address], 08/29/2025 12:08:15 08/28/2008/29/2025 CBC WITH DIFFE RENTI AL/PL ATELE T MCHC 32.6 g/dL 31.5-3 5.7 normal Not Available [facility] ([facility]) [address] [place], [address], 08/29/2025 12:08:15 08/28/20 25 08/29/2025 CBC WITH DIFFE RENTI AL/PL ATELE T RDW 13.2 % 11.7-1 5.4 Not Available [facility] ([facility]) [address] [place], [address], 08/29/2025 12:08:15 08/28/20 25 08/29/2025 CBC WITH DIFFE RENTI AL/PL ATELE T platelets 452 x10e3 /uL 150-45 0 above high normal Not Available [facility] ([facility]) [address] [place], [address], 08/29/2025 12:08:15 08/28/20 25 08/29/2025 CBC WITH DIFFE RENTI AL/PL ATELE T neutrophils 46 % not estab. normal Not Available [facility] ([facility]) [address] [facility], [place], [address], 08/29/2025 12:08:15 08/28/20 25 08/29/2025 CBC WITH DIFFE RENTI AL/PL ATELE T lymphs 41 % not estab. normal Not Available [facility] ([facility]) [address] [facility], [place], [address], 08/29/2025 12:08:15 08/28/20 25 08/29/2025 CBC WITH DIFFE RENTI AL/PL ATELE T monocytes 8 % not estab. normal Not Available [facility] ([facility]) [address] [facility], [place], [address], 08/29/2025 12:08:15 08/28/20 25 08/29/2025 CBC WITH DIFFE RENTI AL/PL ATELE T eos 4 % not estab. normal Not Available [facility] ([facility]) [address] [facility], [place], [address], 08/29/2025 12:08:15 08/28/20 25 08/29/2025 CBC WITH DIFFE RENTI AL/PL ATELE T basos 1 % not estab. normal Not Available [facility] ([facility]) [address] [facility], [place], [address], 08/29/2025 12:08:15 08/28/20 25 08/29/2025 CBC WITH DIFFE RENTI AL/PL ATELE T immature cells CLINICAL BUSINESS ANALYST Not Available [facility]) [address] [facility], [place], [address], 08/29/2025 12:08:15 08/28/20 25 08/29/2025 CBC WITH DIFFE RENTI AL/PL ATELE T neutrophils (absolute) 5.7 x10e3 /uL 1.4-7. 0 normal Not Available [facility] ([facility]) [address] [facility], [place], [address], 08/29/2025 12:08:15 08/28/20 25 08/29/2025 CBC WITH DIFFE RENTI AL/PL ATELE T lymphs (absolute) 4.9 x10e3 /uL 0.7-3. 1 above high normal Not Available [facility] ([facility]) [address] [facility], [place], [address], 08/29/2025 12:08:15 08/28/20 25 08/29/2025 CBC WITH DIFFE RENTI AL/PL ATELE T monocytes(ab solute) 0.9 x10e3 /uL 0.1-0. 9 normal Not Available [facility] ([facility]) [address] [facility], [place], [address], 08/29/2025 12:08:15 08/28/20 25 08/29/2025 CBC WITH DIFFE RENTI AL/PL ATELE T eos (absolute) 0.4 x10e3 /uL 0.0-0. 4 normal Not Available [facility] ([facility]) [address] [facility], [place], [address], 08/29/2025 12:08:15 08/28/20 25 08/29/2025 CBC WITH DIFFE RENTI AL/PL ATELE T baso (absolute) 0.1 x10e3 /uL 0.0-0. 2 normal Not Available [facility] ([facility]) [address] [facility], [place], [address], 08/29/2025 12:08:15 08/28/20 25 08/29/2025 CBC WITH DIFFE RENTI AL/PL ATELE T immature granulocytes 0 % not estab. Not Available [facility] ([facility]) [address] [facility], [place], [address], 08/29/2025 12:08:15 08/28/20 25 08/29/2025 CBC WITH DIFFE RENTI AL/PL ATELE T immature grans (abs) 0.0 x10e3 /uL 0.0-0. 1 Not Available [facility] ([facility]) [address] [facility], [place], [address], 08/29/2025 12:08:15 08/28/20 25 08/29/2025 CBC WITH DIFFE RENTI AL/PL ATELE T NRBC CLINICAL BUSINESS ANALYST Not Available [facility] ([facility]) [address] [facility], [place], [address], 08/29/2025 12:08:15 08/28/20 25 08/29/2025 CBC WITH DIFFE RENTI AL/PL ATELE T hematology comments: CLINICAL BUSINESS ANALYST Not Available [facility] ([facility]) [address] [facility], [place], [address], 08/29/2025 12:08:15 08/28/20 25 08/29/2025 COMP. METAB OLIC PANEL (14) glucose 83 mg/dL 70-99 normal Not Available [facility] ([facility]) [address] [facility], [place], [address], 08/29/2025 12:08:16 08/28/20 25 08/29/2025 COMP. METAB OLIC PANEL (14) BUN 15 mg/dL 8-27 normal Not Available [facility] ([facility]) [address] [facility], [place], [address], 08/29/2025 12:08:16 08/28/20 25 08/29/2025 COMP. METAB OLIC PANEL (14) creatinine 0.84 mg/dL 0.57-1 .00 normal Not Available [facility] ([facility]) [address] [place], [address], 08/29/2025 12:08:16 08/28/20 25 08/29/2025 COMP. METAB OLIC PANEL (14) eGFR 79 mL/mi n/1.7 3 >59 normal Not Available [facility] ([facility]) [address] [facility] [place], [address], 08/29/2025 12:08:16 08/28/20 25 08/29/2025 COMP. METAB OLIC PANEL (14) BUN/creatini ne ratio 18 12-28 normal Not Available [facility] ([facility]) [address] [facility] [place], [address], 08/29/2025 12:08:16 08/28/20 25 08/29/2025 COMP. METAB OLIC PANEL (14) sodium 140 mmol/ L 134-14 4 normal Not Available [facility] ([facility]) [address] [facility] [place], [address], 08/29/2025 12:08:16 08/28/20 25 08/29/2025 COMP. METAB OLIC PANEL (14) potassium 4.8 mmol/ L 3.5-5. 2 normal Not Available [facility] ([facility]) [address] [facility], [place], [address], 08/29/2025 12:08:16 08/28/20 25 08/29/2025 COMP. METAB OLIC PANEL (14) chloride 105 mmol/ L 96-106 normal Not Available [facility] ([facility]) [address] [facility] [place], [address], 08/29/2025 12:08:16 08/28/20 25 08/29/2025 COMP. METAB OLIC PANEL (14) carbon dioxide, total 21 mmol/ L 20-29 normal Not Available [facility] ([facility]) [address] [facility] [place], [address], 08/29/2025 12:08:16 08/28/20 25 08/29/2025 COMP. METAB OLIC PANEL (14) calcium 9.9 mg/dL 8.7-10 .3 normal Not Available [facility] ([facility]) [address] [facility] [place], [address], 08/29/2025 12:08:16 08/28/20 25 08/29/2025 COMP. METAB OLIC PANEL (14) protein, total 6.2 g/dL 6.0-8. 5 normal Not Available [facility] ([facility]) [address] [facility], [place], [address], 08/29/2025 12:08:16 08/28/20 25 08/29/2025 COMP. METAB OLIC PANEL (14) albumin 4.0 g/dL 3.9-4. 9 normal Not Available [facility] ([facility]) [address] [facility], [place], [address], 08/29/2025 12:08:16 08/28/20 25 08/29/2025 COMP. METAB OLIC PANEL (14) globulin, total 2.2 g/dL 1.5-4. 5 Not Available [facility] ([facility]) [address] [facility], [place], [address], 08/29/2025 12:08:16 08/28/20 25 08/29/2025 COMP. METAB OLIC PANEL (14) bilirubin, total <0.2 mg/dL 0.0-1. 2 Not Available [facility] ([facility]) [address] [facility], [place], [address], 08/29/2025 12:08:16 08/28/20 25 08/29/2025 COMP. METAB OLIC PANEL (14) alkaline phosphatase 73 IU/L 49-135 normal Not Available [facility]) [address] [facility], [place], [address], 08/29/2025 12:08:16 08/28/20 25 08/29/2025 COMP. METAB OLIC PANEL (14) AST (SGOT) 16 IU/L 0-40 normal Not Available [facility] ([facility]) [address] [facility], [place], [address], 08/29/2025 12:08:16 08/28/20 25 08/29/2025 COMP. METAB OLIC PANEL (14) ALT (SGPT) 15 IU/L 0-32 normal Not Available [facility] ([facility]) [address] [place], [address], 08/29/2025 12:08:16 08/28/20 25 08/29/2025 LIPID PANEL cholesterol, total 186 mg/dL 100-19 9 normal Not Available [facility] ([facility]) [address] [place], [address], 08/29/2025 12:08:17 08/28/20 25 08/29/2025 LIPID PANEL triglyceride s 201 mg/dL 0-149 above high normal Not Available [facility] ([facility]) [address] [facility] [place], [address], 08/29/2025 12:08:17 08/28/20 25 08/29/2025 LIPID PANEL HDL cholesterol 51 mg/dL >39 normal Not Available [facility]) [address] [facility] [place], [address], 08/29/2025 12:08:17 08/28/20 25 08/29/2025 LIPID PANEL VLDL cholesterol bhanu 34 mg/dL 5-40 Not Available [facility] ([facility]) [address] [facility] [place], [address], 08/29/2025 12:08:17 08/28/20 25 08/29/2025 LIPID PANEL LDL chol calc ([facility]) 101 mg/dL 0-99 above high normal Not Available [facility] ([facility]) [address] [facility] [place], [address], 08/29/2025 12:08:17 08/28/20 25 08/29/2025 LIPID PANEL LDL calc comment: CLINICAL BUSINESS ANALYST Not Available [facility] ([facility]) [address] [facility] [place], [address], 08/29/2025 12:08:17 08/28/2008/29/2025 TSH TSH 1.660 uIU/m L 0.450- 4.500 normal Not Available [facility] ([facility]) [address] [facility], [place], [address], 08/29/2025 12:08:17 08/28/2008/29/2025 RHEUM ATOID FACTO R (RF) rheumatoid factor (rf) 16.2 IU/mL <14.0 above high normal Not Available [facility] ([facility]) [address] [facility], [place], [address], 08/29/2025 12:08:17 08/28/2008/29/2025 VITAM IN D, 25-HY DROXY vitamin D, 25-hydroxy 39.6 NG/mL 30.0-1 00.0 Vitam in D defic iency has been defin ed by the Insti tute of Medic ine and an Endoc rine Socie ty pract ice guide line as a level of serum 25-OH vitam in D less than 20 ng/mL (1,2) . The Endoc rine Socie ty went on to furth er defin e vitam in D insuf ficie ncy as a level betwe en 21 and 29 ng/mL (2). 1. IOM (Inst itute of Medic ine). 2009. Dieta ry refer ence intak es for calci um and D. Castro medina [place]: The [facility] . 2. Lindy esparza MF, Sienna kapoor [place], Adan off-F enrike i ZHANG, et al. Evalu ation , treat ment, and preve ntion of vitam in D defic iency : an Endoc rine Socie ty clini bhanu pract ice guide line. JCEM. 2010; 96(7) :1911 -30. Not Available [facility] ([facility]) [address] [facility], [place], [address], 08/29/2025 12:08:18 08/28/2008/29/2025 ANTI- CCP AB, IGG/I GA anti-ccp Ab, IgG/IgA 8 units 0-19 Negat tony <20 Weak posit tony 20 - 39 Moder ate posit tony 40 - 59 Stron g posit tony >59 Not Available [facility] ([facility]) [address] [facility], [place], [address], 08/29/2025 12:08:18 08/28/20 25 08/29/2025 ANTIN UCLEA R AB MULTI PLEX RFX 9 SAVANA direct Negati ve negati ve Not Available [facility] ([facility]) [address] [facility], [place], [address], 08/29/2025 12:08:19 08/28/2008/29/2025 SEDIM ENTAT ION RATE- WESTE RGREN sedimentatio n rate-westerg rebekah 10 mm/HR 0-40 normal Not Available [facility] ([facility]) [address] [facility], [place], [address], 08/29/2025 12:08:19 08/28/20 25 08/29/2025 C-RAVINDER CTIVE PROTE IN, QUANT C-reactive protein, quant 2 mg/L 0-10 normal Not Available [facility] ([facility]) [address] [facility], [place], [address], 08/29/2025 12:08:20 08/29/20 25 04/25/2024 MAMMO , scree shahid, bilat eral No observ ation record ed. [email or web address] Not Available 09/01 14:31:21 08/29/2008/28/2025 XR, hand, 3 or more view No observ ation record ed. (Radiology) [address], [place], [address], 08/29/2025 14:44:39 Result Notes None recorded. Problems Name Problem SNOMED Code Status Onset Date Resolution Date Notes Provider Name and Address Organization Details Recorded Time Pain of multiple joints 37002720 Active 2023 CARLOS Moralez [address] [place] [address], [phone], [employer] 4 11:57:58 Rheumatoid factor detected 658030741 Active 2023 CARLOS Moralez [address] [place] [address], [address], [employer] 4 11:58:18 Depressive disorder 46906802 Active 2024 CARLOS Moralez [address] [place] [address], [address] 8, [employer] 5 12:07:04 Hyperlipide noble 31821237 Active 2024 CARLOS Moralez [address] [place] [address], [address] 8, [employer] 5 12:07:32 Allergic rhinitis 31370254 Active 2024 CARLOS Moralez [address] [place] [address], [address] 8, [employer] 5 12:07:56 Essential hypertensio n 68943528 Active 2024 CARLOS Moralez [address] [place] [address], [address] 8, [employer] 5 12:08:12 Pain of bilateral hands 5555514976526 9109 Active 2024 CARLOS Moralez [address] [place] [address], [address], [employer] 5 11:02:35 Pain of right shoulder joint 5580355499643 9100 Active 2024 CARLOS Moralez [address] [place] [address], [address] 8, [employer] 5 13:40:49 Problem Notes None recorded. Procedures Surgical History Date Name Laterality Status Provider Name and Address Organization Details Recorded Time 08/28/20 25 Joint Injection completed CARLOS Moralez [address] [place] [address], [phone], [employer] 08/28/2025 13:39:24 04/25/20 24 Most Recent Mammogram completed [facility]. 08/29/2025 09:44:33 12/16/19 22 Date of Last Pap Smear completed [facility]. 08/29/2025 09:45:01 Breast Biopsy completed [facility]. 10/03/2024 09:42:42 Hysterectomy completed [facility]. 10/03/2024 09:42:42 Orthopedic Surgery completed [facility]. 10/03/2024 09:45:37 Total Hysterectomy completed [facility]. 10/03/2024 09:42:42 Imaging Results None recorded. Procedure Notes None recorded. Medical Equipment None Reported. Allergies No known drug allergies Medications Name Sig Start Date Stop Date Status Note LastModified by Organization Details LastModified Time bupropion HCl SR 150 mg tablet,12 hr sustained-r elease Take 1 tablet twice a day by oral route for 90 days. 2024 active Not Available Not Available Not Avai lable pravastatin 40 mg tablet Take 1 tablet every day by oral route at bedtime for 90 days. 2024 active Not Available Not Available Not Avai lable fluconazole 150 mg tablet 10/02 completed Not Available Not Available Not Available prednisone 20 mg tablet Take 1 tablet twice a day by oral route as directed for 5 days, for inflammat ion. 09/09 completed Not Available Not Available Not Available sulfasalazi ne 500 mg tablet,lorena yed release Take 1 tablet twice a day by oral route as directed for 30 days, for inflammat ion. 08/28 completed Not Available Not Available Not Available tramadol 50 mg tablet active Not Available Not Available No t Available Depo-Medrol 80 mg/mL suspension for injection Take 1 mL every day by injection route as directed for 1 day. 2024 active Not Available Not Available Not Avai lable Celebrex 100 mg capsule Take 1 capsule twice a day by oral route. active Not Available Not Available No t Available lansoprazol e 30 mg capsule,del ayed release active Not Available Not Available Not Available buspirone 7.5 mg tablet 10/02 completed Not Available Not Available Not Available montelukast 10 mg tablet Take 1 tablet every day by oral route for 90 days. 2024 active Not Available Not Available Not Avai lable lidocaine HCl 20 mg/mL (2 %) injection solution Take 1 mL by injection route. 2024 active Not Available Not Available Not Avai lable mirtazapine 15 mg tablet 10/02 completed Not Available Not Available Not Available azelastine 137 mcg (0.1 %) nasal spray active Not Available Not Available Not Available albuterol sulfate HFA 90 mcg/actuati on aerosol inhaler active Not Available Not Available Not Available ketorolac 60 mg/2 mL intramuscul ar solution Inject 2 mL every day by intramusc ular route as directed for 1 day. 08/28 completed Not Available Not Available Not Available fluticasone propionate 50 mcg/actuati on nasal spray,suspe nsion active Not Available Not Available Not Available doxycycline hyclate 100 mg tablet 10/02 completed Not Available Not Available Not Available amoxicillin 875 mg-potassiu m clavulanate 125 mg tablet 10/02 completed Not Available Not Available Not Available Premarin 0.625 mg tablet active Not Available Not Available Not Available calcium active Not Available Not Avail able Not Available Vitamin D active Not Available Not Aliza ilable Not Available nebivolol 5 mg tablet Take 1 tablet every day by oral route for 90 days. 2024 active Not Available Not Available Not Avai lable Vitals Date Recorded Body height Body mass index (BMI) Body weight Heart rate Oxygen saturation Oxygen saturation in Arterial blood by Pulse oximetry Body temperature Systolic And Diastolic Provider Name and Address Organization Details Last Updated DateTime 5 165.1 cm 26.4 kg/m2 30226.0 3 g 64 /min 95 % 95 % 98.2 [degF] 122/78 mm[Hg] Grisel [facility]. 5 10:38:47 Social History Question Answer Notes LastModified by Organizat ion Details LastModified Time Tobacco Smoking Status Former Smoker Grisel pérez, [facility] [employer] 10/03/2024 09:42:41 Do You Have An Advance Directive? No Information not available 10/03/2024 Is Your Home Air Conditioned? Yes Information not available 10/03/2024 Do You Wear A Helmet When Biking? Yes Information not available 10/03/2024 Are You Blind Or Do You Have Difficulty Seeing? No Information not available 10/03/2024 What Is Your Level Of Caffeine Consumption? Moderate Information not available 10/03/2024 Are You A Caregiver? Yes Information not available 08/28/2025 What Type Of Park Warden Do You Use? None Information not available 10/03/2024 Have You Been To An Area Known To Be High Risk For COVID-19? No Information not available 10/03/2024 Are You Deaf Or Do You Have Serious Difficulty Hearing? No Information not available 10/03/2024 What Type Of Diet Are You Following? REGULAR Information not available 10/03/2024 What Is The Highest Grade Or Level Of School You Have Completed Or The Highest Degree You Have Received? [id number] Information not available 10/03/2024 Who Is Your Employer? [employer] Information not available 10/03/2024 How Many Days Of Moderate To Strenuous Exercise, Like A Brisk Walk, Did You Do In The Last 7 Days? 2 Information not available 10/03/2024 Have There Been Any Changes To Your Family Or Social Situation? No Information not available 10/03/2024 When Did You Quit Smoking? 6-10yearssincelastc igarette Information not available 10/03/2024 Are There Any Guns Present In Your Home? No Information not available 10/03/2024 Which Of Your Hands Is Dominant? Right Information not available 10/03/2024 What Is Your Home Situation? Father Information not available 10/03/2024 Where Do You Live? SingleLevelHouse Information not available 08/28/2025 Do You Have A Medical Power Of Shuttle Inspector? No Information not available 10/03/2024 What Was The Date Of Your Most Recent Tobacco Screening? 08/28/2025 Information not available 08/28/2025 Are There Any Occupational Health Risks Where You Work? NO Information not available 10/03/2024 Do You Have Any Pets? No Information not available 10/03/2024 What Is Your Relationship Status? Information not available 10/03/2024 Have You Repeated Any Grades? No Information not available 10/03/2024 Do You Wear A Seatbelt When Driving Or As A Passenger? Yes Information not available 08/28/2025 Do You Use Your Seat Belt Or Car Seat Routinely? Yes Information not available 10/03/2024 Are You Sexually Active? No Information not available 10/03/2024 Do You Have Any Siblings? 1 Information not available 10/03/2024 Do You Have Smoke And Carbon Monoxide Detectors In Your Home? Yes Information not available 10/03/2024 At What Age Did You Start Smoking Tobacco? 14 Information not available 10/03/2024 Are You Passively Exposed To Smoke? No Information not available 10/03/2024 Are There Any Smokers In Your House? No Information not available 10/03/2024 How Much Tobacco Do You Smoke? No Information not available 10/03/2024 Do You Participate In Social Media? Yes Information not available 10/03/2024 What Types Of Sporting Activities Do You Participate In? NONE Information not available 10/03/2024 Do You Use Sunscreen Routinely? No Information not available 10/03/2024 Has Tobacco Cessation Counseling Been Provided? No Information not available 10/03/2024 How Many Years Have You Smoked Tobacco? 30 Information not available 10/03/2024 Have You Recently Traveled Abroad? No Information not available 10/03/2024 Do You Have Difficulty Walking Or Climbing Stairs? No Information not available 10/03/2024 Are You Currently In School? No Information not available 10/03/2024 Do You Feel Safe In Your Home? Yes Information not available 08/28/2025 Do You Have Any Dietary Restrictions? No Information not available 10/03/2024 Sex: Female Functional Status Question Answer Note LastModified by Organizat ion Details LastModified Time Do you use any illicit or recreational drugs? No Information not available 10/03/2024 Do you or have you ever used any other forms of tobacco or nicotine? No Information not available 10/03/2024 What is your level of alcohol consumption? None Information not available 10/03/2024 Are you currently employed? Yes Information not available 10/03/2024 Do you have transportation difficulties? No Information not available 10/03/2024 Are you able to walk independently without assistance or assistive devices? YESWOREST Information not available 10/03/2024 Do you have difficulty doing errands alone? No Information not available 10/03/2024 Are you able to care for yourself independently? Yes Information not available 10/03/2024 Do you have difficulty dressing, bathing, grooming, or toileting? No Information not available 10/03/2024 What is your exercise level? Occasional Information not available 10/03/2024 Mental Status Question Answer Note LastModified by Organizat ion Details LastModified Time Do you feel stressed (tense, restless, nervous, or anxious, or unable to sleep at night)? [id number] Information not available 10/03/2024 Do you have difficulty concentrating, remembering or making decisions? No Information no t available 10/03/2024 Are you or have you been involved with bullying? No Information not available 10/03/2024 Family History Relationship Description Onset Age of this Age Resolved Age Notes LastModified by Organization Details LastModified Time Paternal Grandmother Diabetes mellitus Not available 2023 09:42:39 Mother Alzheimer's disease Not available 2023 09:42:39 Mother Arthritis Not available 10/03/2024 09:42:39 Mother Hypertensive disorder Not available 2023 09:42:39 Brother Hypertensive disorder Not available 2023 09:42:39 Brother Heart disease Not available 2023 09:42:39 Father Hypercholest erolemia Not available 2023 09:42:39 Father Asthma Not available 09:42:39 Father Hypertensive disorder Not available 2023 09:42:39 Father Heart disease Not available 2023 09:42:40 Father Diabetes mellitus Not available 2023 09:42:40 Medical History Condition Response Coronary Artery Disease N Other N Gout N Kidney Stones N Blood Diseases N Hyperthyroidism N Blood Transfusion N Breast Cancer N Emergency room visit since last appointm ent. N COPD N Depression N Dermatologic Disorders N Hypothyroidism N Lung Disease N Developmental or Behavioral Disorders N Defects or Inherited Disease N Breast Problem N Difficulty Swallowing N Anesthesia Complications N History of STI N Meniere's disease N Anxiety Disorder N Muscle, Joint, or Bone Problems N Autoimmune disease N Vision or Eye Problems N Arthritis Y Polyps N Infertility N Mental Disorder N Congenital Anomalies N Acid Reflux (GERD) Y Cancer N Stroke N Neurologic/Epilepsy N Endometriosis N Bladder or Kidney Problems N High Cholesterol Y Liver Disease N Organ Transplant N Psychiatric/Mental Health Condition N Fibromyalgia N Dialysis N Schizophrenia N Headaches N Kidney Disease N Allergies/Hayfever N Heart Problems N Ear or Hearing Problems N Hospitalizations N Learning Disorder N Artificial Joints N Thyroid Problems N GI Problems N Acne N ADD/ADHD N Eating Disorder N Anemia N Constipation N Mental Illness N Ovarian Cancer N Diabetes N Bedwetting N Hepatitis/Liver Disease N Tuberculosis N Eczema N Diverticulitis N Abuse/Domestic Violence N Asthma Y Trauma/Violence N Substance Abuse N Reflux/GERD N Depression/ depression N Hepatitis N Heart Disease N Pulmonary Embolism N Tourette Syndrome N Chronic Ear Infections N Pre-Eclampsia N Hypertension Y Chicken Pox N Autism Spectrum Disorder (ASD) N Osteoporosis N Thrombophilias N Gynecological History Statement/Question Response Menses Monthly N Abnormal Pap N Date of Last Pap Smear 12/16/2021 Current Control Method Hysterectom y Most Recent Mammogram 04/25/2024 Obstetrics History GPAL:G 1 P 1 0 0 1 Type Value Full Term 1 Living 1 Total 1 Immunizations Vaccine Type Date Status Note Provider Nam e and Address Organization Details Recorded Time Tdap 2 completed CARLOS Moralez [address] [place] [address], [phone], [employer] 10/03/2024 10:17:45 pneumococcal polysaccharide PPV23 9 completed CARLOS Moralez [address] [place] [address], [phone], [employer] 10/03/2024 10:18:06 zoster live 4 completed CARLOS Moralez [address] [place] [address], [phone], [employer] 10/03/2024 10:18:35 Influenza, split virus, quadrivalent, PF 0 completed Not Available [facility] 08/28/2025 10:11:20 COVID-19 vaccine, vector-nr, rS-Ad26, PF, 0.5 mL 1 completed Not Available [facility] 08/28/2025 10:11:20 COVID-19, mRNA, LNP-S, PF, 30 mcg/0.3 mL dose 1 completed Not Available [facility] 08/28/2025 10:11:20 Influenza, split virus, quadrivalent, PF 3 completed Not Available [facility] 08/28/2025 10:11:20 Past Encounters Encounter ID Performer Location Encounter Start Date Encounter Closed Date Diagnosis/Indication Diagnosis SNOMED-CT Code Diagnosis ICD10 Code Diagnosis IMO Codes Diagnosis Note [id number] CARLOS Moralez [address] [address] 08/28/2025 10:10:42 08/28/2025 11:20:59 Pain of bilateral hands [id number] M79.641 M79.642 [id number] Pain of mu ltiple joints 02669828 M25.50 176989 Hyperlipidemia 16678729 E78.5 [id number] Pain of ri ght shoulder joint [id number] 2771040 M25.511 [id number] Try intraartic ular injection to see if any improvemen t noted Health Concerns Section Related Observation LastModified by Organization Detai ls LastModified Time None Recorded Concern Status LastModified by Organization Details LastModified Time None Recorded Payers Encounter Date Sequence Insurance Name Policy Number Policy Mcnair Covered Member ID Mcnair Member ID Guarantor Name 08/28/2025 1 [employer] [id number] Ifrah Craig [id number] Ifrah Craig Notes Date Note Type Note Provider Name and Address Organization Details Recorded Time 08/28/2025 text/html ROS as noted in the HPI Patient presents for followup.History of polyarthralgia. She has positive RF in the past. Saw rheumatology a few yeasr ago. They didn't really do much. Has pain, stiffness, swelling in her hands especially. Has severe right shoulder pain as well. Moved to [place] - saw a PCP there. Tried Celebrex but it doesn't really help. Sulfasalazine didn't help. Mobic does help but hurts her stomach. CARLOS Moralez [address] [place] [address], [place], [phone], [facility] [email or web address] 08/28/2025 13:42:27 OBGyn Episode No OBEpisode recorded.
--- OUTSIDE RECORDS SUMMARY | 2025-09-17 12:45 | XMS_ITS | Clinical Summary ---
Author Organization [facility] Address [address], [address] [place] [address] Care Team Providers Care Application Support Consultant Name Role Phone Anusha Burris MD Primary Care Provider Unava ilable Active Problems Problem Noted Date Diagnosed Date Osteoarthrosis 09/20/2019 Pain in joint 09/20/2019 Low back pain 09/20/2019 Hypertrophy of inferior nasal turbinate 06/21/20 18 Diverticulosis 07/14/2014 Overview (02/04/2022): Had colonoscopy 07/14/14 Hemorrhoids 07/14/2014 Overview (02/04/2022): Had colonoscopy 07/14/14 Vitamin D deficiency 11/05/2013 Depression 10/03/2013 Elevated platelet count 07/03/2013 Elevated WBCs 07/03/2013 Postmenopausal HRT (hormone replacement therapy) 04/30/2013 Bee sting-induced anaphylaxis 04/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 GERD (gastroesophageal reflux disease) 3 Asthma 10/03/2012 Chronic neck pain 10/03/2012 Chronic foot pain 08/12/2011 AR (allergic rhinitis) 08/09/2011 Hyperlipemia 01/17/2011 IBS (irritable bowel syndrome) 01/17/2011 Immunizations Immunization Administration Dates Next Due Influenza Virus Vaccine 09/21/2018,08/20/2009 Influenza, FLUARIX, FLULAVAL , FLUZONE (age 6 mo+) and AFLURIA, (age 3 y+), Quadv PF, 0.5mL 08/20/2019,09/18/2018 Pneumococcal, PPSV23, PNEUMO VAX 23, (age 2y+), SC/IM, 0.5mL 01/11/2019 Zoster Live (Zostavax) 06/13/2018 Zoster Recombinant (Shingrix) 06/13/2018 Social History Tobacco Use Types Packs/Day Years Used Date Smoking Tobacco: Never Assessed Comments Unknown Sex and Gender Information Value Date Recorded Sex Assigned at Not on file Legal Sex Female 2:15 PM EST Gender Identity Female 01/18/2022 2:15 PM EST Sexual Orientation Don't know 01/18/2022 2: 15 PM EST Plan of Treatment Not on file Care Teams Application Support Consultant Relationship Specialty Start Date End Date Anusha Burris MD PCP - General 05/04/15
--- OUTSIDE RECORDS SUMMARY | 2025-09-17 12:46 | XMS_ITS | Data Portability ---
Author Organization [employer] [place] - [place] Address [address] [place] [address] Assessment No assessment recorded. Plan of Treatment Reminders Order Date Submit Date Provider Last Modified By Organization Details Last Modified Time Details Appointments FOLLOW UP 15 2025 10:30A M Cassie Levin PA-C Not available Not available Not available Lab rf (rheumato id factor), serum 2024 025 [facility]), [address] [place] [address], [address], 08/29/2025 12:08:17 C reactive protein, QN, serum or plasma 2024 025 [facility]), [address] [place] [address], [address], 08/29/2025 12:08:20 erythrocy te sedimenta tion rate by westergre n method 2024 025 [facility]), [address] [place] [address], [address], 08/29/2025 12:08:19 SAVANA (antinucl ear antibodie s) screen, serum 2024 025 [facility]), [address] [place] [address], [address], 08/29/2025 12:08:19 ccp (cyclic citrullin ated peptide) iga+igg, serum 2024 025 [facility] ([place]), [address] [place], [address], 08/29/2025 12:08:18 CMP, serum or plasma 2024 025 [facility]), [address] [place], [address], 08/29/2025 12:08:16 CBC w/ auto diff 2024 025 [facility]), [address] [place], [address], 08/29/2025 12:08:16 TSH, ultra-sen sitive, serum 2024 025 [facility]), [address] [place], [address], 08/29/2025 12:08:17 vitamin D, 25-hydrox y, total, serum 2024 025 [facility]), [address] [place], [address], 08/29/2025 12:08:18 lipid panel, serum 2024 025 [facility]), [address] [place], [address], 08/29/2025 12:08:17 SAVANA + rf (antinucl ear antibodie s + rheumatoi d factor), quantitat tony, serum 2023 024 [facility]), [address] [place], [address], 10/04/2024 14:12:31 ESR (erythroc yte sedimenta tion rate), blood 2023 024 [facility]), [address] [place], [address], 10/04/2024 14:12:35 C reactive protein, QN, serum or plasma 2023 024 [facility] [address] [place], [address], 10/04/2024 14:12:35 ccp (cyclic citrullin ated peptide) iga+igg, serum 2023 024 [facility] ([place]), [address] [place], [address], 10/04/2024 14:12:34 lipid panel, serum 2023 024 [facility] [address] [place], [address], 10/04/2024 14:12:30 TSH, ultra-sen sitive, serum 2023 024 [facility] ([place]), [address] [place], [address], 10/04/2024 14:12:32 vitamin D, 25-hydrox y, total, serum 2023 024 [facility] ([place] [address] [place], [address], 10/04/2024 14:12:33 CBC w/ auto diff 2023 [facility] [address] [place], [address], 10/04/2024 14:12:29 CMP, serum or plasma 2023 024 [facility] ([place] [address] [place], [address], 10/04/2024 14:12:29 HIV 1 + 2, meaningfu l use set 2023 024 [facility] ([place]), [address] [place], [address], 10/04/2024 14:12:33 Hepatitis C IgG Ab, qual, serum 2023 [facility] ([place]), [address] [facility], [place], [address], 10/04/2024 14:12:31 Referral None recorded. Procedures None recorded. Surgeries None recorded. Imaging XR, hand, 3 or more view 2024 [facility] (Radiology), [address] , [place], [address], 08/29/2025 14:05:24 Medication Orders prednison e 20 mg tablet 2024 [facility] [id number], [address] [place], [address], 09/09/2025 05:01:27 Depo-Medr ol 80 mg/mL suspensio n for injection [address] [facility] [id number], [address] [place], [address], 08/28/2025 13:40:49 lidocaine HCl 20 mg/mL (2 %) injection solution [address] [facility] [id number], [address] [place], [address], 08/28/2025 13:40:49 ketorolac 60 mg/2 mL intramusc ular solution [address] [facility] [id number], [address] [place], [address], 08/28/2025 10:36:41 Depo-Medr ol 80 mg/mL suspensio n for injection [address] [facility] [id number], [address] [place], [address], 08/28/2025 10:36:12 prednison e 20 mg tablet 2023 025 [facility] [id number], [address] [place], [address], 09/09/2025 05:01:27 sulfasala zine 500 mg tablet,de layed release 2023 025 [facility] [id number], [address] [place], [address], 08/28/2025 10:37:22 Patient TargetsNo targets recorded. Patient Instructions Encounter Date Encounter Id Patient Instructions Last Modified By Organization Details Last Modified Time 10/03/2024 [id number] learning about healthy weight [id number] Not available 10/03/2024 13:06:18 08/28/2025 [id number] high cholesterol : care instructions [email or web address] Not available 08/28/2025 11:37:22 Reason for Referral None Reported. Results Created Date Observation Date Name Description Value Unit Range Abnormal Flag Note LastModifiedBy Organization Detail LastModifiedTime 10/03/2010/04/2024 CBC WITH DIFFE RENTI AL/PL ATELE T WBC 13.8 x10e3 /uL 3.4-10 .8 above high normal Not Available [facility] ([facility]) [address] [place], [address], 10/04/2024 14:12:29 10/03/20 24 10/04/2024 CBC WITH DIFFE RENTI AL/PL ATELE T RBC 4.52 x10e6 /uL 3.77-5 .28 normal Not Available [facility] ([facility]) [address] [place], [address], 10/04/2024 14:12:29 10/03/20 24 10/04/2024 CBC WITH DIFFE RENTI AL/PL ATELE T hemoglobin 13.7 g/dL 11.1-1 5.9 normal Not Available [facility] ([facility]) [address] [place], [address], 10/04/2024 14:12:29 10/03/20 24 10/04/2024 CBC WITH DIFFE RENTI AL/PL ATELE T hematocrit 42.4 % 34.0-4 6.6 normal Not Available [facility] ([facility]) [address] [place], [address], 10/04/2024 14:12:29 10/03/20 24 10/04/2024 CBC WITH DIFFE RENTI AL/PL ATELE T MCV 94 fL 79-97 normal Not Available [facility] ([facility]) [address] [place], [address], 10/04/2024 14:12:29 10/03/20 24 10/04/2024 CBC WITH DIFFE RENTI AL/PL ATELE T MCH 30.3 pg 26.6-3 3.0 normal Not Available [facility] ([facility]) [address] [place], [address], 10/04/2024 14:12:29 10/03/20 24 10/04/2024 CBC WITH DIFFE RENTI AL/PL ATELE T MCHC 32.3 g/dL 31.5-3 5.7 normal Not Available [facility] ([facility]) [address] [place], [address], 10/04/2024 14:12:29 10/03/20 24 10/04/2024 CBC WITH DIFFE RENTI AL/PL ATELE T RDW 13.0 % 11.7-1 5.4 Not Available [facility] ([facility]) [address] [place], [address], 10/04/2024 14:12:29 10/03/20 24 10/04/2024 CBC WITH DIFFE RENTI AL/PL ATELE T platelets 483 x10e3 /uL 150-45 0 above high normal Not Available [facility] ([facility]) [address] [place], [address], 10/04/2024 14:12:29 10/03/20 24 10/04/2024 CBC WITH DIFFE RENTI AL/PL ATELE T neutrophils 50 % not estab. normal Not Available [facility] ([facility]) [address], [place], [place], [address], 10/04/2024 14:12:29 10/03/20 24 10/04/2024 CBC WITH DIFFE RENTI AL/PL ATELE T lymphs 39 % not estab. normal Not Available [facility] ([facility]) [address], [place], [place], [address], 10/04/2024 14:12:29 10/03/20 24 10/04/2024 CBC WITH DIFFE RENTI AL/PL ATELE T monocytes 7 % not estab. normal Not Available [facility] ([facility]) [address], [place], [place], [address], 10/04/2024 14:12:29 10/03/20 24 10/04/2024 CBC WITH DIFFE RENTI AL/PL ATELE T eos 3 % not estab. normal Not Available [facility] ([facility]) [address], [place], [place], [address], 10/04/2024 14:12:29 10/03/20 24 10/04/2024 CBC WITH DIFFE RENTI AL/PL ATELE T basos 1 % not estab. normal Not Available [facility] ([facility]) [address], [place], [place], [address], 10/04/2024 14:12:29 10/03/20 24 10/04/2024 CBC WITH DIFFE RENTI AL/PL ATELE T immature cells WARRANT SERVER Not Available [facility] ([facility]) [address], [place], [place], [address], 10/04/2024 14:12:29 10/03/20 24 10/04/2024 CBC WITH DIFFE RENTI AL/PL ATELE T neutrophils (absolute) 6.9 x10e3 /uL 1.4-7. 0 normal Not Available [facility] ([facility]) [address], [place], [place], [address], 10/04/2024 14:12:29 10/03/20 24 10/04/2024 CBC WITH DIFFE RENTI AL/PL ATELE T lymphs (absolute) 5.4 x10e3 /uL 0.7-3. 1 above high normal Not Available [facility] ([facility]) [address], [place], [place], [address], 10/04/2024 14:12:29 10/03/20 24 10/04/2024 CBC WITH DIFFE RENTI AL/PL ATELE T monocytes(ab solute) 1.0 x10e3 /uL 0.1-0. 9 above high normal Not Available [facility] ([facility]) [address], [place], [place], [address], 10/04/2024 14:12:29 10/03/20 24 10/04/2024 CBC WITH DIFFE RENTI AL/PL ATELE T eos (absolute) 0.4 x10e3 /uL 0.0-0. 4 normal Not Available [facility] ([facility]) [address], [place], [place], [address], 10/04/2024 14:12:29 10/03/20 24 10/04/2024 CBC WITH DIFFE RENTI AL/PL ATELE T baso (absolute) 0.1 x10e3 /uL 0.0-0. 2 normal Not Available [facility] ([facility]) [address], [place], [place], [address], 10/04/2024 14:12:29 10/03/20 24 10/04/2024 CBC WITH DIFFE RENTI AL/PL ATELE T immature granulocytes 0 % not estab. Not Available [facility] ([facility]) [address], [place], [place], [address], 10/04/2024 14:12:29 10/03/20 24 10/04/2024 CBC WITH DIFFE RENTI AL/PL ATELE T immature grans (abs) 0.0 x10e3 /uL 0.0-0. 1 Not Available [facility] ([facility]) [address], [place], [place], [address], 10/04/2024 14:12:29 10/03/20 24 10/04/2024 CBC WITH DIFFE RENTI AL/PL ATELE T NRBC WARRANT SERVER Not Available [facility] ([facility]) [address], [place], [place], [address], 10/04/2024 14:12:29 10/03/20 24 10/04/2024 CBC WITH DIFFE RENTI AL/PL ATELE T hematology comments: WARRANT SERVER Not Available [facility] ([facility]) [address], [place], [place], [address], 10/04/2024 14:12:29 10/03/20 24 10/04/2024 COMP. METAB OLIC PANEL (14) glucose 82 mg/dL 70-99 normal Not Available [facility] ([facility]) [address], [place], [place], [address], 10/04/2024 14:12:29 10/03/20 24 10/04/2024 COMP. METAB OLIC PANEL (14) BUN 14 mg/dL 8-27 normal Not Available [facility] ([facility]) [address], [place], [place], [address], 10/04/2024 14:12:29 10/03/20 24 10/04/2024 COMP. METAB OLIC PANEL (14) creatinine 0.68 mg/dL 0.57-1 .00 normal Not Available [facility] ([facility]) [address], [place], [place], [address], 10/04/2024 14:12:29 10/03/20 24 10/04/2024 COMP. METAB OLIC PANEL (14) eGFR 99 mL/mi n/1.7 3 >59 normal Not Available [facility] ([facility]) [address] [place], [address], 10/04/2024 14:12:29 10/03/20 24 10/04/2024 COMP. METAB OLIC PANEL (14) BUN/creatini ne ratio 21 12-28 normal Not Available [facility] ([facility]) [address] [place], [address], 10/04/2024 14:12:29 10/03/20 24 10/04/2024 COMP. METAB OLIC PANEL (14) sodium 142 mmol/ L 134-14 4 normal Not Available [facility] ([facility]) [address] [place], [address], 10/04/2024 14:12:29 10/03/20 24 10/04/2024 COMP. METAB OLIC PANEL (14) potassium 4.6 mmol/ L 3.5-5. 2 normal Not Available [facility] ([facility]) [address] [place], [address], 10/04/2024 14:12:29 10/03/20 24 10/04/2024 COMP. METAB OLIC PANEL (14) chloride 105 mmol/ L 96-106 normal Not Available [facility] ([facility]) [address], [place], [address], 10/04/2024 14:12:29 10/03/20 24 10/04/2024 COMP. METAB OLIC PANEL (14) carbon dioxide, total 23 mmol/ L 20-29 normal Not Available [facility] ([facility]) [address], [place], [address], 10/04/2024 14:12:29 10/03/20 24 10/04/2024 COMP. METAB OLIC PANEL (14) calcium 9.9 mg/dL 8.7-10 .3 normal Not Available [facility] ([facility]) [address], [place], [place], [address], 10/04/2024 14:12:29 10/03/20 24 10/04/2024 COMP. METAB OLIC PANEL (14) protein, total 6.4 g/dL 6.0-8. 5 normal Not Available [facility] ([facility]) [address], [place], [address], 10/04/2024 14:12:29 10/03/20 24 10/04/2024 COMP. METAB OLIC PANEL (14) albumin 4.2 g/dL 3.9-4. 9 normal Not Available [facility] ([facility]) [address], [place], [place], [address], 10/04/2024 14:12:29 10/03/20 24 10/04/2024 COMP. METAB OLIC PANEL (14) globulin, total 2.2 g/dL 1.5-4. 5 Not Available [facility] ([facility]) [address], [place], [place], [address], 10/04/2024 14:12:29 10/03/20 24 10/04/2024 COMP. METAB OLIC PANEL (14) bilirubin, total <0.2 mg/dL 0.0-1. 2 Not Available [facility] ([facility]) [address], [place], [place], [address], 10/04/2024 14:12:29 10/03/20 24 10/04/2024 COMP. METAB OLIC PANEL (14) alkaline phosphatase 80 IU/L 44-121 normal Not Available [facility] ([facility]) [address], [place], [place], [address], 10/04/2024 14:12:29 10/03/20 24 10/04/2024 COMP. METAB OLIC PANEL (14) AST (SGOT) 14 IU/L 0-40 normal Not Available [facility] ([facility]) [address], [place], [place], [address], 10/04/2024 14:12:29 10/03/20 24 10/04/2024 COMP. METAB OLIC PANEL (14) ALT (SGPT) 13 IU/L 0-32 normal Not Available [facility] ([facility]) [address], [place], [place], [address], 10/04/2024 14:12:29 10/03/20 24 10/04/2024 LIPID PANEL cholesterol, total 189 mg/dL 100-19 9 normal Not Available [facility] ([facility]) [address], [place], [address], 10/04/2024 14:12:30 10/03/20 24 10/04/2024 LIPID PANEL triglyceride s 287 mg/dL 0-149 above high normal Not Available [facility] ([facility]) [address] [place], [address], 10/04/2024 14:12:30 10/03/20 24 10/04/2024 LIPID PANEL HDL cholesterol 50 mg/dL >39 normal Not Available [facility] ([facility]) [address] [place], [address], 10/04/2024 14:12:30 10/03/20 24 10/04/2024 LIPID PANEL VLDL cholesterol bhanu 48 mg/dL 5-40 above high normal Not Available [facility] ([facility]) [address] [place], [address], 10/04/2024 14:12:30 10/03/20 24 10/04/2024 LIPID PANEL LDL chol calc ([facility]) 91 mg/dL 0-99 Not Available [facility] ([facility]) [address] [place], [address], 10/04/2024 14:12:30 10/03/20 24 10/04/2024 LIPID PANEL LDL calc comment: WARRANT SERVER Not Available [facility] ([facility]) [address] [place], [address], 10/04/2024 14:12:30 10/03/20 24 10/04/2024 SAVANA+R F QN SAVANA direct Negati ve negati ve Not Available [facility] ([facility]) [address], [place], [place], [address], 10/04/2024 14:12:31 10/03/20 24 10/04/2024 SAVANA+R F QN rheumatoid factor (rf) 16.1 IU/mL <14.0 above high normal Not Available [facility] ([facility]) [address], [place], [place], [address], 10/04/2024 14:12:31 10/03/20 24 10/04/2024 HCV ANTIB LEEANN CASCA DE(PC R/GEN O) HCV Ab Non Reacti ve non reacti ve Not Available [facility] ([facility]) [address], [place], [place], [address], 10/04/2024 14:12:31 10/03/20 24 10/04/2024 HCV ANTIB LEEANN CASCA DE(PC R/GEN O) interpretati on: Commen t Not infec minal with HCV unles s early or acute infec tion is suspe cted (whic h may be delay ed in an immun ocomp romis ed indiv idual ), or other evide nce exist s to indic ate HCV infec tion. Not Available [facility] ([facility]) [address], [place], [place], [address], 10/04/2024 14:12:31 10/03/20 24 10/04/2024 TSH TSH 1.910 uIU/m L 0.450- 4.500 normal Not Available [facility] ([facility]) [address], [place], [place], [address], 10/04/2024 14:12:32 10/03/20 24 10/04/2024 VITAM IN D, 25-HY DROXY vitamin D, 25-hydroxy 41.5 NG/mL 30.0-1 00.0 Vitam in D defic [...] 1. IOM (Inst itute of Medic ine). 2010. Dieta ry refer ence intak es for calci um and D. Castro medina [place]: [facility] . 2. Lindy esparza [place], Sienna kapoor [place], Adan off-F enrike i ZHANG, et al. Evalu ation , treat ment, and preve ntion of vitam in D defic iency : an Endoc rine Socie ty clini bhanu pract ice guide line. JCEM. 2010; 96(7) :1911 -30. Not Available [facility] ([facility]) [address], [place], [place], [address], 10/04/2024 14:12:33 10/03/20 24 10/04/2024 HIV AB/P2 4 AG WITH REFLE X HIV Ab/P24 Ag screen Non Reacti ve non reacti ve HIV-1 /HIV- 2 antib odies and HIV-1 p24 antig en were NOT detec minal. There is no labor atory evide nce of HIV infec tion. HIV Negat tony Not Available [facility] ([facility]) [address], [place], [place], [address], 10/04/2024 14:12:33 10/03/20 24 10/04/2024 ANTI- CCP AB, IGG/I GA anti-ccp Ab, IgG/IgA 6 units 0-19 Negat tony <20 Weak posit tony 20 - 39 Moder ate posit tony 40 - 59 Stron g posit tony >59 Not Available [facility] ([facility]) [address], [place], [place], [address], 10/04/2024 14:12:34 10/03/20 24 10/04/2024 SEDIM ENTAT ION RATE- WESTE RGREN sedimentatio n rate-westerg rebkeah 6 mm/HR 0-40 normal Not Available [facility] ([facility]) [address], [place], [place], [address], 10/04/2024 14:12:34 10/03/20 24 10/04/2024 C-RAVINDER CTIVE PROTE IN, QUANT C-reactive protein, quant 2 mg/L 0-10 normal Not Available [facility] ([facility]) [address], [place], [place], [address], 10/04/2024 14:12:35 08/28/20 25 08/29/2025 CBC WITH DIFFE RENTI AL/PL ATELE T WBC 12.1 x10e3 /uL 3.4-10 .8 above high normal Not Available [facility] ([facility]) [address], [place], [place], [address], 08/29/2025 12:08:15 08/28/20 25 08/29/2025 CBC WITH DIFFE RENTI AL/PL ATELE T RBC 4.35 x10e6 /uL 3.77-5 .28 normal Not Available [facility] ([facility]) [address], [place], [place], [address], 08/29/2025 12:08:15 08/28/20 25 08/29/2025 CBC WITH DIFFE RENTI AL/PL ATELE T hemoglobin 13.5 g/dL 11.1-1 5.9 normal Not Available [facility] ([facility]) [address], [place], [place], [address], 08/29/2025 12:08:15 08/28/20 25 08/29/2025 CBC WITH DIFFE RENTI AL/PL ATELE T hematocrit 41.4 % 34.0-4 6.6 normal Not Available [facility] ([facility]) [address], [place], [place], [address], 08/29/2025 12:08:15 08/28/2008/29/2025 CBC WITH DIFFE RENTI AL/PL ATELE T MCV 95 fL 79-97 normal Not Available [facility] ([facility]) [address], [place], [place], [address], 08/29/2025 12:08:15 08/28/2008/29/2025 CBC WITH DIFFE RENTI AL/PL ATELE T MCH 31.0 pg 26.6-3 3.0 normal Not Available [facility] ([facility]) [address], [place], [place], [address], 08/29/2025 12:08:15 08/28/20 25 08/29/2025 CBC WITH DIFFE RENTI AL/PL ATELE T MCHC 32.6 g/dL 31.5-3 5.7 normal Not Available [facility] ([facility]) [address], [place], [place], [address], 08/29/2025 12:08:15 08/28/20 25 08/29/2025 CBC WITH DIFFE RENTI AL/PL ATELE T RDW 13.2 % 11.7-1 5.4 Not Available [facility] ([facility]) [address], [place], [place], [address], 08/29/2025 12:08:15 08/28/20 25 08/29/2025 CBC WITH DIFFE RENTI AL/PL ATELE T platelets 452 x10e3 /uL 150-45 0 above high normal Not Available [facility] ([facility]) [address], [place], [place], [address], 08/29/2025 12:08:15 08/28/20 25 08/29/2025 CBC WITH DIFFE RENTI AL/PL ATELE T neutrophils 46 % not estab. normal Not Available [facility] ([facility]) [address], [place], [place], [address], 08/29/2025 12:08:15 08/28/20 25 08/29/2025 CBC WITH DIFFE RENTI AL/PL ATELE T lymphs 41 % not estab. normal Not Available [facility] ([facility]) [address], [place], [place], [address], 08/29/2025 12:08:15 08/28/20 25 08/29/2025 CBC WITH DIFFE RENTI AL/PL ATELE T monocytes 8 % not estab. normal Not Available [facility] ([facility]) [address], [place], [place], [address], 08/29/2025 12:08:15 08/28/20 25 08/29/2025 CBC WITH DIFFE RENTI AL/PL ATELE T eos 4 % not estab. normal Not Available [facility] ([facility]) [address], [place], [place], [address], 08/29/2025 12:08:15 08/28/20 25 08/29/2025 CBC WITH DIFFE RENTI AL/PL ATELE T basos 1 % not estab. normal Not Available [facility] ([facility]) [address], [place], [place], [address], 08/29/2025 12:08:15 08/28/20 25 08/29/2025 CBC WITH DIFFE RENTI AL/PL ATELE T immature cells WARRANT SERVER Not Available [facility] ([facility]) [address], [place], [place], [address], 08/29/2025 12:08:15 08/28/20 25 08/29/2025 CBC WITH DIFFE RENTI AL/PL ATELE T neutrophils (absolute) 5.7 x10e3 /uL 1.4-7. 0 normal Not Available [facility] ([facility]) [address], [place], [place], [address], 08/29/2025 12:08:15 08/28/20 25 08/29/2025 CBC WITH DIFFE RENTI AL/PL ATELE T lymphs (absolute) 4.9 x10e3 /uL 0.7-3. 1 above high normal Not Available [facility] ([facility]) [address], [place], [place], [address], 08/29/2025 12:08:15 08/28/20 25 08/29/2025 CBC WITH DIFFE RENTI AL/PL ATELE T monocytes(ab solute) 0.9 x10e3 /uL 0.1-0. 9 normal Not Available [facility] ([facility]) [address], [place], [place], [address], 08/29/2025 12:08:15 08/28/20 25 08/29/2025 CBC WITH DIFFE RENTI AL/PL ATELE T eos (absolute) 0.4 x10e3 /uL 0.0-0. 4 normal Not Available [facility] ([facility]) [address], [place], [place], [address], 08/29/2025 12:08:15 08/28/20 25 08/29/2025 CBC WITH DIFFE RENTI AL/PL ATELE T baso (absolute) 0.1 x10e3 /uL 0.0-0. 2 normal Not Available [facility] ([facility]) [address], [place], [place], [address], 08/29/2025 12:08:15 08/28/20 25 08/29/2025 CBC WITH DIFFE RENTI AL/PL ATELE T immature granulocytes 0 % not estab. Not Available [facility] ([facility]) [address] [place], [address], 08/29/2025 12:08:15 08/28/20 25 08/29/2025 CBC WITH DIFFE RENTI AL/PL ATELE T immature grans (abs) 0.0 x10e3 /uL 0.0-0. 1 Not Available [facility] ([facility]) [address], [place], [address], 08/29/2025 12:08:15 08/28/20 25 08/29/2025 CBC WITH DIFFE RENTI AL/PL ATELE T NRBC WARRANT SERVER Not Available [facility] ([facility]) [address], [place], [address], 08/29/2025 12:08:15 08/28/20 25 08/29/2025 CBC WITH DIFFE RENTI AL/PL ATELE T hematology comments: WARRANT SERVER Not Available [facility] ([facility]) [address], [place], [address], 08/29/2025 12:08:15 08/28/20 25 08/29/2025 COMP. METAB OLIC PANEL (14) glucose 83 mg/dL 70-99 normal Not Available [facility] ([facility]) [address], [place], [id number], 08/29/2025 12:08:16 08/28/20 25 08/29/2025 COMP. METAB OLIC PANEL (14) BUN 15 mg/dL 8-27 normal Not Available [facility] ([facility]) [address], [place], [id number], 08/29/2025 12:08:16 08/28/20 25 08/29/2025 COMP. METAB OLIC PANEL (14) creatinine 0.84 mg/dL 0.57-1 .00 normal Not Available [facility] ([facility]) [address] [place], [id number], 08/29/2025 12:08:16 08/28/20 25 08/29/2025 COMP. METAB OLIC PANEL (14) eGFR 79 mL/mi n/1.7 3 >59 normal Not Available [facility] ([facility]) [address] [place], [id number], 08/29/2025 12:08:16 08/28/20 25 08/29/2025 COMP. METAB OLIC PANEL (14) BUN/creatini ne ratio 18 12-28 normal Not Available [facility] [facility] [address], [place], [place], [address], 08/29/2025 12:08:16 08/28/20 25 08/29/2025 COMP. METAB OLIC PANEL (14) sodium 140 mmol/ L 134-14 4 normal Not Available [facility] ([facility]) [address], [place], [place], [address], 08/29/2025 12:08:16 08/28/20 25 08/29/2025 COMP. METAB OLIC PANEL (14) potassium 4.8 mmol/ L 3.5-5. 2 normal Not Available [facility] ([facility]) [address], [place], [place], [address], 08/29/2025 12:08:16 08/28/20 25 08/29/2025 COMP. METAB OLIC PANEL (14) chloride 105 mmol/ L 96-106 normal Not Available [facility] ([facility]) [address], [place], [place], [address], 08/29/2025 12:08:16 08/28/20 25 08/29/2025 COMP. METAB OLIC PANEL (14) carbon dioxide, total 21 mmol/ L 20-29 normal Not Available [facility] ([facility]) [address] [place], [address], 08/29/2025 12:08:16 08/28/20 25 08/29/2025 COMP. METAB OLIC PANEL (14) calcium 9.9 mg/dL 8.7-10 .3 normal Not Available [facility] ([facility]) [address], [place], [place], [address], 08/29/2025 12:08:16 08/28/20 25 08/29/2025 COMP. METAB OLIC PANEL (14) protein, total 6.2 g/dL 6.0-8. 5 normal Not Available [facility] ([facility]) [address], [place], [place], [address], 08/29/2025 12:08:16 08/28/20 25 08/29/2025 COMP. METAB OLIC PANEL (14) albumin 4.0 g/dL 3.9-4. 9 normal Not Available [facility] ([facility]) [address] [place], [address], 08/29/2025 12:08:16 08/28/20 25 08/29/2025 COMP. METAB OLIC PANEL (14) globulin, total 2.2 g/dL 1.5-4. 5 Not Available [facility] ([facility]) [address] [place], [address], 08/29/2025 12:08:16 08/28/20 25 08/29/2025 COMP. METAB OLIC PANEL (14) bilirubin, total <0.2 mg/dL 0.0-1. 2 Not Available [facility] ([facility]) [address] [place], [address], 08/29/2025 12:08:16 08/28/20 25 08/29/2025 COMP. METAB OLIC PANEL (14) alkaline phosphatase 73 IU/L 49-135 normal Not Available [facility] ([facility]) [address] [place], [address], 08/29/2025 12:08:16 08/28/20 25 08/29/2025 COMP. METAB OLIC PANEL (14) AST (SGOT) 16 IU/L 0-40 normal Not Available [facility] ([facility]) [address] [place], [address], 08/29/2025 12:08:16 08/28/20 25 08/29/2025 COMP. METAB OLIC PANEL (14) ALT (SGPT) 15 IU/L 0-32 normal Not Available [facility] ([facility]) [address], [place], [address], 08/29/2025 12:08:16 08/28/20 25 08/29/2025 LIPID PANEL cholesterol, total 186 mg/dL 100-19 9 normal Not Available [facility] ([facility]) [address], [place], [address], 08/29/2025 12:08:17 08/28/20 25 08/29/2025 LIPID PANEL triglyceride s 201 mg/dL 0-149 above high normal Not Available [facility] ([facility]) [address] [place], [address], 08/29/2025 12:08:17 08/28/20 25 08/29/2025 LIPID PANEL HDL cholesterol 51 mg/dL >39 normal Not Available [facility] ([facility]) [address] [place], [address], 08/29/2025 12:08:17 08/28/20 25 08/29/2025 LIPID PANEL VLDL cholesterol bhanu 34 mg/dL 5-40 Not Available [facility] ([facility]) [address] [place], [address], 08/29/2025 12:08:17 08/28/20 25 08/29/2025 LIPID PANEL LDL chol calc ([facility]) 101 mg/dL 0-99 above high normal Not Available [facility] (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) [address], [place], [place], [address], 08/29/2025 12:08:17 08/28/20 25 08/29/2025 TSH TSH 1.660 uIU/m L 0.450- 4.500 normal Not Available [facility] ([facility]) [address], [place], [place], [address], 08/29/2025 12:08:17 08/28/20 25 08/29/2025 RHEUM ATOID FACTO R (RF) rheumatoid factor (rf) 16.2 IU/mL <14.0 above high normal Not Available [facility] ([facility]) [address], [place], [place], [address], 08/29/2025 12:08:17 08/28/2008/29/2025 VITAM IN D, 25-HY [...] um and D. Castro medina [place]: [facility] . 2. Lindy esparza MF, Sienna kapoor [place], Adan off-F errar i ZHANG, et al. Evalu ation , treat ment, and preve ntion of vitam in D defic iency : an Endoc rine Socie ty clini bhanu pract ice guide line. JCEM. 2010; 96(7) :1911 -30. Not Available [facility] ([facility]) [address], [place], [place], [address], 08/29/2025 12:08:18 08/28/20 25 08/29/2025 ANTI- CCP AB, IGG/I GA anti-ccp Ab, IgG/IgA 8 units 0-19 Negat tony <20 Weak posit tony 20 - 39 Moder ate posit tony 40 - 59 Stron g posit tony >59 Not Available [facility] ([facility]) [address], [place], [place], [address], 08/29/2025 12:08:18 08/28/20 25 08/29/2025 ANTIN UCLEA R AB MULTI PLEX RFX 9 SAVANA direct Negati ve negati ve Not Available [facility] ([facility]) [address], [place], [place], [address], 08/29/2025 12:08:19 08/28/20 25 08/29/2025 SEDIM ENTAT ION RATE- WESTE RGREN sedimentatio n rate-westerg rebekah 10 mm/HR 0-40 normal Not Available [facility] ([facility]) [address], [place], [place], [address], 08/29/2025 12:08:19 08/28/2008/29/2025 C-RAVINDER CTIVE PROTE IN, QUANT C-reactive protein, quant 2 mg/L 0-10 normal Not Available [facility] ([facility]) [address], [place], [place], [address], 08/29/2025 12:08:20 08/29/20 25 04/25/2024 MAMMO , scree shahid, bilat eral No observ ation record ed. [email or web address] Not Available 09/01 14:31:21 08/29/2008/28/2025 XR, hand, 3 or more view No observ ation record ed. [facility]iology) [address] , [place], [address], 08/29/2025 14:44:39 Result Notes None recorded. Problems Name Problem SNOMED Code Status Onset Date Resolution Date Notes Provider Name and Address Organization Details Recorded Time Pain of multiple joints 26796411 Active 2023 CARLOS Moralez [address] [place] [address], [phone], [place] [employer] 4 11:57:58 Rheumatoid factor detected 973330037 Active 2023 CARLOS Moralez [address] [place] [address], [phone], [employer] 4 11:58:18 Depressive disorder 58796125 Active 2024 CARLOS Moralez [address] [place] [address], 48[address] 8, [employer] 5 12:07:04 Hyperlipide noble 74822623 Active 2024 CARLOS Moralez [address] [place] [address], [address] 8, [employer] 5 12:07:32 Allergic rhinitis 21343811 Active 2024 CARLOS Moralez [address] [place] [address], [address] 8, [employer] 5 12:07:56 Essential hypertensio n 15474558 Active 2024 CARLOS Moralez [address] [place] [address], [address] 8, [employer] 5 12:08:12 Pain of bilateral hands 3893341190751 9109 Active 2024 CARLOS Moralez [address] [place] [address], [address] 8, [employer] 5 11:02:35 Pain of right shoulder joint 9727401158727 9100 Active 2024 CARLOS Moralez [address] [place] [address], [address] 8, [employer] 5 13:40:49 Problem Notes None recorded. Procedures Surgical History Date Name Laterality Status Provider Name and Address Organization Details Recorded Time 08/28/20 25 Joint Injection completed CARLOS Moralez [address] [place] [address], [phone], [employer] 08/28/2025 13:39:24 04/25/20 24 Most Recent Mammogram completed [facility]. 08/29/2025 09:44:33 12/16/19 22 Date of Last Pap Smear completed [facility]. 08/29/2025 09:45:01 Breast Biopsy completed [employer]. 10/03/2024 09:42:42 [facility] 10/03/2024 09:42:42 Orthopedic Surgery completed [facility]. 10/03/2024 09:45:37 Total Hysterectomy completed [facility]. 10/03/2024 09:42:42 Imaging Results None recorded. Procedure [...] Updated DateTime 5 165.1 cm 26.4 kg/m2 39575.0 3 g 64 /min 95 % 95 % 98.2 [degF] 122/78 mm[Hg] [facility] [employer], [facility]. 5 10:38:47 Date Recorded Body weight Body mass index (BMI) Body height Oxygen saturation Oxygen saturation in Arterial blood by Pulse oximetry Heart rate Systolic And Diastolic Systolic And Diastolic Systolic And Diastolic Provider Name and Address Organization Details Last Updated DateTime 50942.0 6 g 26.6 kg/m2 165.1 cm 97 % 97 % 65 /min 153/84 mm[Hg] 149/88 mm[Hg] 136/78 mm[Hg] Grisel Lawton [employer] 09:49:11 Social History Question Answer Notes LastModified by Organizat ion Details LastModified Time Tobacco Smoking Status Former Smoker Grisel Lawton elisa, [employer], [employer]. 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 [id number] Information not available 10/03/2024 Who Is Your Employer? [employer] Information not available 10/03/2024 How [...] Do You Have A Medical Power Of Bindery Manager? No Information not available 10/03/2024 What Was [...] anxious, or unable to sleep at night)? [id number] Information not available 10/03/2024 Do you have [...] Artery Disease N Other N Gout N Blood Diseases N Kidney Stones N Hyperthyroidism N Blood Transfusion N Breast Cancer N Emergency room visit since last appointm ent. N Lung Disease N COPD N Depression N Dermatologic Disorders N Hypothyroidism N Defects or Inherited Disease N Developmental or Behavioral Disorders N Breast Problem N Difficulty Swallowing N [...] N High Cholesterol Y Liver Disease N Psychiatric/Mental Health Condition N Organ Transplant N Dialysis N Schizophrenia N Fibromyalgia N Headaches N Kidney Disease N Allergies/Hayfever N Heart Problems N Ear or Hearing Problems N Hospitalizations N Learning Disorder N Artificial Joints N Thyroid Problems N GI Problems N Acne N ADD/ADHD N Eating Disorder N Anemia N Constipation N Mental Illness N Diabetes N Ovarian Cancer N Bedwetting N Hepatitis/Liver Disease N Tuberculosis N Eczema N Abuse/Domestic Violence N Diverticulitis N Asthma Y Trauma/Violence N Substance Abuse [...] Recorded Time Tdap 2 completed CARLOS Moralez [address] [place] [address], [phone], [employer] 10/03/2024 10:17:45 pneumococcal polysaccharide PPV23 9 completed CARLOS Moralez [address] [place] [address], [phone], [facility] [email or web address] 10/03/2024 10:18:06 zoster live 4 completed CARLOS Moralez [address] [place] [address], [phone], [facility] [email or web address] 10/03/2024 10:18:35 Influenza, split virus, quadrivalent, PF 0 completed Not Available [facility] 08/28/2025 10:11:20 COVID-19 vaccine, vector-nr, rS-Ad26, PF, 0.5 mL 1 completed Not Available [facility] 08/28/2025 10:11:20 COVID-19, mRNA, LNP-S, PF, 30 mcg/0.3 mL dose 1 completed Not Available [facility] 08/28/2025 10:11:20 Influenza, split virus, quadrivalent, PF 3 completed Not Available [facility] 08/28/2025 10:11:20 Past Encounters Encounter ID Performer Location Encounter Start Date Encounter Closed Date Diagnosis/Indication Diagnosis SNOMED-CT Code Diagnosis ICD10 Code Diagnosis IMO Codes Diagnosis Note [id number] CARLOS Moralez [facility] [address] [place] [address] 10/03/2024 09:36:18 10/03/2024 10:44:35 Adult health examination 395851410 Z00.00 Pain of mu ltiple joints 94406326 M25.50 Elton hurt her stomachTri al Prednisone burst, sulfasalaz ine Body mass index 25-29 - overweight 272452451 Z68.26 [id number] CARLOS Moralez [facility] [address] [place] [address] 08/28/2025 10:10:42 08/28/2025 11:20:59 Pain of bilateral hands 5734370398 4534684 M79.641 M79.642 96637248 Pain of mu ltiple joints 42463111 M25.50 620739 Hyperlipidemia 12121214 E78.5 02904279 Pain of ri ght shoulder joint 2829785930 8632387 M25.511 665308 Try intraartic ular injection to see if any improvemen t noted Health Concerns Section Related Observation LastModified by Organization Detai ls LastModified Time None Recorded Concern Status LastModified by Organization Details LastModified Time None Recorded Advance Directives Directive N: Payers Insurance Date Sequence Insurance Name Policy Number Policy Mcnair Covered Member ID Mcnair Member ID Guarantor Name 08/25/2025 1 [place] [id number] Ifrah Craig [id number] Ifrah Craig Notes Date Note Type Note Provider Name and Address Organization Details Recorded Time 10/03/2024 text/html Patient presents to establish care.History of anxiety/depression, GERD, allergies, HTN, HRT, HLD.She states some of her stress and anxiety has changed, as her mother and she is no longer having to provide 24/7 care for her. However, now she is cleaning out her house and has worsening pain and stiffness in all her joints and is exhausted. CARLOS Moralez [address] [place] [address], [phone], [facility] [employer] 10/03/2024 13:07:04 08/28/2025 text/html ROS as noted in the HPI Patient presents for followup.History of polyarthralgia. She has positive RF in the past. Saw rheumatology a few yeasr ago. They didn't really do much. Has pain, stiffness, swelling in her hands especially. Has severe right shoulder pain as well. Moved to [place] - saw a PCP there. Tried Celebrex but it doesn't really help. Sulfasalazine didn't help. Mobic does help but hurts her stomach. CARLOS Moralez [address] [place] [address], [phone], [facility] [employer] 08/28/2025 13:42:27 OBGyn Episode No OBEpisode recorded.
--- NOTE | 2025-09-17 13:00 | MM_ITS ---
PROCEDURE INFORMATION: Exam: US Left Breast, Complete US Right Breast, Complete MG Bilateral Diagnostic Breast Tomosynthesis Exam date and time: 09/17/2025 1:25 PM Age: 60 years old Clinical indication: Abnormal findings in both breasts on screening mammogram. TECHNIQUE: Imaging protocol: Complete ultrasound of all four quadrants of the left breast and the retroareolar regions, including ultrasound of the axilla when performed. Complete ultrasound of all four quadrants of the right breast and the retroareolar regions, including ultrasound of the axilla when performed. Bilateral Diagnostic tomosynthesis and 2D mammography including computer-aided detection (CAD) when performed. Unilateral or bilateral exam. COMPARISON: 1. MG MM DIG SCREENING MAMM BI W/CAD 04/25/2024 1:08 PM 2. Please note that no recent screening mammogram within this past year is available for comparison. FINDINGS: MAMMOGRAPHY: Breast composition: The breasts are heterogeneously dense, which may obscure small masses. Breast mammogram findings: Spot compression views of the right breast in the lateral aspect demonstrates no underlying residual discrete mass. There is no distortion or suspicious calcifications. Spot compression views of the medial aspect of the left breast demonstrates a possible obscured mass with punctate calcifications in the upper inner quadrant, 3-4 cm from the nipple that measures approximately 1.1 cm. ULTRASOUND: Breast ultrasound findings: Complete scanning of the right breast is performed. Complicated cyst in the lower inner quadrant measuring 0.5 x 0.7 x 0.7 cm at 5 o'clock, 4 cm from the nipple. Complicated cyst in the right breast 6 o'clock axis, 2 cm from the nipple measuring 0.6 x 0.6 x 0.5 cm. Additional complicated scattered cysts seen throughout the right breast, which appear benign. No axillary adenopathy. In the left breast at the 7 o'clock axis, 4 cm from the nipple, there is a hypoechoic mass that measures 1.2 x 1.5 x 0.4 cm. Margins are slightly indistinct. Ultrasound-guided biopsy is recommended. In the left breast 11 o'clock axis, 4 cm from the nipple, there is an indistinct hypoechoic mass measuring 0.9 x 0.7 x 0.9 cm. This is believed to correlate to the mammogram finding. Ultrasound-guided biopsy is recommended. No axillary adenopathy. Minimal complicated cystic change in the left breast 2 o'clock axis which is benign. IMPRESSION: 1. Ultrasound-guided needle biopsy is recommended for left breast masses at 7 o'clock and 11 o'clock. The 11 o'clock findings believed to correlate to the mammographic mass seen in the upper inner quadrant. 2. Bilateral complicated cysts. Six-month follow-up right breast ultrasound is recommended for cysts at the 5 o'clock axis and 6 o'clock axis. ASSESSMENT: BI-RADS Category 4: Suspicious.
== END 2025-09-17 23:59 | disposition home or self-care (01) ==
PROVIDERS: PCP Physician Assistant; Visit Provider Obstetrics & Gynecology
DX: N63.22 Unspecified lump in the left breast, upper inner quadrant (principal); N63.24 Unspecified lump in the left breast, lower inner quadrant; N60.01 Solitary cyst of right breast; R92.333 Mammographic heterogeneous density, bilateral breasts; R92.8 Other abnormal and inconclusive findings on diagnostic imaging of breast
CPT/HCPCS: 76641; 77062; 77066; G0279

== ENCOUNTER 2025-09-26 10:28 | Outpatient (CLI) | payer BC, SELFPAY ==
--- OUTSIDE RECORDS SUMMARY | 2025-09-26 10:30 | XMS_ITS | Patient Health Record ---
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 Name Role Phone Unknown, PCP Primary Care Provider Anamika Islas Unavailable [phone] Allergies No Known Allergies Reason For Referral [...] Immunizations Vaccine Route Administration Date Status Comme [facility] [id number] Flublok, 18yo & older, PFS [...] Status W/U Status Risk Notes Problem Asthma (021104318) Asthma (J45.909) Active confirmed Problem Hypertension (08773251) Hypertension (I10) Active confirmed Problem Hyperlipidemia (87715559) Hyperlipidemia (E78.5) Active confirmed Problem Prediabetes (833572225) Prediabetes (R73.09) Active confirmed Problem Overweight (768732529) Overweight (BMI 25.0-29.9) (E66.3) Active confirmed Vital Signs Temperature 97.1 degrees Fahrenheit 05/19/2025 Respiratory Rate 18 /min 05/19/2025 Blood pressure diastolic 84 mm Hg 05/19/2025 Height 065 in 05/19/2025 Blood pressure systolic 128 mm Hg 05/19/2025 Weight 0160 lbs 05/19/2025 BMI 26.62 kg/m2 05/19/2025 Encounters Encounter Location Date Provider Diagnosis [facility] [address] [place] [address] 05/19/2025 Anamika Aris Otitis media, left H66.92 [...] Coverage Start Date Coverage End Date [facility] [address] [place] [address] [id number] Ifrah Craig Self - patient is the insured Medications Administered Medication Instructions Date of Administration Dosage Notes dexAMETHasone Sodium Phosphate 05/19/2025 6 mg Medical (General) History Medical History History ICD Code Asthma J45.909 Hypertension I10 Hyperlipidemia E78.5 Prediabetes R73.09 Surgical History Surgery Date(Month/Year) Skin cancer removals on chest Right foot repair Septum repair 2008 Hysterectomy 2005 Hospitalization History Reason Date(Month/Year) Childbirth 1989
--- OUTSIDE RECORDS SUMMARY | 2025-09-26 10:30 | XMS_ITS | Continuity of Care Document ---
Author Organization [employer] [facility] Address [address] [address] Assessment No assessment recorded. Plan of Treatment Reminders Order Date Submit Date Provider Last Modified By Organization Details Last Modified Time Details Appointments FOLLOW UP 15 2025 10:30A M Cassie Levin PA-C Not available Not available Not available Lab rf (rheumato id factor), serum 2024 025 [facility]), [facility] [place], [address], 08/29/2025 12:08:17 C reactive protein, QN, serum or plasma 2024 025 [facility], [address] [place] [address], [address], 08/29/2025 12:08:20 erythrocy te sedimenta tion rate by westergre n method 2024 025 [facility], [address] [place] [address], [address], 08/29/2025 12:08:19 SAVANA (antinucl ear antibodie s) screen, serum 2024 025 [facility]), [address] [place] [address], [address], 08/29/2025 12:08:19 ccp (cyclic citrullin ated peptide) iga+igg, serum 2024 025 [facility]), [address] [place], [address], 08/29/2025 12:08:18 CMP, serum or plasma 2024 [facility]), [address] [place], [address], 08/29/2025 12:08:16 CBC w/ auto diff 2024 [facility]), [address] [place], [address], 08/29/2025 12:08:16 TSH, ultra-sen sitive, serum 2024 [facility]), [address] [place], [address], 08/29/2025 12:08:17 vitamin D, 25-hydrox y, total, serum 2024 [facility]), [address] [place], [address], 08/29/2025 12:08:18 lipid panel, serum 2024 [facility]), [address] [place], [address], 08/29/2025 12:08:17 Referral None recorded. Procedures None recorded. Surgeries None recorded. Imaging XR, hand, 3 or more view 2024 [facility] (Radiology), [address] , [place], [address], 08/29/2025 14:05:24 Medication Orders prednison e 20 mg tablet 2024 [facility] [id number], [address] [place], [address], 09/09/2025 05:01:27 Depo-Medr ol 80 mg/mL suspensio n for injection 2024 025 [facility] [id number], [address] [place], [address], 08/28/2025 13:40:49 lidocaine HCl 20 mg/mL (2 %) injection solution [email or web address] [facility] [id number], [address] [place], [address], 08/28/2025 13:40:49 Patient TargetsNo targets recorded. Patient Instructions Encounter Date Encounter Id Patient Instructions Last Modified By Organization Details Last Modified Time 08/28/2025 [id number] high cholesterol : care instructions [email or web address] Not available 08/28/2025 11:37:22 Reason for Referral None Reported. Results Created Date Observation Date Name Description Value Unit Range Abnormal Flag Note LastModifiedBy Organization Detail LastModifiedTime 08/28/2008/29/2025 CBC WITH DIFFE RENTI AL/PL ATELE T WBC 12.1 x10e3 /uL 3.4-10 .8 above high normal Not Available [facility] ([facility]) [address] [place], [address], 08/29/2025 12:08:15 08/28/2008/29/2025 CBC WITH DIFFE RENTI AL/PL ATELE T RBC 4.35 x10e6 /uL 3.77-5 .28 normal Not Available [facility] ([facility]) [address] [place], [address], 08/29/2025 12:08:15 08/28/2008/29/2025 CBC WITH DIFFE RENTI AL/PL ATELE T hemoglobin 13.5 g/dL 11.1-1 5.9 normal Not Available [facility] ([facility]) [address] [place], [address], 08/29/2025 12:08:15 08/28/20 25 08/29/2025 CBC WITH DIFFE RENTI AL/PL ATELE T hematocrit 41.4 % 34.0-4 6.6 normal Not Available [facility] ([facility]) [address] [facility], [place], [address], 08/29/2025 12:08:15 08/28/2008/29/2025 CBC WITH DIFFE RENTI AL/PL ATELE T MCV 95 fL 79-97 normal Not Available [facility] ([facility]) [address] [facility], [place], [address], 08/29/2025 12:08:15 08/28/2008/29/2025 CBC WITH DIFFE RENTI AL/PL ATELE T MCH 31.0 pg 26.6-3 3.0 normal Not Available [facility] ([facility]) [address] [place], [address], 08/29/2025 12:08:15 08/28/2008/29/2025 CBC WITH DIFFE RENTI AL/PL ATELE T MCHC 32.6 g/dL 31.5-3 5.7 normal Not Available [facility] ([facility]) [address] [place], [address], 08/29/2025 12:08:15 08/28/20 25 08/29/2025 CBC WITH DIFFE RENTI AL/PL ATELE T RDW 13.2 % 11.7-1 5.4 Not Available [facility] ([facility]) [address] [place], [address], 08/29/2025 12:08:15 08/28/20 25 08/29/2025 CBC WITH DIFFE RENTI AL/PL ATELE T platelets 452 x10e3 /uL 150-45 0 above high normal Not Available [facility] ([facility]) [address] [place], [address], 08/29/2025 12:08:15 08/28/20 25 08/29/2025 CBC WITH DIFFE RENTI AL/PL ATELE T neutrophils 46 % not estab. normal Not Available [facility] ([facility]) [address] [facility], [place], [address], 08/29/2025 12:08:15 08/28/20 25 08/29/2025 CBC WITH DIFFE RENTI AL/PL ATELE T lymphs 41 % not estab. normal Not Available [facility] ([facility]) [address] [facility], [place], [address], 08/29/2025 12:08:15 08/28/20 25 08/29/2025 CBC WITH DIFFE RENTI AL/PL ATELE T monocytes 8 % not estab. normal Not Available [facility] ([facility]) [address] [facility], [place], [address], 08/29/2025 12:08:15 08/28/20 25 08/29/2025 CBC WITH DIFFE RENTI AL/PL ATELE T eos 4 % not estab. normal Not Available [facility] ([facility]) [address] [facility], [place], [address], 08/29/2025 12:08:15 08/28/20 25 08/29/2025 CBC WITH DIFFE RENTI AL/PL ATELE T basos 1 % not estab. normal Not Available [facility] ([facility]) [address] [facility], [place], [address], 08/29/2025 12:08:15 08/28/20 25 08/29/2025 CBC WITH DIFFE RENTI AL/PL ATELE T immature cells SUPERVISOR TELLERS Not Available [facility] ([facility]) [address] [facility], [place], [address], 08/29/2025 12:08:15 08/28/20 25 08/29/2025 CBC WITH DIFFE RENTI AL/PL ATELE T neutrophils (absolute) 5.7 x10e3 /uL 1.4-7. 0 normal Not Available [facility] ([facility]) [address] [facility], [place], [address], 08/29/2025 12:08:15 08/28/20 25 08/29/2025 CBC WITH DIFFE RENTI AL/PL ATELE T lymphs (absolute) 4.9 x10e3 /uL 0.7-3. 1 above high normal Not Available [facility] ([facility]) [address] [facility], [place], [address], 08/29/2025 12:08:15 08/28/20 25 08/29/2025 CBC WITH DIFFE RENTI AL/PL ATELE T monocytes(ab solute) 0.9 x10e3 /uL 0.1-0. 9 normal Not Available [facility] ([facility]) [address] [facility], [place], [address], 08/29/2025 12:08:15 08/28/20 25 08/29/2025 CBC WITH DIFFE RENTI AL/PL ATELE T eos (absolute) 0.4 x10e3 /uL 0.0-0. 4 normal Not Available [facility] ([facility]) [address] [facility], [place], [address], 08/29/2025 12:08:15 08/28/20 25 08/29/2025 CBC WITH DIFFE RENTI AL/PL ATELE T baso (absolute) 0.1 x10e3 /uL 0.0-0. 2 normal Not Available [facility] ([facility]) [address] [facility], [place], [address], 08/29/2025 12:08:15 08/28/20 25 08/29/2025 CBC WITH DIFFE RENTI AL/PL ATELE T immature granulocytes 0 % not estab. Not Available [facility] ([facility]) [address] [facility], [place], [address], 08/29/2025 12:08:15 08/28/20 25 08/29/2025 CBC WITH DIFFE RENTI AL/PL ATELE T immature grans (abs) 0.0 x10e3 /uL 0.0-0. 1 Not Available [facility] ([facility]) [address] [facility], [place], [address], 08/29/2025 12:08:15 08/28/20 25 08/29/2025 CBC WITH DIFFE RENTI AL/PL ATELE T NRBC SUPERVISOR TELLERS Not Available [facility] ([facility]) [address] [facility], [place], [address], 08/29/2025 12:08:15 08/28/20 25 08/29/2025 CBC WITH DIFFE RENTI AL/PL ATELE T hematology comments: SUPERVISOR TELLERS Not Available [facility] ([facility]) [address] [facility], [place], [address], 08/29/2025 12:08:15 08/28/20 25 08/29/2025 COMP. METAB OLIC PANEL (14) glucose 83 mg/dL 70-99 normal Not Available [facility] ([facility]) [address] [facility], [place], [address], 08/29/2025 12:08:16 08/28/20 25 08/29/2025 COMP. METAB OLIC PANEL (14) BUN 15 mg/dL 8-27 normal Not Available [facility] ([facility]) [address] [facility], [place], [address], 08/29/2025 12:08:16 08/28/20 25 08/29/2025 COMP. METAB OLIC PANEL (14) creatinine 0.84 mg/dL 0.57-1 .00 normal Not Available [facility] ([facility]) [address] [place], [address], 08/29/2025 12:08:16 08/28/20 25 08/29/2025 COMP. METAB OLIC PANEL (14) eGFR 79 mL/mi n/1.7 3 >59 normal Not Available [facility] ([facility]) [address] [facility] [place], [address], 08/29/2025 12:08:16 08/28/20 25 08/29/2025 COMP. METAB OLIC PANEL (14) BUN/creatini ne ratio 18 12-28 normal Not Available [facility] ([facility]) [address] [facility] [place], [address], 08/29/2025 12:08:16 08/28/20 25 08/29/2025 COMP. METAB OLIC PANEL (14) sodium 140 mmol/ L 134-14 4 normal Not Available [facility] ([facility]) [address] [facility] [place], [address], 08/29/2025 12:08:16 08/28/20 25 08/29/2025 COMP. METAB OLIC PANEL (14) potassium 4.8 mmol/ L 3.5-5. 2 normal Not Available [facility] ([facility]) [address] [facility], [place], [address], 08/29/2025 12:08:16 08/28/20 25 08/29/2025 COMP. METAB OLIC PANEL (14) chloride 105 mmol/ L 96-106 normal Not Available [facility] ([facility]) [address] [facility] [place], [address], 08/29/2025 12:08:16 08/28/20 25 08/29/2025 COMP. METAB OLIC PANEL (14) carbon dioxide, total 21 mmol/ L 20-29 normal Not Available [facility] ([facility]) [address] [facility] [place], [address], 08/29/2025 12:08:16 08/28/20 25 08/29/2025 COMP. METAB OLIC PANEL (14) calcium 9.9 mg/dL 8.7-10 .3 normal Not Available [facility] ([facility]) [address] [facility] [place], [address], 08/29/2025 12:08:16 08/28/20 25 08/29/2025 COMP. METAB OLIC PANEL (14) protein, total 6.2 g/dL 6.0-8. 5 normal Not Available [facility] ([facility]) [address] [facility], [place], [address], 08/29/2025 12:08:16 08/28/20 25 08/29/2025 COMP. METAB OLIC PANEL (14) albumin 4.0 g/dL 3.9-4. 9 normal Not Available [facility] ([facility]) [address] [facility], [place], [address], 08/29/2025 12:08:16 08/28/20 25 08/29/2025 COMP. METAB OLIC PANEL (14) globulin, total 2.2 g/dL 1.5-4. 5 Not Available [facility] ([facility]) [address] [facility], [place], [address], 08/29/2025 12:08:16 08/28/20 25 08/29/2025 COMP. METAB OLIC PANEL (14) bilirubin, total <0.2 mg/dL 0.0-1. 2 Not Available [facility] ([facility]) [address] [facility], [place], [address], 08/29/2025 12:08:16 08/28/20 25 08/29/2025 COMP. METAB OLIC PANEL (14) alkaline phosphatase 73 IU/L 49-135 normal Not Available [facility] ([facility]) [address] [facility], [place], [address], 08/29/2025 12:08:16 08/28/20 25 08/29/2025 COMP. METAB OLIC PANEL (14) AST (SGOT) 16 IU/L 0-40 normal Not Available [facility] ([facility]) [address] [facility], [place], [address], 08/29/2025 12:08:16 08/28/20 25 08/29/2025 COMP. METAB OLIC PANEL (14) ALT (SGPT) 15 IU/L 0-32 normal Not Available [facility] ([facility]) [address] [place], [address], 08/29/2025 12:08:16 08/28/20 25 08/29/2025 LIPID PANEL cholesterol, total 186 mg/dL 100-19 9 normal Not Available [facility] ([facility]) [address] [place], [address], 08/29/2025 12:08:17 08/28/20 25 08/29/2025 LIPID PANEL triglyceride s 201 mg/dL 0-149 above high normal Not Available [facility] ([facility]) [address] [facility] [place], [address], 08/29/2025 12:08:17 08/28/20 25 08/29/2025 LIPID PANEL HDL cholesterol 51 mg/dL >39 normal Not Available [facility] ([facility]) [address] [facility] [place], [address], 08/29/2025 12:08:17 08/28/20 25 08/29/2025 LIPID PANEL VLDL cholesterol bhanu 34 mg/dL 5-40 Not Available [facility] ([facility]) [address] [facility] [place], [address], 08/29/2025 12:08:17 08/28/20 25 08/29/2025 LIPID PANEL LDL chol calc ([facility]) 101 mg/dL 0-99 above high normal Not Available [facility] ([facility]) [address] [facility] [place], [address], 08/29/2025 12:08:17 08/28/20 25 08/29/2025 LIPID PANEL LDL calc comment: SUPERVISOR TELLERS Not Available [facility] ([facility]) [address] [facility] [place], [address], 08/29/2025 12:08:17 08/28/2008/29/2025 TSH TSH 1.660 uIU/m L 0.450- 4.500 normal Not Available [facility] ([facility]) [address] [facility], [place], [address], 08/29/2025 12:08:17 08/28/2008/29/2025 RHEUM ATOID FACTO R (RF) rheumatoid factor (rf) 16.2 IU/mL <14.0 above high normal Not Available [facility] ([facility]) [address] [facility], [place], [address], 08/29/2025 12:08:17 08/28/2008/29/2025 VITAM IN D, 25-HY [...] um and D. Castro medina [place]: The [facility] . 2. Lindy esparza [place], Sienna kapoor [place], Adan off-F enrike i ZHANG, et al. Evalu ation , treat ment, and preve ntion of vitam in D defic iency : an Endoc rine Socie ty clini bhanu pract ice guide line. JCEM. 2010; 96(7) :1911 -30. Not Available [facility] ([facility]) [address] [facility], [place], [address], 08/29/2025 12:08:18 08/28/2008/29/2025 ANTI- CCP AB, IGG/I GA anti-ccp Ab, IgG/IgA 8 units 0-19 Negat tony <20 Weak posit tony 20 - 39 Moder ate posit tony 40 - 59 Stron g posit tony >59 Not Available [facility] ([facility]) [address] [facility], [place], [address], 08/29/2025 12:08:18 08/28/20 25 08/29/2025 ANTIN UCLEA R AB MULTI PLEX RFX 9 SAVANA direct Negati ve negati ve Not Available [facility] ([facility]) [address] [facility], [place], [address], 08/29/2025 12:08:19 08/28/20 25 08/29/2025 SEDIM ENTAT ION RATE- WESTE RGREN sedimentatio n rate-westerg rebekah 10 mm/HR 0-40 normal Not Available [facility] ([facility]) [address] [facility], [place], [address], 08/29/2025 12:08:19 08/28/20 25 08/29/2025 C-RAVINDER CTIVE PROTE IN, QUANT C-reactive protein, quant 2 mg/L 0-10 normal Not Available [facility] ([facility]) [address] [facility], [place], [address], 08/29/2025 12:08:20 08/29/20 25 04/25/2024 magno AGUILAR, bilat eral No observ ation record ed. [email or web address] Not Available 09/01 14:31:21 08/29/20 25 08/28/2025 XR, hand, 3 or more view No observ ation record ed. [facility] (Radiology) [address], [place], [address], 08/29/2025 14:44:39 09/20/20 25 09/17/2025 MAMMO magnog, bilat eral No observ ation record ed. [facility] [address], [place], [address], 09/22/2025 08:36:48 09/20/2009/17/2025 jefferson JAIMES No observ ation record ed. [email or web address] [facility] [address], [address], 09/22/2025 08:37:36 09/20/2009/17/2025 jefferson JAIMES No observ ation record ed. [email or web address] [facility] [address], [address], 09/22/2025 08:38:21 Result Notes None recorded. Problems Name Problem SNOMED Code Status Onset Date Resolution Date Notes Provider Name and Address Organization Details Recorded Time Pain of multiple joints 70937536 Active 2023 CARLOS Moralez [address] [place] [address], [address], [place] [employer] 4 11:57:58 Rheumatoid factor detected 995160016 Active 2023 CARLOS Moralez [address] [place] [address], [address], [place] [employer] 4 11:58:18 Depressive disorder 79789421 Active 2024 CARLOS Moralez [address] [place] [address], [address], [employer] 5 12:07:04 Hyperlipide noble 45000489 Active 2024 CARLOS Moralez [address] [place] [address], [address], [place] [employer] 5 12:07:32 Allergic rhinitis 52043171 Active 2024 CARLOS Moralez [address] [place] [address], [address], [employer] 5 12:07:56 Essential hypertensio n 80166284 Active 2024 CARLOS Moralez [address] [place] [address], [address], [employer] 12:08:12 Pain of bilateral hands 7234541085003 9109 Active 2024 CARLOS Moralez [address] [place] [address], [address], [employer] 11:02:35 Pain of right shoulder joint 3220546843548 9100 Active 2024 CARLOS Moralez [address] [place] [address], [address], [employer] 13:40:49 Problem Notes None recorded. Procedures Surgical History Date Name Laterality Status Provider Name and Address Organization Details Recorded Time 08/28/20 25 Joint Injection completed CARLOS Moralez [address] [place] [address], [address], [employer] 08/28/2025 13:39:24 04/25/20 24 Most Recent Mammogram completed [employer] 08/29/2025 09:44:33 12/16/19 22 Date of Last Pap Smear completed [employer] 08/29/2025 09:45:01 Breast Biopsy completed [employer] 10/03/2024 09:42:42 [facility] 10/03/2024 09:42:42 Orthopedic Surgery completed [employer] 10/03/2024 09:45:37 Total Hysterectomy completed [employer] 10/03/2024 09:42:42 Imaging Results None recorded. Procedure [...] and Address Organization Details Last Updated DateTime 165.1 cm 26.4 kg/m2 74137.0 3 g 64 /min 95 % 95 % 98.2 [degF] 122/78 mm[Hg] [email or web address] 10:38:47 Social History Question Answer Notes LastModified by Organizat ion Details LastModified Time Tobacco Smoking Status Former Smoker [employer] 10/03/2024 09:42:41 Do You Have An Advance [...] Information not available 08/28/2025 What Type Of Explosives Detonator Do You Use? None Information not available [...] Or The Highest Degree You Have Received? [id number] Information not available 10/03/2024 Who Is Your Employer? [employer] Information not available 10/03/2024 How [...] Do You Have A Medical Power Of Insurance Commissioner? No Information not available 10/03/2024 What Was [...] Functional Status Question Answer Note LastModified by [employer] Details LastModified Time Do you use [...] anxious, or unable to sleep at night)? [id number] Information not available 10/03/2024 Do you have [...] Lung Disease N COPD N Depression N Hypothyroidism N Dermatologic Disorders N Defects or Inherited Disease N Developmental or Behavioral Disorders N Breast Problem N Difficulty Swallowing N Anesthesia Complications N History of STI N Anxiety Disorder N Meniere's disease N Autoimmune disease N Muscle, Joint, or Bone Problems N Vision or Eye Problems N Arthritis Y Infertility N Polyps N Mental Disorder N Congenital Anomalies N Acid Reflux (GERD) Y Cancer N Stroke N Neurologic/Epilepsy N Endometriosis N Bladder or Kidney Problems N High Cholesterol Y Liver Disease N Organ Transplant N Psychiatric/Mental Health Condition N Dialysis N Headaches N Fibromyalgia N Schizophrenia N Kidney Disease N Allergies/Hayfever N Heart [...] Recorded Time Tdap 2 completed CARLOS Moralez [address] [place] [address], [address], [employer] 10/03/2024 10:17:45 pneumococcal polysaccharide PPV23 9 completed CARLOS Moralez [address] [place] [address], [address], [employer] 10/03/2024 10:18:06 zoster live 4 completed CARLOS Moralez [address] [place] [address], [address], [employer] 10/03/2024 10:18:35 Influenza, split virus, quadrivalent, PF 0 completed Not Available [facility] 08/28/2025 10:11:20 COVID-19 vaccine, vector-nr, rS-Ad26, PF, 0.5 mL 1 completed Not Available [facility] 08/28/2025 10:11:20 COVID-19, mRNA, LNP-S, PF, 30 mcg/0.3 mL dose 1 completed Not Available [facility] 08/28/2025 10:11:20 Influenza, split virus, quadrivalent, PF 3 completed Not Available [facility] 08/28/2025 10:11:20 Past Encounters Encounter ID Performer Location Encounter Start Date Encounter Closed Date Diagnosis/Indication Diagnosis SNOMED-CT Code Diagnosis ICD10 Code Diagnosis IMO Codes Diagnosis Note [id number] CARLOS Moralez [facility] [address] [place] [address] 08/28/2025 10:10:42 08/28/2025 11:20:59 Pain of bilateral hands 7821583493 6341063 M79.641 M79.642 89206201 Pain of mu ltiple joints 22951646 M25.50 581140 Hyperlipidemia 10203905 E78.5 95083084 Pain of ri ght shoulder joint 8850342248 3871628 M25.511 592913 Try intraartic ular injection to see if any improvemen t noted Health Concerns Section Related Observation LastModified by Organization Detai ls LastModified Time None Recorded Concern Status LastModified by Organization Details LastModified Time None Recorded Payers Encounter Date Sequence Insurance Name Policy Number Policy Mcnair Covered Member ID Mcnair Member ID Guarantor Name 08/28/2025 1 [employer] [id number] Ifrah Craig [id number] Ifrah Craig Notes Date Note Type [...] right shoulder pain as well. Moved to [place] - saw a PCP there. Tried Celebrex but it doesn't really help. Sulfasalazine didn't help. Mobic does help but hurts her stomach. CARLOS Moralez [address] [place] [address], [place], [address], [place] [employer] 08/28/2025 13:42:27 OBGyn Episode No OBEpisode recorded.
--- OUTSIDE RECORDS SUMMARY | 2025-09-26 10:30 | XMS_ITS | Data Portability ---
Author Organization [employer] Address [address] [place] [address] Assessment No assessment recorded. Plan of Treatment Reminders Order Date Submit Date Provider Last Modified By Organization Details Last Modified Time Details Appointments FOLLOW UP 15 2025 10:30A M Cassie Levin PA-C Not available Not available Not available Lab rf (rheumato id factor), serum 2024 025 [facility] [place]), [address] [place] [address], [address], 08/29/2025 12:08:17 C reactive protein, QN, serum or plasma 2024 025 [facility] [place]), [address] [place] [address], [address], 08/29/2025 12:08:20 erythrocy te sedimenta tion rate by westergre n method 2024 025 [facility] [place]), [address] [place] [address], [address], 08/29/2025 12:08:19 SAVANA (antinucl ear antibodie s) screen, serum 2024 025 [facility] [place] [address] [place] [address], [address], 08/29/2025 12:08:19 ccp (cyclic citrullin ated peptide) iga+igg, serum 2024 025 [facility] ([place]), [address] [place], [address], 08/29/2025 12:08:18 CMP, serum or plasma 2024 025 [facility] [place] [address] [place], [address], 08/29/2025 12:08:16 CBC w/ auto diff 2024 025 [facility] [place]), [address] [place], [address], 08/29/2025 12:08:16 TSH, ultra-sen sitive, serum 2024 025 [facility] [place]), [address] [place], [address], 08/29/2025 12:08:17 vitamin D, 25-hydrox y, total, serum 2024 025 [facility] [place]), [address] [place], [address], 08/29/2025 12:08:18 lipid panel, serum 2024 025 [facility] [place]), [address] [place], [address], 08/29/2025 12:08:17 SAVANA + rf (antinucl ear antibodie s + rheumatoi d factor), quantitat tony, serum 2023 024 [facility] [place]), [address] [place], [address], 10/04/2024 14:12:31 ESR (erythroc yte sedimenta tion rate), blood 2023 024 [facility] [place]), [address] [place], [address], 10/04/2024 14:12:35 C reactive protein, QN, serum or plasma 2023 024 [facility] [address] [place], [address], 10/04/2024 14:12:35 ccp (cyclic citrullin ated peptide) iga+igg, serum 2023 024 [facility] ([place]), [address] [place], [address], 10/04/2024 14:12:34 lipid panel, serum 2023 024 [facility] ([place]), [address] [place], [address], 10/04/2024 14:12:30 TSH, ultra-sen sitive, serum 2023 024 [facility] ([place]), [address] [place], [address], 10/04/2024 14:12:32 vitamin D, 25-hydrox y, total, serum 2023 024 [facility] ([place]), [address] [place], [address], 10/04/2024 14:12:33 CBC w/ auto diff 2023 [facility] ([place]), [address] [place], [address], 10/04/2024 14:12:29 CMP, serum or plasma 2023 024 [facility] ([place]), [address] [place], [address], 10/04/2024 14:12:29 HIV 1 + 2, meaningfu l use set 2023 024 [facility] ([place]), [address] [place], [address], 10/04/2024 14:12:33 Hepatitis C IgG Ab, qual, serum 2023 [place] ([place]), [address] [facility], [place], [address], 10/04/2024 14:12:31 Referral None recorded. Procedures None recorded. Surgeries None recorded. Imaging XR, hand, 3 or more view 2024 [facility] [address] , [place], [address], 08/29/2025 14:05:24 Medication Orders prednison e 20 mg tablet 2024 [facility] [id number], [address] [place], [address], 09/09/2025 05:01:27 Depo-Medr ol 80 mg/mL suspensio n for injection [address] [facility] [id number], [address] [place], [address], 08/28/2025 13:40:49 lidocaine HCl 20 mg/mL (2 %) injection solution [address] [facility] [id number], [address] [place], [address], 08/28/2025 13:40:49 ketorolac 60 mg/2 mL intramusc ular solution [address] [facility] [id number], [address] [place], [address], 08/28/2025 10:36:41 Depo-Medr ol 80 mg/mL suspensio n for injection [address] [facility] [id number], [address] [place], [address], 08/28/2025 10:36:12 prednison e 20 mg tablet 2023 025 [facility] [id number], [address] [place], [address], 09/09/2025 05:01:27 sulfasala zine 500 mg tablet,de layed release 2023 025 [facility] [id number], [address] [place], [address], 08/28/2025 10:37:22 Patient TargetsNo targets recorded. Patient Instructions Encounter Date Encounter Id Patient Instructions Last Modified By Organization Details Last Modified Time 10/03/2024 [id number] learning about healthy weight Not available 10/03/2024 13:06:18 08/28/2025 [id number] high cholesterol : care instructions [email or web address] Not available 08/28/2025 11:37:22 Reason for Referral None Reported. Results Created Date Observation Date Name Description Value Unit Range Abnormal Flag Note LastModifiedBy Organization Detail LastModifiedTime 10/03/2010/04/2024 CBC WITH DIFFE RENTI AL/PL ATELE T WBC 13.8 x10e3 /uL 3.4-10 .8 above high normal Not Available [facility] ([facility]) [address] [place], [address], 10/04/2024 14:12:29 10/03/20 24 10/04/2024 CBC WITH DIFFE RENTI AL/PL ATELE T RBC 4.52 x10e6 /uL 3.77-5 .28 normal Not Available [facility] ([facility]) [address] [place], [address], 10/04/2024 14:12:29 10/03/20 24 10/04/2024 CBC WITH DIFFE RENTI AL/PL ATELE T hemoglobin 13.7 g/dL 11.1-1 5.9 normal Not Available [facility] ([facility]) [address] [place], [address], 10/04/2024 14:12:29 10/03/20 24 10/04/2024 CBC WITH DIFFE RENTI AL/PL ATELE T hematocrit 42.4 % 34.0-4 6.6 normal Not Available [facility] ([facility]) [address] [place], [address], 10/04/2024 14:12:29 10/03/20 24 10/04/2024 CBC WITH DIFFE RENTI AL/PL ATELE T MCV 94 fL 79-97 normal Not Available [facility] ([facility]) [address] [place], [address], 10/04/2024 14:12:29 10/03/20 24 10/04/2024 CBC WITH DIFFE RENTI AL/PL ATELE T MCH 30.3 pg 26.6-3 3.0 normal Not Available [facility] ([facility]) [address] [place], [address], 10/04/2024 14:12:29 10/03/20 24 10/04/2024 CBC WITH DIFFE RENTI AL/PL ATELE T MCHC 32.3 g/dL 31.5-3 5.7 normal Not Available [facility] ([facility]) [address] [place], [address], 10/04/2024 14:12:29 10/03/20 24 10/04/2024 CBC WITH DIFFE RENTI AL/PL ATELE T RDW 13.0 % 11.7-1 5.4 Not Available [facility] ([facility]) [address] [place], [address], 10/04/2024 14:12:29 10/03/20 24 10/04/2024 CBC WITH DIFFE RENTI AL/PL ATELE T platelets 483 x10e3 /uL 150-45 0 above high normal Not Available [facility] ([facility]) [address] [place], [address], 10/04/2024 14:12:29 10/03/20 24 10/04/2024 CBC WITH DIFFE RENTI AL/PL ATELE T neutrophils 50 % not estab. normal Not Available [facility] ([facility]) [address] [facility], [place], [address], 10/04/2024 14:12:29 10/03/20 24 10/04/2024 CBC WITH DIFFE RENTI AL/PL ATELE T lymphs 39 % not estab. normal Not Available [facility] ([facility]) [address] [facility], [place], [address], 10/04/2024 14:12:29 10/03/20 24 10/04/2024 CBC WITH DIFFE RENTI AL/PL ATELE T monocytes 7 % not estab. normal Not Available [facility] ([facility]) [address] [facility], [place], [address], 10/04/2024 14:12:29 10/03/20 24 10/04/2024 CBC WITH DIFFE RENTI AL/PL ATELE T eos 3 % not estab. normal Not Available [facility] ([facility]) [address] [facility], [place], [address], 10/04/2024 14:12:29 10/03/20 24 10/04/2024 CBC WITH DIFFE RENTI AL/PL ATELE T basos 1 % not estab. normal Not Available [facility] ([facility]) [address] [facility], [place], [address], 10/04/2024 14:12:29 10/03/20 24 10/04/2024 CBC WITH DIFFE RENTI AL/PL ATELE T immature cells MEDICAL CLAIMS MANAGER Not Available [facility] ([facility]) [address] [facility], [place], [address], 10/04/2024 14:12:29 10/03/20 24 10/04/2024 CBC WITH DIFFE RENTI AL/PL ATELE T neutrophils (absolute) 6.9 x10e3 /uL 1.4-7. 0 normal Not Available [facility] ([facility]) [address] [facility], [place], [address], 10/04/2024 14:12:29 10/03/20 24 10/04/2024 CBC WITH DIFFE RENTI AL/PL ATELE T lymphs (absolute) 5.4 x10e3 /uL 0.7-3. 1 above high normal Not Available [facility] ([facility]) [address] [facility], [place], [address], 10/04/2024 14:12:29 10/03/20 24 10/04/2024 CBC WITH DIFFE RENTI AL/PL ATELE T monocytes(ab solute) 1.0 x10e3 /uL 0.1-0. 9 above high normal Not Available [facility] ([facility]) [address] [facility], [place], [address], 10/04/2024 14:12:29 10/03/20 24 10/04/2024 CBC WITH DIFFE RENTI AL/PL ATELE T eos (absolute) 0.4 x10e3 /uL 0.0-0. 4 normal Not Available [facility] ([facility]) [address] [facility], [place], [address], 10/04/2024 14:12:29 10/03/20 24 10/04/2024 CBC WITH DIFFE RENTI AL/PL ATELE T baso (absolute) 0.1 x10e3 /uL 0.0-0. 2 normal Not Available [facility] ([facility]) [address] [facility], [place], [address], 10/04/2024 14:12:29 10/03/20 24 10/04/2024 CBC WITH DIFFE RENTI AL/PL ATELE T immature granulocytes 0 % not estab. Not Available [facility] ([facility]) [address] [facility], [place], [address], 10/04/2024 14:12:29 10/03/20 24 10/04/2024 CBC WITH DIFFE RENTI AL/PL ATELE T immature grans (abs) 0.0 x10e3 /uL 0.0-0. 1 Not Available [facility] ([facility]) [address] [facility], [place], [address], 10/04/2024 14:12:29 10/03/20 24 10/04/2024 CBC WITH DIFFE RENTI AL/PL ATELE T NRBC MEDICAL CLAIMS MANAGER Not Available [facility] ([facility]) [address] [facility], [place], [address], 10/04/2024 14:12:29 10/03/20 24 10/04/2024 CBC WITH DIFFE RENTI AL/PL ATELE T hematology comments: MEDICAL CLAIMS MANAGER Not Available [facility] ([facility]) [address] [facility], [place], [address], 10/04/2024 14:12:29 10/03/20 24 10/04/2024 COMP. METAB OLIC PANEL (14) glucose 82 mg/dL 70-99 normal Not Available [facility] ([facility]) [address] [facility], [place], [address], 10/04/2024 14:12:29 10/03/20 24 10/04/2024 COMP. METAB OLIC PANEL (14) BUN 14 mg/dL 8-27 normal Not Available [facility] ([facility]) [address] [facility], [place], [address], 10/04/2024 14:12:29 10/03/20 24 10/04/2024 COMP. METAB OLIC PANEL (14) creatinine 0.68 mg/dL 0.57-1 .00 normal Not Available [facility] ([facility]) [address] [facility], [place], [address], 10/04/2024 14:12:29 10/03/20 24 10/04/2024 COMP. METAB OLIC PANEL (14) eGFR 99 mL/mi n/1.7 3 >59 normal Not Available [facility] ([facility]) [address] [place], [address], 10/04/2024 14:12:29 10/03/20 24 10/04/2024 COMP. METAB OLIC PANEL (14) BUN/creatini ne ratio 21 12-28 normal Not Available [facility] ([facility]) [address] [place], [address], 10/04/2024 14:12:29 10/03/20 24 10/04/2024 COMP. METAB OLIC PANEL (14) sodium 142 mmol/ L 134-14 4 normal Not Available [facility] ([facility]) [address] [place], [address], 10/04/2024 14:12:29 10/03/20 24 10/04/2024 COMP. METAB OLIC PANEL (14) potassium 4.6 mmol/ L 3.5-5. 2 normal Not Available [facility] ([facility]) [address] [place], [address], 10/04/2024 14:12:29 10/03/20 24 10/04/2024 COMP. METAB OLIC PANEL (14) chloride 105 mmol/ L 96-106 normal Not Available [facility] ([facility]) [address] [facility] [place], [address], 10/04/2024 14:12:29 10/03/20 24 10/04/2024 COMP. METAB OLIC PANEL (14) carbon dioxide, total 23 mmol/ L 20-29 normal Not Available [facility] ([facility]) [address] [facility] [place], [address], 10/04/2024 14:12:29 10/03/20 24 10/04/2024 COMP. METAB OLIC PANEL (14) calcium 9.9 mg/dL 8.7-10 .3 normal Not Available [facility] ([facility]) [address] [facility], [place], [address], 10/04/2024 14:12:29 10/03/20 24 10/04/2024 COMP. METAB OLIC PANEL (14) protein, total 6.4 g/dL 6.0-8. 5 normal Not Available [facility] ([facility]) [address], [place], [address], 10/04/2024 14:12:29 10/03/20 24 10/04/2024 COMP. METAB OLIC PANEL (14) albumin 4.2 g/dL 3.9-4. 9 normal Not Available [facility] ([facility]) [address] [facility], [place], [address], 10/04/2024 14:12:29 10/03/20 24 10/04/2024 COMP. METAB OLIC PANEL (14) globulin, total 2.2 g/dL 1.5-4. 5 Not Available [facility] ([facility]) [address] [facility], [place], [address], 10/04/2024 14:12:29 10/03/20 24 10/04/2024 COMP. METAB OLIC PANEL (14) bilirubin, total <0.2 mg/dL 0.0-1. 2 Not Available [facility] ([facility]) [address] [facility], [place], [address], 10/04/2024 14:12:29 10/03/20 24 10/04/2024 COMP. METAB OLIC PANEL (14) alkaline phosphatase 80 IU/L 44-121 normal Not Available [facility] ([facility]) [address] [facility], [place], [address], 10/04/2024 14:12:29 10/03/20 24 10/04/2024 COMP. METAB OLIC PANEL (14) AST (SGOT) 14 IU/L 0-40 normal Not Available [facility] ([facility]) [address] [facility], [place], [address], 10/04/2024 14:12:29 10/03/20 24 10/04/2024 COMP. METAB OLIC PANEL (14) ALT (SGPT) 13 IU/L 0-32 normal Not Available [facility] ([facility]) [address] [facility], [place], [address], 10/04/2024 14:12:29 10/03/20 24 10/04/2024 LIPID PANEL cholesterol, total 189 mg/dL 100-19 9 normal Not Available [facility] ([facility]) [address] [facility] [place], [address], 10/04/2024 14:12:30 10/03/20 24 10/04/2024 LIPID PANEL triglyceride s 287 mg/dL 0-149 above high normal Not Available [facility] ([facility]) [address] [place], [address], 10/04/2024 14:12:30 10/03/20 24 10/04/2024 LIPID PANEL HDL cholesterol 50 mg/dL >39 normal Not Available [facility] ([facility]) [address] [place], [address], 10/04/2024 14:12:30 10/03/20 24 10/04/2024 LIPID PANEL VLDL cholesterol bhanu 48 mg/dL 5-40 above high normal Not Available [facility] ([facility]) [address] [place], [address], 10/04/2024 14:12:30 10/03/20 24 10/04/2024 LIPID PANEL LDL chol calc ([facility]) 91 mg/dL 0-99 Not Available [facility] ([facility]) [address] [place], [address], 10/04/2024 14:12:30 10/03/20 24 10/04/2024 LIPID PANEL LDL calc 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 Not Available [facility] ([facility]) [address] [place], [address], 10/04/2024 14:12:30 10/03/20 24 10/04/2024 SAVANA+R F QN SAVANA direct Negati ve negati ve Not Available [facility] ([facility]) [address] [facility], [place], [address], 10/04/2024 14:12:31 10/03/20 24 10/04/2024 SAVANA+R F QN rheumatoid factor (rf) 16.1 IU/mL <14.0 above high normal Not Available [facility] ([facility]) [address] [facility], [place], [address], 10/04/2024 14:12:31 10/03/20 24 10/04/2024 HCV ANTIB LEEANN CASCA DE(PC R/GEN O) HCV Ab Non Reacti ve non reacti ve Not Available [facility] ([facility]) [address] [facility], [place], [address], 10/04/2024 14:12:31 10/03/20 24 10/04/2024 HCV ANTIB ELEANN CASCA DE(PC R/GEN O) interpretati on: Commen t Not infec minal with HCV unles s early or acute infec tion is suspe cted (whic h may be delay ed in an immun ocomp romis ed indiv idual ), or other evide nce exist s to indic ate HCV infec tion. Not Available [facility] ([facility]) [address] [facility], [place], [address], 10/04/2024 14:12:31 10/03/20 24 10/04/2024 TSH TSH 1.910 uIU/m L 0.450- 4.500 normal Not Available [facility] ([facility]) [address] [facility], [place], [address], 10/04/2024 14:12:32 10/03/20 24 10/04/2024 VITAM IN [...] um and D. Castro medina [place]: [facility] . 2. Lindy esparza [place], Sienna kapoor [place], Adan off-F enrike i ZHANG, et al. Evalu ation , treat ment, and preve ntion of vitam in D defic iency : an Endoc rine Socie ty clini bhanu pract ice guide line. JCEM. 2010; 96(7) :1911 -30. Not Available [facility] ([facility]) [address] [facility], [place], [address], 10/04/2024 14:12:33 10/03/20 24 10/04/2024 HIV AB/P2 4 AG WITH REFLE X HIV Ab/P24 Ag screen Non Reacti ve non reacti ve HIV-1 /HIV- 2 antib odies and HIV-1 p24 antig en were NOT detec minal. There is no labor atory evide nce of HIV infec tion. HIV Negat tony Not Available [facility] ([facility]) [address] [facility], [place], [address], 10/04/2024 14:12:33 10/03/20 24 10/04/2024 ANTI- CCP AB, IGG/I GA anti-ccp Ab, IgG/IgA 6 units 0-19 Negat tony <20 Weak posit tony 20 - 39 Moder ate posit tony 40 - 59 Stron g posit tony >59 Not Available [facility] ([facility]) [address] [facility], [place], [address], 10/04/2024 14:12:34 10/03/20 24 10/04/2024 SEDIM ENTAT ION RATE- WESTE RGREN sedimentatio n rate-westerg rebekah 6 mm/HR 0-40 normal Not Available [facility] ([facility]) [address] [facility], [place], [address], 10/04/2024 14:12:34 10/03/20 24 10/04/2024 C-RAVINDER CTIVE PROTE IN, QUANT C-reactive protein, quant 2 mg/L 0-10 normal Not Available [facility] ([facility]) [address] [facility], [place], [address], 10/04/2024 14:12:35 08/28/20 25 08/29/2025 CBC WITH DIFFE RENTI AL/PL ATELE T WBC 12.1 x10e3 /uL 3.4-10 .8 above high normal Not Available [facility] ([facility]) [address] [facility], [place], [address], 08/29/2025 12:08:15 08/28/20 25 08/29/2025 CBC WITH DIFFE RENTI AL/PL ATELE T RBC 4.35 x10e6 /uL 3.77-5 .28 normal Not Available [facility] ([facility]) [address] [facility], [place], [address], 08/29/2025 12:08:15 08/28/20 25 08/29/2025 CBC WITH DIFFE RENTI AL/PL ATELE T hemoglobin 13.5 g/dL 11.1-1 5.9 normal Not Available [facility] ([facility]) [address] [facility], [place], [address], 08/29/2025 12:08:15 08/28/20 25 08/29/2025 CBC WITH DIFFE RENTI AL/PL ATELE T hematocrit 41.4 % 34.0-4 6.6 normal Not Available [facility] ([facility]) [address] [facility], [place], [address], 08/29/2025 12:08:15 08/28/2008/29/2025 CBC WITH DIFFE RENTI AL/PL ATELE T MCV 95 fL 79-97 normal Not Available [facility] ([facility]) [address] [facility], [place], [address], 08/29/2025 12:08:15 08/28/2008/29/2025 CBC WITH DIFFE RENTI AL/PL ATELE T MCH 31.0 pg 26.6-3 3.0 normal Not Available [facility] ([facility]) [address] [facility], [place], [address], 08/29/2025 12:08:15 08/28/20 25 08/29/2025 CBC WITH DIFFE RENTI AL/PL ATELE T MCHC 32.6 g/dL 31.5-3 5.7 normal Not Available [facility] ([facility]) [address] [facility], [place], [address], 08/29/2025 12:08:15 08/28/20 25 08/29/2025 CBC WITH DIFFE RENTI AL/PL ATELE T RDW 13.2 % 11.7-1 5.4 Not Available [facility] ([facility]) [address] [facility], [place], [address], 08/29/2025 12:08:15 08/28/20 25 08/29/2025 CBC WITH DIFFE RENTI AL/PL ATELE T platelets 452 x10e3 /uL 150-45 0 above high normal Not Available [facility] ([facility]) [address] [facility], [place], [address], 08/29/2025 12:08:15 08/28/20 25 08/29/2025 CBC WITH DIFFE RENTI AL/PL ATELE T neutrophils 46 % not estab. normal Not Available [facility] ([facility]) [address] [facility], [place], [address], 08/29/2025 12:08:15 08/28/20 25 08/29/2025 CBC WITH DIFFE RENTI AL/PL ATELE T lymphs 41 % not estab. normal Not Available [facility] ([facility]) [address] [facility], [place], [address], 08/29/2025 12:08:15 08/28/20 25 08/29/2025 CBC WITH DIFFE RENTI AL/PL ATELE T monocytes 8 % not estab. normal Not Available [facility] ([facility]) [address] [facility], [place], [address], 08/29/2025 12:08:15 08/28/20 25 08/29/2025 CBC WITH DIFFE RENTI AL/PL ATELE T eos 4 % not estab. normal Not Available [facility] ([facility]) [address] [facility], [place], [address], 08/29/2025 12:08:15 08/28/20 25 08/29/2025 CBC WITH DIFFE RENTI AL/PL ATELE T basos 1 % not estab. normal Not Available [facility] ([facility]) [address] [facility], [place], [address], 08/29/2025 12:08:15 08/28/20 25 08/29/2025 CBC WITH DIFFE RENTI AL/PL ATELE T immature cells MEDICAL CLAIMS MANAGER Not Available [facility] ([facility]) [address] [facility], [place], [address], 08/29/2025 12:08:15 08/28/20 25 08/29/2025 CBC WITH DIFFE RENTI AL/PL ATELE T neutrophils (absolute) 5.7 x10e3 /uL 1.4-7. 0 normal Not Available [facility] ([facility]) [address] [facility], [place], [address], 08/29/2025 12:08:15 08/28/20 25 08/29/2025 CBC WITH DIFFE RENTI AL/PL ATELE T lymphs (absolute) 4.9 x10e3 /uL 0.7-3. 1 above high normal Not Available [facility] ([facility]) [address] [facility], [place], [address], 08/29/2025 12:08:15 08/28/20 25 08/29/2025 CBC WITH DIFFE RENTI AL/PL ATELE T monocytes(ab solute) 0.9 x10e3 /uL 0.1-0. 9 normal Not Available [facility] ([facility]) [address] [facility], [place], [address], 08/29/2025 12:08:15 08/28/20 25 08/29/2025 CBC WITH DIFFE RENTI AL/PL ATELE T eos (absolute) 0.4 x10e3 /uL 0.0-0. 4 normal Not Available [facility] ([facility]) [address] [facility], [place], [address], 08/29/2025 12:08:15 08/28/20 25 08/29/2025 CBC WITH DIFFE RENTI AL/PL ATELE T baso (absolute) 0.1 x10e3 /uL 0.0-0. 2 normal Not Available [facility] ([facility]) [address] [facility], [place], [address], 08/29/2025 12:08:15 08/28/20 25 08/29/2025 CBC WITH DIFFE RENTI AL/PL ATELE T immature granulocytes 0 % not estab. Not Available [facility] ([facility]) [address] [place], [address], 08/29/2025 12:08:15 08/28/20 25 08/29/2025 CBC WITH DIFFE RENTI AL/PL ATELE T immature grans (abs) 0.0 x10e3 /uL 0.0-0. 1 Not Available [facility] ([facility]) [address], [place], [address], 08/29/2025 12:08:15 08/28/20 25 08/29/2025 CBC WITH DIFFE RENTI AL/PL ATELE T NRBC MEDICAL CLAIMS MANAGER Not Available [facility] Lab) [address], [place], [address], 08/29/2025 12:08:15 08/28/20 25 08/29/2025 CBC WITH DIFFE RENTI AL/PL ATELE T hematology comments: MEDICAL CLAIMS MANAGER Not Available [facility] ([facility]) [address], [place], [address], 08/29/2025 12:08:15 08/28/20 25 08/29/2025 COMP. METAB OLIC PANEL (14) glucose 83 mg/dL 70-99 normal Not Available [facility] ([facility]) [address], [place], [address], 08/29/2025 12:08:16 08/28/20 25 08/29/2025 COMP. METAB OLIC PANEL (14) BUN 15 mg/dL 8-27 normal Not Available [facility] ([facility]) [address], [place], [address], 08/29/2025 12:08:16 08/28/20 25 08/29/2025 COMP. METAB OLIC PANEL (14) creatinine 0.84 mg/dL 0.57-1 .00 normal Not Available [facility] ([facility]) [address] [place], [address], 08/29/2025 12:08:16 08/28/20 25 08/29/2025 COMP. METAB OLIC PANEL (14) eGFR 79 mL/mi n/1.7 3 >59 normal Not Available [facility] ([facility]) [address] [place], [address], 08/29/2025 12:08:16 08/28/20 25 08/29/2025 COMP. METAB OLIC PANEL (14) BUN/creatini ne ratio 18 12-28 normal Not Available [facility] ([facility]) [address] [facility], [place], [address], 08/29/2025 12:08:16 08/28/20 25 08/29/2025 COMP. METAB OLIC PANEL (14) sodium 140 mmol/ L 134-14 4 normal Not Available [facility] ([facility]) [address] [facility], [place], [address], 08/29/2025 12:08:16 08/28/20 25 08/29/2025 COMP. METAB OLIC PANEL (14) potassium 4.8 mmol/ L 3.5-5. 2 normal Not Available [facility] ([facility]) [address] [facility], [place], [address], 08/29/2025 12:08:16 08/28/20 25 08/29/2025 COMP. METAB OLIC PANEL (14) chloride 105 mmol/ L 96-106 normal Not Available [facility] ([facility]) [address] [facility], [place], [address], 08/29/2025 12:08:16 08/28/20 25 08/29/2025 COMP. METAB OLIC PANEL (14) carbon dioxide, total 21 mmol/ L 20-29 normal Not Available [facility] ([facility]) [address] [place], [address], 08/29/2025 12:08:16 08/28/20 25 08/29/2025 COMP. METAB OLIC PANEL (14) calcium 9.9 mg/dL 8.7-10 .3 normal Not Available [facility] ([facility]) [address] [facility], [place], [address], 08/29/2025 12:08:16 08/28/20 25 08/29/2025 COMP. METAB OLIC PANEL (14) protein, total 6.2 g/dL 6.0-8. 5 normal Not Available [facility] ([facility]) [address] [facility], [place], [address], 08/29/2025 12:08:16 08/28/20 25 08/29/2025 COMP. METAB OLIC PANEL (14) albumin 4.0 g/dL 3.9-4. 9 normal Not Available [facility] ([facility]) [address] [place], [address], 08/29/2025 12:08:16 08/28/20 25 08/29/2025 COMP. METAB OLIC PANEL (14) globulin, total 2.2 g/dL 1.5-4. 5 Not Available [facility] ([facility]) [address] [place], [address], 08/29/2025 12:08:16 08/28/20 25 08/29/2025 COMP. METAB OLIC PANEL (14) bilirubin, total <0.2 mg/dL 0.0-1. 2 Not Available [facility] ([facility]) [address] [place], [address], 08/29/2025 12:08:16 08/28/20 25 08/29/2025 COMP. METAB OLIC PANEL (14) alkaline phosphatase 73 IU/L 49-135 normal Not Available [facility] ([facility]) [address] [place], [address], 08/29/2025 12:08:16 08/28/20 25 08/29/2025 COMP. METAB OLIC PANEL (14) AST (SGOT) 16 IU/L 0-40 normal Not Available [facility] ([facility]) [address] [place], [address], 08/29/2025 12:08:16 08/28/20 25 08/29/2025 COMP. METAB OLIC PANEL (14) ALT (SGPT) 15 IU/L 0-32 normal Not Available [facility] ([facility]) [address] [facility] [place], [address], 08/29/2025 12:08:16 08/28/20 25 08/29/2025 LIPID PANEL cholesterol, total 186 mg/dL 100-19 9 normal Not Available [facility] ([facility]) [address] [facility] [place], [address], 08/29/2025 12:08:17 08/28/20 25 08/29/2025 LIPID PANEL triglyceride s 201 mg/dL 0-149 above high normal Not Available [facility] ([facility]) [address] [place], [address], 08/29/2025 12:08:17 08/28/20 25 08/29/2025 LIPID PANEL HDL cholesterol 51 mg/dL >39 normal Not Available [facility] ([facility]) [address] [place], [address], 08/29/2025 12:08:17 08/28/20 25 08/29/2025 LIPID PANEL VLDL cholesterol bhanu 34 mg/dL 5-40 Not Available [facility] ([facility]) [address] [place], [address], 08/29/2025 12:08:17 08/28/20 25 08/29/2025 LIPID PANEL LDL chol calc ([facility]) 101 mg/dL 0-99 above high normal Not Available [facility] ([facility]) [address] [facility] [place], [address], 08/29/2025 12:08:17 08/28/20 25 08/29/2025 LIPID PANEL LDL calc 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 Not Available [facility] ([facility]) [address] [facility], [place], [address], 08/29/2025 12:08:17 08/28/20 25 08/29/2025 TSH TSH 1.660 uIU/m L 0.450- 4.500 normal Not Available [facility] ([facility]) [address] [facility], [place], [address], 08/29/2025 12:08:17 08/28/20 25 08/29/2025 RHEUM ATOID FACTO R (RF) rheumatoid factor (rf) 16.2 IU/mL <14.0 above high normal Not Available [facility] ([facility]) [address] [facility], [place], [address], 08/29/2025 12:08:17 08/28/2008/29/2025 VITAM IN D, 25-HY [...] um and D. Castro medina [place]: [facility] . 2. Lindy esparza MF, Sienna kapoor [place], Adan off-F errar i ZHANG, et al. Evalu ation , treat ment, and preve ntion of vitam in D defic iency : an Endoc rine Socie ty clini bhanu pract ice guide line. JCEM. 2010; 96(7) :1911 -30. Not Available [facility] ([facility]) [address] [facility], [place], [address], 08/29/2025 12:08:18 08/28/20 25 08/29/2025 ANTI- CCP AB, IGG/I GA anti-ccp Ab, IgG/IgA 8 units 0-19 Negat tony <20 Weak posit tony 20 - 39 Moder ate posit tony 40 - 59 Stron g posit tony >59 Not Available [facility] ([facility]) [address] [facility], [place], [address], 08/29/2025 12:08:18 08/28/20 25 08/29/2025 ANTIN UCLEA R AB MULTI PLEX RFX 9 SAVANA direct Negati ve negati ve Not Available [facility] ([facility]) [address] [facility], [place], [address], 08/29/2025 12:08:19 08/28/20 25 08/29/2025 SEDIM ENTAT ION RATE- WESTE RGREN sedimentatio n rate-westerg rebekah 10 mm/HR 0-40 normal Not Available [facility] ([facility]) [address] [facility], [place], [address], 08/29/2025 12:08:19 08/28/20 25 08/29/2025 C-RAVINDER CTIVE PROTE IN, QUANT C-reactive protein, quant 2 mg/L 0-10 normal Not Available [facility] ([facility]) [address] [facility], [place], [address], 08/29/2025 12:08:20 08/29/20 25 04/25/2024 MAMMO , scree shahid, bilat eral No observ ation record ed. [email or web address] Not Available 09/01 14:31:21 08/29/20 25 08/28/2025 XR, hand, 3 or more view No observ ation record ed. [facility] (Radiology) [address] , [place], [address], 08/29/2025 14:44:39 09/20/20 25 09/17/2025 MAMMO , scree shahid, bilat eral No observ ation record ed. [email or web address] [facility] [address], [place], [address], 09/22/2025 08:36:48 09/20/2009/17/2025 jefferson JAIMES No observ ation record ed. [email or web address] [facility] [address], [place], [address], 09/22/2025 08:37:36 09/20/20 25 09/17/2025 jefferson JAIMES No observ ation record ed. [email or web address] [facility] [address], [place], [address], 09/22/2025 08:38:21 Result Notes None recorded. Problems Name Problem SNOMED Code Status Onset Date Resolution Date Notes Provider Name and Address Organization Details Recorded Time Pain of multiple joints 73469017 Active 2023 CARLOS Moralez [address] [place] [address], [address], [employer] 4 11:57:58 Rheumatoid factor detected 955799213 Active 2023 CARLOS Moralez [address] [place] [address], [address]83 8, [employer] 4 11:58:18 Depressive disorder 17299563 Active 2024 CARLOS Moralez [address] [place] [address], [address]46[address] 8, [employer] 5 12:07:04 Hyperlipide noble 44097639 Active 2024 CARLOS Moralez [address] [place] [address], 725[address]-351 8, [employer] 5 12:07:32 Allergic rhinitis 10996803 Active 2024 CARLOS Moralez [address] [place] [address], [address] 8, [employer] 5 12:07:56 Essential hypertensio n 82494203 Active 2024 CARLOS Moralez [address] [place] [address], [address] 8, [employer] 12:08:12 Pain of bilateral hands 2958349961981 9109 Active 2024 CARLOS Moralez [address] [place] [address], 646[address]121 8, [employer] 5 11:02:35 Pain of right shoulder joint 0036261719391 9100 Active 2024 CARLOS Moralez [address] [place] [address], 967[address]-152 8, [employer] 13:40:49 Problem Notes None recorded. Procedures Surgical History Date Name Laterality Status Provider Name and Address Organization Details Recorded Time 08/28/20 25 Joint Injection completed CARLOS Moralez [address] [place] [address], [address], [employer] 08/28/2025 13:39:24 04/25/20 24 Most Recent Mammogram completed [employer] 08/29/2025 09:44:33 12/16/19 22 Date of Last Pap Smear completed [employer] 08/29/2025 09:45:01 Breast Biopsy completed [employer] 10/03/2024 09:42:42 Hysterectomy completed [employer] 10/03/2024 09:42:42 Orthopedic Surgery completed [employer] 10/03/2024 09:45:37 Total Hysterectomy completed [employer] 10/03/2024 09:42:42 Imaging Results None recorded. [...] Updated DateTime 5 165.1 cm 26.4 kg/m2 51150.0 3 g 64 /min 95 % 95 % 98.2 [degF] 122/78 mm[Hg] Shopliment. 5 10:38:47 Date Recorded Body weight Body mass index (BMI) Body height Oxygen saturation Oxygen saturation in Arterial blood by Pulse oximetry Heart rate Systolic And Diastolic Systolic And Diastolic Systolic And Diastolic Provider Name and Address Organization Details Last Updated DateTime 4 91757.0 6 g 26.6 kg/m2 165.1 cm 97 % 97 % 65 /min 153/84 mm[Hg] 149/88 mm[Hg] 136/78 mm[Hg] [employer]. 09:49:11 Social History Question Answer Notes LastModified by Organizat ion Details LastModified Time Tobacco Smoking Status Former Smoker [employer] 8. 10/03/2024 09:42:41 Do You Have An Advance [...] Information not available 08/28/2025 What Type Of Corporate Tutor Do You Use? None Information not available [...] Or The Highest Degree You Have Received? 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 No Information not available 10/03/2024 What Was [...] anxious, or unable to sleep at night)? [id number] Information not available 10/03/2024 Do you have [...] COPD N Depression N Dermatologic Disorders N Lung Disease N Hypothyroidism N Developmental or Behavioral Disorders N Defects [...] Psychiatric/Mental Health Condition N Organ Transplant N Fibromyalgia N Headaches N Schizophrenia N Dialysis N Kidney Disease N Allergies/Hayfever N Heart [...] Recorded Time Tdap 2 completed CARLOS Moralez [address] [place] [address], [address], [employer] 10/03/2024 10:17:45 pneumococcal polysaccharide PPV23 9 completed CARLOS Moralez [address] [place] [address], [address], [employer] 10/03/2024 10:18:06 zoster live 4 completed CARLOS Moralez [address] [place] [address], [address], [employer] 10/03/2024 10:18:35 Influenza, split virus, quadrivalent, PF 0 completed Not Available [facility] 08/28/2025 10:11:20 COVID-19 vaccine, vector-nr, rS-Ad26, PF, 0.5 mL 1 completed Not Available [facility] 08/28/2025 10:11:20 COVID-19, mRNA, LNP-S, PF, 30 mcg/0.3 mL dose 1 completed Not Available [facility] 08/28/2025 10:11:20 Influenza, split virus, quadrivalent, PF 3 completed Not Available [facility] 08/28/2025 10:11:20 Past Encounters Encounter ID Performer Location Encounter Start Date Encounter Closed Date Diagnosis/Indication Diagnosis SNOMED-CT Code Diagnosis ICD10 Code Diagnosis IMO Codes Diagnosis Note [id number] CARLOS Moralez [facility] [address] [place] [address] 2 10/03/2024 09:36:18 10/03/2024 10:44:35 Adult health examination 190698539 Z00.00 Pain of mu ltiple joints 84034677 M25.50 Mobic hurt her stomachTri al Prednisone burst, sulfasalaz ine Body mass index 25-29 - overweight 648448949 Z68.26 [id number] CARLOS Moralez [facility] [address] [place] [id number] 2 08/28/2025 10:10:42 08/28/2025 11:20:59 Pain of bilateral hands 9325595596 2695583 M79.641 M79.642 78151364 Pain of mu ltiple joints 25760141 M25.50 [id number] [facility] 88250873 E78.5 60226272 Pain of ri ght shoulder joint 1388211051 5331513 M25.511 053494 Try intraartic ular injection to see if any improvemen t noted Health Concerns Section Related Observation LastModified by Organization Detai ls LastModified Time None Recorded Concern Status LastModified by Organization Details LastModified Time None Recorded Advance Directives Directive N: Payers Insurance Date Sequence Insurance Name Policy Number Policy Mcnair Covered Member ID Mcnair Member ID Guarantor Name 08/25/2025 1 [place] [id number] Ifrah Craig [id number] Ifrah Craig Notes Date Note Type [...] her joints and is exhausted. CARLOS Moralez [address] [place], [address], [employer] 10/03/2024 13:07:04 08/28/2025 text/html ROS as noted in the HPI Patient presents for followup.History of polyarthralgia. She has positive RF in the past. Saw rheumatology a few yeasr ago. They didn't really do much. Has pain, stiffness, swelling in her hands especially. Has severe right shoulder pain as well. Moved to [place] - saw a PCP there. Tried Celebrex but it doesn't really help. Sulfasalazine didn't help. Mobic does help but hurts her stomach. CARLOS Moralez [address] [place], [address], [employer] 08/28/2025 13:42:27 OBGyn Episode No OBEpisode recorded.
--- OUTSIDE RECORDS SUMMARY | 2025-09-26 10:30 | XMS_ITS | Clinical Summary ---
Author Organization [facility] Address [address], [address] [place] [address] Care Team Providers Care Industrial Staff Nurse Name Role Phone Anusha Burris MD Primary [...] of Treatment Not on file Care Teams Industrial Staff Nurse Relationship Specialty Start Date End Date Anusha Burris MD PCP - General 05/04/15
--- OUTSIDE RECORDS SUMMARY | 2025-09-26 10:30 | XMS_ITS | Clinical Summary ---
Author Organization Healthcare Address [address] [place] [address] Care Team Providers Care Specialty Foods Cook Name Role Phone Tere Levinie Nestor GONZALEZ Primary Care Provider [phone] Allergies Active Allergy Reactions Criticality Noted Date [...] 1-dose series) 2023 [facility]-Depression Screening 12/06/2023 12/06/2022 [id number] Vaccine (3 - season) 2025 11/17/2021, 02/26/2021 [...] patient's age to complete this topic Insurance [address] [address] Care Teams Specialty Foods Cook Relationship Specialty Start Date End Date Cassie Levin PA [address] [place] [address] PCP - General 04/02/21
--- NOTE | 2025-09-26 11:00 | US_ITS ---
FINAL REPORT CLINICAL HISTORY: abnormal US MM- US Guided Breast Biopsy dr. turcios Left breast x2 FINDINGS: ULTRASOUND-GUIDED LEFT BREAST CORE BIOPSY, BIOPSY 1 OF 2 HISTORY: Left breast mass at 11:00 TECHNIQUE: Limited images were obtained to localize region of interest. The left breast was prepped in a routine sterile fashion and locally anesthetized with 1% lidocaine. Standard written informed consent was obtained. Lesion of interest was localized at 11:00. Lesion was somewhat ill-defined with cystic and solid components. The biopsy needle was positioned within the outer periphery of the lesion. A total of 3 passes were made with a 16 gauge core biopsy needle. A biopsy marker clip was deployed in satisfactory position. Postbiopsy mammogram showed postbiopsy changes with clip in satisfactory position. Procedure was well tolerated . CONCLUSION: 1. Technically successful ultrasound guided core biopsy of left breast lesion located at 11:00 as above. 2. Biopsy marker clip deployed ULTRASOUND-GUIDED LEFT BREAST CORE BIOPSY, BIOPSY 2 OF 2 HISTORY: Left breast mass at 7:00 TECHNIQUE: Limited images were obtained to localize region of interest. The left breast was prepped in a routine sterile fashion and locally anesthetized with 1% lidocaine. Standard written informed consent was obtained. Lesion of interest was localized at 7:00. Ovoid hypoechoic lesion was seen in the posterior tissues near the chest wall. A total of 3 passes were made with a 16 gauge core biopsy needle. A biopsy marker clip was deployed in satisfactory position. Postbiopsy mammogram showed postbiopsy changes with clip in satisfactory position. Procedure was well tolerated . CONCLUSION: 1. Technically successful ultrasound guided core biopsy of left breast lesion located at 7:00 as above. 2. Biopsy marker clip deployed Authenticated and ERN
--- NOTE | 2025-09-26 14:14 | MM_ITS ---
FINAL REPORT CLINICAL HISTORY: VERIFY CLIP PLACEMENT FINDINGS: MAMMOGRAM LEFT TECHNIQUE: Standard digital 2-D views COMPARISON: 09/17/2025 DENSITY: There are scattered areas of fibroglandular density FINDINGS: 2 biopsy marker clips are noted in place. One is seen at 7:00. The 2nd is noted 9-10:00. There are no associated mammographic lesions such as mass is associated with the biopsy marker clips. Postbiopsy changes are seen. IMPRESSION: Biopsy marker clips in good position ASSESSMENT: A post-procedure mammogram is used to confirm the position and deployment of a breast tissue marker after a biopsy RECOMMENDATION: Pending histopathology evaluation Authenticated and ERN
== END 2025-09-26 23:59 | disposition home or self-care (01) ==
LOC: RAD 10:28
PROVIDERS: PCP Physician Assistant; Visit Provider Obstetrics & Gynecology
DX: N63.22 Unspecified lump in the left breast, upper inner quadrant (principal); R92.8 Other abnormal and inconclusive findings on diagnostic imaging of breast
CPT/HCPCS: 19083; 77065; A4648